=== PATIENT | male | born 1990 | race Two or more races ===

== ENCOUNTER 2024-05-04 18:46 | Inpatient (IN) ==
[2024-05-04] MEDS ORDERED: VANCOMYCIN CONSULT ACTIVE PRN (19:33)
--- NOTE | 2024-05-04 19:35 | Emergency Department Note ---
Impression & Plan Cellulitis of arm, left ED Provider Note NAME: LARA [id number] FERNY AGE: 33 SEX: M : 1990 ARRIVES VIA: Walk-In INFORMANT: Patient, ED PROVIDER(S): Siddhartha Scanlon DO CHIEF COMPLAINT: Cellulitis HPI: The patient is a 33-year-old male who presented to the emergency department from the [facility] for an evaluation of left arm swelling. The patient has been treated for cellulitis over the course the last few days. He has been the [facility] receiving IM Rocephin as well as oral Bactrim. He is also been on other antibiotics. He is not getting any better. They started noticing lymphangitic streaking and sent him to the emergency department today. ROS: See above HPI for pertinent positives & negatives. A total of 10 systems reviewed and were otherwise negative. PAST MEDICAL HISTORY: See Below PAST SURGICAL HISTORY: See Below FAMILY HISTORY: See Below SOCIAL HISTORY: See Below HOME MEDICATIONS: See Below ALLERGIES: See Below VITALS: See Below PHYSICAL EXAMINATION: GENERAL: Patient is awake alert in no acute distress patient is resting comfortably and showing no signs of anxiety EYES: The conjunctivae are clear. The pupils are round and reactive. EARS, NOSE, MOUTH AND THROAT: The nose is without any evidence of any deformity. NECK: The neck is nontender and supple. RESPIRATORY: Normal respiratory effort is noted there is no evidence of wheezing rhonchi or rales CARDIOVASCULAR: Regular rate and rhythm noted there no murmurs rubs or gallops normal S1 normal S2. GASTROINTESTINAL: The abdomen is soft. Abdomen is nontender. MUSCULOSKELETAL/EXTREMITIES: There is no evidence of gross deformity full range of motion is noted in the hips and shoulders. SKIN: There is swelling and erythema noted to the dorsum of the left hand. There is lymphangitic streaking going up the arm. There are small ulcerations over the dorsum of the left wrist as well as the left antecubital fossa. Pulses are symmetric in both hands. NEUROLOGIC: Patient is awake alert and oriented x3 MEDICAL DECISION MAKING: The patient is a 33-year-old male who presented to the emergency department for an evaluation of left arm swelling and redness. The patient has been dealing with a left arm cellulitis over the course of the last few days. He has been receiving antibiotics both parenterally as well as orally in the [facility]. He continues to have worsening redness and now has lymphangitic streaking. For this reason he was sent to the emergency department for further evaluation. I discussed the patient's laboratory results with him. He was reevaluated multiple times. He was treated with IV antibiotics and IV pain medication. Ultimately given the patient's findings on physical exam I discussed his case with the on-call [facility]. They have agreed to evaluate the patient in the emergency department. Triage Nursing notes reviewed. Prior medical records reviewed Vital Signs: reviewed and remarkable for no significant abnormalities Differential diagnosis: Cellulitis, abscess, MRSA infection, DVT, necrotizing fasciitis, dermatitis, drug eruption, allergic reaction, as well as other pathologies. ER treatment provided: See below Diagnostics interpreted by me: ECG: EKG was obtained in the emergency department. My interpretation is normal sinus rhythm at 67 bpm. There is no ectopy. There is no acute ST segment abnormalities noted. No previous tracing was available. Cardiac Monitoring: An order was placed for continuous cardiac monitoring. The monitor shows a rate of 73 bpm with sinus rhythm. Laboratory studies: As stated above and show below. Imaging studies: See below. Radiographic imaging was reviewed by myself Consultation(s): I discussed this case with Dr. Carter who is on-call for the [facility]. Past Med/Surg History Problem List (Updated 05/04/24 @ 20:44 by Siddhartha Scanlon DO) Cellulitis of arm, left (Acute) Social History Smoking Status: Never smoker Preferred Language: Salvadorean Feels Safe at Home: Yes Results & Data (ED) Vital Signs Vital Signs - 24 hr 05/04/24 18:59 05/04/24 19:33 Temperature 36.8 C Temperature Source Oral Pulse Rate 78 73 Respiratory Rate 18 Respiratory Effort / Characteristics Non-Labored Spontaneous Respiratory Depth Normal Respiratory Pattern Regular Blood Pressure 135/80 Blood Pressure Mean 98 Pulse Oximetry 98 Oxygen Delivery Method Room Air Sepsis Recent Fever Within 48 Hours Yes Sepsis New/Unexplained Change in Mental Status No Sepsis Action Taken by Nursing No Action Required Home Medications Current Medication List: was personally reviewed by me Laboratory Data Attestation: I reviewed the patient's lab results. 05/04/24 19:20 05/04/24 19:20 Lab Results 05/04/24 Range/Units 19:20 WBC 12.90 H (4.8-10.8) K/ul RBC 4.65 L (4.70-6.10) M/uL Hgb 13.7 L (14.0-18.0) g/dl Hct 39.8 L (42.0-52.0) % MCV 85.6 (80.0-100.0) fL MCH 29.5 (25.0-34.0) pg MCHC 34.4 (32.0-36.0) g/dL RDW Std Deviation 39.8 (36.4-46.3) fL RDW Coeff of Leslye 12.8 (11.5-14.5) % Plt Count 232 (130-400) K/uL MPV 8.8 L (9.4-12.4) fL Immature Gran % (Auto) 0.5 % Neut % (Auto) 69.9 % Lymph % (Auto) 18.1 % [place] % (Auto) 9.5 % Eos % (Auto) 1.6 % Baso % (Auto) 0.4 % Neut # (Auto) 9.01 H (1.40-6.50) K/uL Lymph # (Auto) 2.34 (1.20-3.40) K/uL [place] # (Auto) 1.23 H (0.11-0.59) K/uL Eos # (Auto) 0.20 (0.00-0.50) K/uL Baso # (Auto) 0.05 (0.00-0.20) K/uL Immature Gran # (Auto) 0.07 (0.01-0.20) K/uL Sodium 135 L (136-145) mmol/L Potassium 4.2 (3.5-5.1) mmol/L Chloride 103 (98-107) mmol/L Carbon Dioxide 25 (21-32) mmol/L Anion Gap 7 (3-11) BUN 15 (6-23) mg/dl Creatinine 1.08 (0.6-1.4) mg/dl Est Cr Clr Drug Dosing 101.8 ml/min Est GFR ( Amer) 102.5 ml/min Est GFR (Non-Af Amer) 88.5 ml/min BUN/Creatinine Ratio 13.9 (10-20) Glucose 84 (70-99(Fasting)) mg/dl Lactate 0.6 (0.4-2.0) mmol/L Calcium 9.6 (8.6-10.3) mg/dl Magnesium 2.1 (1.7-2.4) mg/dl Total Bilirubin 1.3 H (0.2-1.0) mg/dl Direct Bilirubin 0.2 (0-0.2) mg/dl AST 21 (13-39) U/L ALT 22 (7-52) U/L Alkaline Phosphatase 63 (34-104) U/L Troponin I High Sens 2.4 (0-20) pg/ml Total Protein 7.6 (6.0-8.3) gm/dl Albumin 4.6 (3.4-5.0) gm/dl Procalcitonin < 0.02 (0-0.5) ng/ml Administered Medications Discontinued Medications Ceftriaxone Sodium (Rocephin) 2,000 mg in 50 mls @ 100 mls/hr IV NOW STA Stop: 05/04/24 20:02 Last Infusion: 05/04/24 20:38 Dose: Infused Documented By: Admin: 05/04/24 20:01 Dose: 100 mls/hr Documented By: MISTI Morphine Sulfate (Morphine Sulfate 4 Mg/Ml 1 Ml Carp\Vial) 4 mg IV NOW STA Stop: 05/04/24 19:56 Last Admin: 05/04/24 20:01 Dose: 4 mg Documented By: MISTI Ondansetron HCl (Ondansetron Inj 2 Mg/Ml 2 Ml Vial) 4 mg IV NOW STA Stop: 05/04/24 19:56 Last Admin: 05/04/24 20:01 Dose: 4 mg Documented By: MISTI Imaging Data Attestation: I personally reviewed and interpreted this imaging study as follows: My Impression: 1 view chest x-ray was obtained in the emergency department. My interpretation is no free air or definite infiltrate, final report below. Radiologist's Impression: Chest X-Ray 05/04/24 19:33 XR chest 1V portable CLINICAL HISTORY: Sepsis TECHNIQUE: Single frontal radiograph of the chest was obtained. Comparison: None available at the time of this dictation. FINDINGS: No lines and tubes are seen. Cardiomegaly is noted. The lungs are clear. No evidence of pleural effusion or pneumothorax. IMPRESSION: No acute chest disease. ACT 112: Negative or not required by law. Electronically signed by: Simone Valle M.D. 05/04/2024 8:16 PM Discharge Plan Visit Data Chief Complaint: Wound Stated Complaint: WOUND - ONGOING ISSUE AFTER GETTING ROCEPHIN ED Provider: Siddhartha Scanlon Discharge Problem: Cellulitis of arm, left Patient Disposition: Being Evaluated by Hospitalist Forms Stand Alone Forms: [facility] Referrals Referrals: PCP,NO [Physician] -
[2024-05-04 19:48] LABS: Basophils # (auto) 0.05 K/uL (0.00-0.20); Basophils % (auto) 0.4 %; Eosinophils % (auto) 1.6 %; Hematocrit (blood only) 39.8 % (42.0-52.0); Hemoglobin 13.7 g/dl (14.0-18.0); Immature Granulocytes # (auto) 0.07 K/uL (0.01-0.20); Immature Granulocytes % (auto) 0.5 %; Lymphocytes # (auto) 2.34 K/uL (1.20-3.40); Lymphocytes % (auto) 18.1 %; Mean Corpuscular Hemoglobin 29.5 pg (25.0-34.0); Mean Corpuscular Hgb Conc 34.4 g/dL (32.0-36.0); Mean Corpuscular Volume 85.6 fL (80.0-100.0); Mean Platelet Volume 8.8 fL (9.4-12.4); Monocytes # (auto) 1.23 K/uL (0.11-0.59); Monocytes % (auto) 9.5 %; Neutrophils # (auto) 9.01 K/uL (1.40-6.50); Neutrophils % (auto) 69.9 %; Platelet Count 232 K/uL (130-400); RDW Coefficient of Variation 12.8 % (11.5-14.5); RDW Standard Deviation 39.8 fL (36.4-46.3); Red Blood Count 4.65 M/uL (4.70-6.10)
[2024-05-04 19:59] LABS: Albumin Level 4.6 gm/dl (3.4-5.0); BUN Creatinine Ratio 13.9 (10-20); Bilirubin Direct 0.2 mg/dl (0-0.2); Bilirubin,Total 1.3 mg/dl (0.2-1.0); Calcium 9.6 mg/dl (8.6-10.3); Creatinine Clr Calc Pharmacy 101.8 ml/min; Est GFR (African American) 102.5 ml/min; Est GFR (Non-African American) 88.5 ml/min; Magnesium 2.1 mg/dl (1.7-2.4); Potassium 4.2 mmol/L (3.5-5.1); Total Protein 7.6 gm/dl (6.0-8.3)
[2024-05-04] MEDS: ONDANSETRON INJ 2 MG/ML 2 ML VIAL IV STA (20:01)
[2024-05-04] MEDS: MoRPHine SULFATE 4 MG/ML 1 ML CARP\\VIAL IV STA (20:01)
[2024-05-04] MEDS: cefTRIAXone SODIUM 2,000 MG/50 ML BAG IV STA (20:01)
[2024-05-04 20:06] LABS: Troponin I High Sensitivity 2.4 pg/ml (0-20)
--- NOTE | 2024-05-04 20:17 | XRay Report ---
XR chest 1V portable CLINICAL HISTORY: Sepsis TECHNIQUE: Single frontal radiograph of the chest was obtained. Comparison: None available at the time of this dictation. FINDINGS: No lines and tubes are seen. Cardiomegaly is noted. The lungs are clear. No evidence of pleural effus ion or pneumothorax. IMPRESSION: No acute chest disease. ACT 112: Negative or not required by law. Electronically signed by: Simone Valle M.D. 05/04/2024 8:16 PM
[2024-05-04] MEDS: VANCOMYCIN HCL 1,750 MG in SODIUM CHLORIDE 0.9% 500 ML IV ONE (20:56)
[2024-05-04] MEDS: HYDROmorphone INJ 0.5 MG/0.5 ML SYR IV STA (21:28)
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
[2024-05-04] MEDS ORDERED: POLYETHYLENE (MIRALAX) 17 GM PACK PO PRN (22:48)
[2024-05-04] MEDS: oxyCODONE HCL IR 5 MG TAB (IMMEDIATE RELEASE) PO PRN (23:28)
[2024-05-04] MEDS: LORazepam 0.5 MG TAB SL STA (23:30)
[2024-05-04] MEDS: PIPER/TAZO 4.5g in D5W MINI-B 100 ML IV ONE (23:54)
[2024-05-05] MEDS: ENOXAPARIN INJ 40 MG/0.4 ML SYR SQ SCH (00:08)
[2024-05-05 00:31] LABS: Appearance Urine Cloudy (Clear); Bacteria Urine Automated None Seen (None Seen); Bilirubin Urine Negative (Negative); Blood Urine Negative (Negative); Cast Urine Automated 0-2 /lpf (0-2); Color Urine Yellow; Epithelial Cell Urine Auto 0-2 /hpf (0-2); Glucose Urine UA Negative (Negative); Ketones Urine Negative (Negative); Leukocyte Esterase Urine Negative (Negative); Nitrite Urine Negative (Negative); Protein Urine Negative (Negative); RBC Urine Automated 0-2 /hpf (0-2); Specific Gravity Urine 1.014 (1.000-1.030); Urobilinogen Urine Negative (Negative); WBC Urine Automated 0-5 /hpf (0-5); pH Urine 6.5 (4.5-7.5)
--- NOTE | 2024-05-05 04:08 | Pharmacy Report ---
Pharmacy PK ABX Note - Date of Service May 05, 2024 - Assessment and Plan Assessment * Mr Marlon is a 33 year old incarcerated M receiving vancomycin, Zosyn for treatment of L arm cellulitis. * Pt has no significant PMH, with the exception of some wounds for the past few months. It sounds like they started in his armpits and now involve his LUE. He has received abx recently, including doxycycline and Bactrim, which have not been effective. * Pertinent microbiologic data includes: BCx pending * ID has been consulted. Plan Vancomycin * Loading dose: 1750 mg IV x 1 * Maintenance dose: 1250 mg IV every 12 hours * Regimen is predicted to achieve target AUC/STEPHANI of 400-600 mg/L.hr * Will check a vancomycin level in 1-2 days Zosyn 4.5gm IV q8h Pharmacy will continue to follow and will adjust dose/frequency as necessary. Thank you. Pharmacy has transitioned to AUC monitoring for vancomycin. AUC/STEPHANI is the preferred PK/PD target and is associated with decreased risk of nephrotoxicity compared to traditional trough targets.
[2024-05-05] MEDS: ACETAMINOPHEN 325 MG TAB PO PRN (04:59)
[2024-05-05] MEDS: diphenhydrAMINE Capsule 25 MG CAP PO ONE ×2 (05:17→23:15)
[2024-05-05] MEDS: VANCOMYCIN HCL 1,250 MG in SODIUM CHLORIDE 0.9% 250 ML IV SCH (05:20)
[2024-05-05 06:13] LABS: Basophils # (auto) 0.04 K/uL (0.00-0.20); Basophils % (auto) 0.4 %; Eosinophils # (auto) 0.21 K/uL (0.00-0.50); Eosinophils % (auto) 2.1 %; Hematocrit (blood only) 36.6 % (42.0-52.0); Hemoglobin 12.6 g/dl (14.0-18.0); Immature Granulocytes # (auto) 0.06 K/uL (0.01-0.20); Immature Granulocytes % (auto) 0.6 %; Lymphocytes # (auto) 1.83 K/uL (1.20-3.40); Lymphocytes % (auto) 18.5 %; Mean Corpuscular Hemoglobin 29.6 pg (25.0-34.0); Mean Corpuscular Hgb Conc 34.4 g/dL (32.0-36.0); Mean Corpuscular Volume 86.1 fL (80.0-100.0); Monocytes # (auto) 0.89 K/uL (0.11-0.59); Neutrophils # (auto) 6.85 K/uL (1.40-6.50); Neutrophils % (auto) 69.4 %; Platelet Count 210 K/uL (130-400); RDW Coefficient of Variation 12.8 % (11.5-14.5); Red Blood Count 4.25 M/uL (4.70-6.10); White Blood Count 9.88 K/ul (4.8-10.8)
[2024-05-05] MEDS: HYDROmorphone INJ 0.5 MG/0.5 ML SYR IV PRN (06:24)
[2024-05-05 06:31] LABS: BUN Creatinine Ratio 10.7 (10-20); Calcium 8.4 mg/dl (8.6-10.3); Creatinine Clr Calc Pharmacy 97.8 ml/min; Est GFR (African American) 98.1 ml/min; Est GFR (Non-African American) 84.7 ml/min; Potassium 4.2 mmol/L (3.5-5.1)
[2024-05-05] MEDS: PIPERACILLIN/TAZOBACTAM 4.5 GM in DEXTROSE 5% MINI-B 100 ML IV SCH (07:09)
--- NOTE | 2024-05-05 08:39 | Hospitalist Progress Note ---
Date of Service May 05, 2024 Assessment & Plan (1) Cellulitis of arm, left: Plan: 33 yo M with no significant past medical history presents with infection of the left upper extremity. Patient states he had wounds in both armpits few months back and was treated with antibiotics (these are now healed). Now is having wounds in his left upper extremity for last couple of months on and off. The wounds are located just above the wrist multiple erythematous nodules seen. Streak like lymphatic spread seen above the lesions. Also pimple-like lesion seen on the right arm above the elbow region. Patient states he was treated with doxycycline and Bactrim but is not helping. Denies any fevers. Has pain in the lesions area. Denies any headache. Has cough with phlegm. Smokes e-cigarettes. Has some runny nose from allergies. Vision is okay. Some itching in his left ear. No nausea. States had one episode of chest tightness thinks from anxiety. Denies shortness of breath. No abdominal pain. Once in a while he has blood when he wipes after going bowel movement. Normal micturition. Resting comfortably and hemodynamically stable. Left upper extremity cellulitis maculopapular lesions seen above right wrist with lymphatic streaks seen and also a lesion in the left arm above elbow States having these lesions last couple of months on and off. And was treated with Bactrim and doxycycline per patient. Also had similar lesions on both his axillary region few months back and was treated- these are now healed. MRSA screen positive ER started on IV Vanco. IV Zosyn added on admission, will cont. for now. Will monitor response wound cultx ordered wound care ordered ID consult for further recommendations. Questionable GI bleed hb 13.7 will check stool for Hemoccult iron studies. Chest tightness says from anxiety two sets of troponin negative ekg ok will monitor. DVT prophylaxis - Lovenox Disposition - Medical floor Full code Admission and Anticipated Discharge Date Admission Date: May 04, 2024 Subjective Pt seen in follow up of cellulitis JADA Pt is a prisoner at [facility] ([place]) Was treated with abx at [facility] Currently on vanco + zosyn , blood cultx pending Pt is laying in bed in NAD, besides pain / discomfort of LUE denies any other c omplaints No fever, chills, chest pain, shortness of breath, no abd. pain Review of Systems Review of Systems: All systems reviewed & are unremarkable except as noted in Subjective Physical Exam Physical Exam: General- Not in distress Head- atraumatic Eyes- PERRL. ENT- oropharynx clear Neck- supple, no JVD. Lungs- clear to auscultation no wheezing or crackles Heart- regular rate and rhythm; no murmur, no gallop. Abdomen- normal bowel sounds, soft, nontender, no distension. Extremities- no pretibial edema, Neuro- alert, oriented x 3; PERRL, no facial palsy; no dysarthria; moves extremities. Skin- maculopapular lesions seen on above right wrist, streak like lymphatic spread seen from these lesions to elbow region. Another maculopapular lesion seen above left elbow region Results & Data Results & Data Vital Signs (Past 12 Hours) Vital Signs Temp Pulse Pulse Resp BP BP Pulse Ox 05/05/24 07:07 37.2 C 89 16 132/72 96 05/04/24 22:45 36.7 C 79 16 158/83 H 96 05/04/24 22:37 80 17 137/88 99 05/04/24 21:39 74 20 149/91 H 97 05/04/24 21:00 69 18 158/91 H 97 O2 Del Method 05/05/24 07:07 Room Air 05/04/24 22:45 Room Air 05/04/24 22:37 Room Air 05/04/24 21:39 Room Air 05/04/24 21:00 Room Air Laboratory Results 05/05/24 05/05/24 05/04/24 Range/Units Unknown 05:34 Unknown WBC 9.88 (4.8-10.8) K/ul RBC 4.25 L (4.70-6.10) M/uL Hgb 12.6 L (14.0-18.0) g/dl Hct 36.6 L (42.0-52.0) % MCV 86.1 (80.0-100.0) fL MCH 29.6 (25.0-34.0) pg MCHC 34.4 (32.0-36.0) g/dL RDW Std Deviation 40.0 (36.4-46.3) fL RDW Coeff of Leslye 12.8 (11.5-14.5) % Plt Count 210 (130-400) K/uL MPV 9.0 L (9.4-12.4) fL Immature Gran % (Auto) 0.6 % Neut % (Auto) 69.4 % Lymph % (Auto) 18.5 % Cherokee % (Auto) 9.0 % Eos % (Auto) 2.1 % Baso % (Auto) 0.4 % Neut # (Auto) 6.85 H (1.40-6.50) K/uL Lymph # (Auto) 1.83 (1.20-3.40) K/uL Cherokee # (Auto) 0.89 H (0.11-0.59) K/uL Eos # (Auto) 0.21 (0.00-0.50) K/uL Baso # (Auto) 0.04 (0.00-0.20) K/uL Immature Gran # (Auto) 0.06 (0.01-0.20) K/uL Sodium 135 L (136-145) mmol/L Potassium 4.2 (3.5-5.1) mmol/L Chloride 103 (98-107) mmol/L Carbon Dioxide 26 (21-32) mmol/L Anion Gap 6 (3-11) BUN 12 (6-23) mg/dl Creatinine 1.12 (0.6-1.4) mg/dl Est Cr Clr Drug Dosing 97.8 ml/min Est GFR ( Amer) 98.1 ml/min Est GFR (Non-Af Amer) 84.7 ml/min BUN/Creatinine Ratio 10.7 (10-20) Glucose 100 H (70-99(Fasting)) mg/dl Estimat Average Glucose Pending Hemoglobin A1c Pending Lactate (0.4-2.0) mmol/L Calcium 8.4 L (8.6-10.3) mg/dl Magnesium 2.0 (1.7-2.4) mg/dl Iron 21 L (35-175) mcg/dl TIBC 288 (250-450) mcg/dl Unsaturated IBC 267 (155-355) mcg/dl Transferrin % Sat 7 L (20-50) % Total Bilirubin (0.2-1.0) mg/dl Direct Bilirubin (0-0.2) mg/dl AST (13-39) U/L ALT (7-52) U/L Alkaline Phosphatase (34-104) U/L Troponin I High Sens 3.0 (0-20) pg/ml Total Protein (6.0-8.3) gm/dl Albumin (3.4-5.0) gm/dl Vitamin B12 Pending Folate Pending Procalcitonin (0-0.5) ng/ml Urine Color Yellow Urine Appearance Cloudy A (Clear) Urine pH 6.5 (4.5-7.5) Ur Specific Bland 1.014 (1.000-1.030) Urine Protein Negative (Negative) Urine Glucose (UA) Negative (Negative) Urine Ketones Negative (Negative) Urine Blood Negative (Negative) Urine Nitrite Negative (Negative) Urine Bilirubin Negative (Negative) Urine Urobilinogen Negative (Negative) Ur Leukocyte Esterase Negative (Negative) Urine WBC (Auto) 0-5 (0-5) /hpf Urine RBC (Auto) 0-2 (0-2) /hpf U Hyaline Cast (Auto) 0-2 (0-2) /lpf U Epithel Cells (Auto) 0-2 (0-2) /hpf Urine Bacteria (Auto) None Seen (None Seen) Nasal Screen MRSA (PCR) Positive A (Negative) 05/04/24 Range/Units 19:20 WBC 12.90 H (4.8-10.8) K/ul RBC 4.65 L (4.70-6.10) M/uL Hgb 13.7 L (14.0-18.0) g/dl Hct 39.8 L (42.0-52.0) % MCV 85.6 (80.0-100.0) fL MCH 29.5 (25.0-34.0) pg MCHC 34.4 (32.0-36.0) g/dL RDW Std Deviation 39.8 (36.4-46.3) fL RDW Coeff of Leslye 12.8 (11.5-14.5) % Plt Count 232 (130-400) K/uL MPV 8.8 L (9.4-12.4) fL Immature Gran % (Auto) 0.5 % Neut % (Auto) 69.9 % Lymph % (Auto) 18.1 % Cherokee % (Auto) 9.5 % Eos % (Auto) 1.6 % Baso % (Auto) 0.4 % Neut # (Auto) 9.01 H (1.40-6.50) K/uL Lymph # (Auto) 2.34 (1.20-3.40) K/uL Cherokee # (Auto) 1.23 H (0.11-0.59) K/uL Eos # (Auto) 0.20 (0.00-0.50) K/uL Baso # (Auto) 0.05 (0.00-0.20) K/uL Immature Gran # (Auto) 0.07 (0.01-0.20) K/uL Sodium 135 L (136-145) mmol/L Potassium 4.2 (3.5-5.1) mmol/L Chloride 103 (98-107) mmol/L Carbon Dioxide 25 (21-32) mmol/L Anion Gap 7 (3-11) BUN 15 (6-23) mg/dl Creatinine 1.08 (0.6-1.4) mg/dl Est Cr Clr Drug Dosing 101.8 ml/min Est GFR ( Amer) 102.5 ml/min Est GFR (Non-Af Amer) 88.5 ml/min BUN/Creatinine Ratio 13.9 (10-20) Glucose 84 (70-99(Fasting)) mg/dl Estimat Average Glucose Hemoglobin A1c Lactate 0.6 (0.4-2.0) mmol/L Calcium 9.6 (8.6-10.3) mg/dl Magnesium 2.1 (1.7-2.4) mg/dl Iron (35-175) mcg/dl TIBC (250-450) mcg/dl Unsaturated IBC (155-355) mcg/dl Transferrin % Sat (20-50) % Total Bilirubin 1.3 H (0.2-1.0) mg/dl Direct Bilirubin 0.2 (0-0.2) mg/dl AST 21 (13-39) U/L ALT 22 (7-52) U/L Alkaline Phosphatase 63 (34-104) U/L Troponin I High Sens 2.4 (0-20) pg/ml Total Protein 7.6 (6.0-8.3) gm/dl Albumin 4.6 (3.4-5.0) gm/dl Vitamin B12 Folate Procalcitonin < 0.02 (0-0.5) ng/ml Urine Color Urine Appearance (Clear) Urine pH (4.5-7.5) Ur Specific Bland (1.000-1.030) Urine Protein (Negative) Urine Glucose (UA) (Negative) Urine Ketones (Negative) Urine Blood (Negative) Urine Nitrite (Negative) Urine Bilirubin (Negative) Urine Urobilinogen (Negative) Ur Leukocyte Esterase (Negative) Urine WBC (Auto) (0-5) /hpf Urine RBC (Auto) (0-2) /hpf U Hyaline Cast (Auto) (0-2) /lpf U Epithel Cells (Auto) (0-2) /hpf Urine Bacteria (Auto) (None Seen) Nasal Screen MRSA (PCR) (Negative) Medications Administered Current Inpatient Medications Acetaminophen (Acetaminophen 325 Mg Tab) 650 mg PO Q4H PRN PRN Reason: pain/fever Stop: 06/03/24 22:47 Last Admin: 05/05/24 04:59 Dose: 650 mg Enoxaparin Sodium (Enoxaparin Inj 40 Mg/0.4 Ml Syr) 40 mg SQ PM RENETTA Stop: 06/03/24 22:47 Last Admin: 05/05/24 00:08 Dose: 40 mg Hydromorphone HCl (Hydromorphone Inj 0.5 Mg/0.5 Ml Syr) 0.5 mg IV Q4H PRN PRN Reason: Severe Pain (Scale 7, 8, 9,10) Stop: 05/18/24 22:47 Last Admin: 05/05/24 06:24 Dose: 0.5 mg Hydromorphone HCl (Hydromorphone Hcl 2 Mg Tab) 2 mg PO Q4H PRN PRN Reason: Mod-Sev Pain (Scale 4-10) Stop: 05/19/24 06:42 Piperacillin Sod/Tazobactam (Sod 4.5 gm/ Dextrose) 100 mls @ 25 mls/hr IV Q8H RENETTA; Protocol Stop: 05/12/24 05:59 Last Admin: 05/05/24 07:09 Dose: 25 mls/hr Vancomycin HCl 1,250 mg/ (Sodium Chloride) 275 mls @ 200 mls/hr IV Q12H RENETTA Stop: 05/12/24 05:59 Last Infusion: 05/05/24 07:17 Dose: Infused Miscellaneous Information (Vancomycin Consult Active) 1 each N/A UD PRN PRN Reason: Consult Stop: 06/03/24 19:32 Polyethylene Glycol (Polyethylene (Miralax) 17 Gm Pack) 17 gm PO DAILY PRN PRN Reason: Constipation Stop: 06/03/24 22:47
[2024-05-05 09:10] LABS: Folate (Folic Acid),Ser orPlas 13.42 ng/ml (>5.38)
[2024-05-05] MEDS: FAMOTIDINE 20MG IV PUSH 20 MG/5 ML SYR IV ONE (13:35)
[2024-05-05 14:42] LABS: C Reactive Protein 5.43 mg/dl (0-0.5)
[2024-05-05] MEDS: HYDROmorphone HCL 2 MG TAB PO PRN (15:10)
[2024-05-05] MEDS: OPTIRAY 320 100ml IV ONE (15:18)
--- NOTE | 2024-05-05 17:02 | CT Scan Report ---
CT wrist LT w con CLINICAL HISTORY: r/o abscess TECHNIQUE: Multidetector row helical CT of the right wrist was performed without intravenous contrast . Coronal and sagittal reformations were obtained. Automated dose lowering techniques and/or adjustme nt according to patient size were utilized for this examination. CT DOSE: 366.11 mGy.cm Comparison: None available at the time of this dictation. FINDINGS: The osseous structures are without fracture or dislocation. No joint effusion is seen. The joint spa david are maintained. There is skin thickening and soft tissue swelling in the distal lateral wrist. Th ere is an irregular fluid collection measuring approximately 18 x 9 mm. No well organized enhancing w all is seen. There is no muscle atrophy. IMPRESSION: Findings are compatible with cellulitis with a phlegmon versus developing abscess. No mature abscess is seen. ACT 112: Negative or not required by law. Electronically signed by: Simone Valle M.D. 05/05/2024 5:01 PM
--- NOTE | 2024-05-05 17:02 | Orthopedic Consultation ---
Date of Service May 05, 2024 Assessment & Plan (1) Cellulitis of arm, left: 33-year-old male presents with recurrent arm and upper extremity infections of unclear etiology. It is almost like he is thrown some septic emboli of some fashion. All areas look pretty benign and currently mostly cellulitis except f or the sore area on the radial styloid of his wrist which looks to be slightly purulent. Plan: I do believe this patient needs a medical and infectious disease workup. May need some workup to determine whether these do not some septic emboli. Will check a sed rate and C-reactive protein. The radial styloid area really would be best treated with an open irrigation debridement of this. I discussed this with him and he would like to give it a little time to see if antibiotics will take care of it. He does we want he is refusing a surgical management at this point. In light of this we will I try to soak this a couple times a day and see how it does since it is draining it may clear up with antibiotics. It certainly likely carlos take longer. Do once again I recommendation would be a surgical irrigation debridement of this area. Will follow along. Will try to get him to soak this at 3 times a day and a one third combination of hydrogen peroxide, Betadine, normal saline. Any orthopedic questions can be directed at [phone]. (2) Left breast abscess: History of Present Illness Reason for Consultation: . Left wrist and arm infection. Requesting Physician: . Attending Physician: Isac Alamo MD . Patient is a 33-year-old [id number] prisoner who I was consulted on for left arm infection. Patient has been incarcerated for several years. Recently he has developed these subcutaneous kind of infections initially in his armpits that several months ago resolved with antibiotics. More recently this started in his left arm. There is been no known trauma He was put on antibiotics. He has apparently grown out MRSA. He says the things have been developing. He says 1 developed in his mouth and ruptured was pretty odorous and then it resolved. The ones in his axilla apparently have resolved as well. He is got these isolated areas on his left wrist and his left distal arm area. Allergies Allergy/AdvReac Type Severity Reaction Status Date / Time No Known Allergies Allergy Unverified 05/04/24 21:02 Home Medications Medication Instructions Recorded Confirmed Type benzoyl peroxide 5 % topical 1 applic topical AMHS 05/04/24 05/04/24 History cleanser sulfamethoxazole 800 1 tab PO BID 05/04/24 05/04/24 History mg-trimethoprim 160 mg tablet Past Med/Surg History Problem List (Updated 05/05/24 @ 17:00 by Burak Menon MD) Left breast abscess Cellulitis of arm, left (Acute) Social History Smoking Status: Current every day smoker Tobacco Type: E-cigarettes / Vaping Second Hand Exposure: No; Do You Dip or Chew Tobacco: No; Tobacco Cessation Education Requested by Patient: No Hx Alcohol Use: No (not since incarceration) Hx Substance Use: Yes Last Used Substance Other:: 5-6 years ago Preferred Language: Bulgarian Communication Ability: Effective Distribution Center Assistant Required: No Beliefs That Will Affect Care: None Current Living Situation: Other Current Living Situation Comment: Correction[facility] Facility Other Information That Helps Us Care for You: No Feels Safe at Home: Yes Safety Concerns: Feels Safe At This Time Assistive Devices: None Review of Systems All systems reviewed & are unremarkable except as noted in HPI & below. Physical Exam . Physical examination of the right reveals a pleasant middle-age male. He is lying in bed looks pretty comfortable. Examination left wrist reveals a several areas of redness and scabbed areas most severely on the right radial styloid area and 2 areas in the back of his wrist. He does have some heaped up swelling on the radial styloid area with some apparent purulent drainage areas. No other purulent areas. He is got 1 little pimple in his antecubital fossa area as well which looks fairly firm without any abscess. The knee is very tender in these areas. There is no signs of joint infection. Results & Data Results & Data Laboratory Results . White cell count is normal at 9.88. Diagnostic Findings . PG Care Time/CCT Total # of Minutes Spent Total Time Spent with Patient: Total time spent is greater than 50% in coordination of care (as documented) at patient's floor/unit and/or counseling patient: Coding Level of Care Code 97480 IN/OBS CONSULT LVL 4,60M Diagnoses Cellulitis of arm, left L03.114 Left breast abscess N61.1
--- NOTE | 2024-05-05 17:48 | CT Scan Report ---
CT facial bones wo con CLINICAL HISTORY: drainage palate/upper jaw,?dental/sinus infection TECHNIQUE: Multidetector row helical CT of the maxillofacial bones was performed without administrati on of intravenous contrast, and processed with bone and soft tissue algorithms. Coronal and sagittal reformations were obtained. Automated dose lowering techniques and/or adjustment according to patient size were utilized for this exam. Comparison: None available at the time of this dictation. FINDINGS: Nasal spine irregularity is compatible with age-indeterminate fracture. Nasal bones are normal. There is a prominent periapical lucency about the left lateral maxillary incisor. There is also a bony def ect about the left maxillary second premolar. Evaluation for soft tissue abnormality is limited by st reak artifact however no drainable fluid collection is definitely seen. The temporomandibular joints are anatomically aligned. Pterygoid plates are intact. Zygomatic arches are intact. The globes are normal and symmetric, without proptosis, obvious disruption or lens dislocation. Ther e is no orbital radiopaque foreign body. The orbital mart are intact. The retrobulbar fat is without evidence of disruption. Extraocular muscles are normal and symmetric. Optic nerve sheath complexes are normal in course and caliber. Imaged portions of the paranasal sinuses and mastoid air cells are clear. IMPRESSION: There is periapical lucency likely representing periapical abscess about the left lateral maxillary i ncisor as well as possibly about the left second premolar. There is surrounding soft tissue stranding and no definite drainable soft tissue abscess. ACT 112: Negative or not required by law. Electronically signed by: Simone Valle M.D. 05/05/2024 5:46 PM
--- NOTE | 2024-05-05 19:35 | Oral/Maxillofacial Consult ---
Date of Consultation May 05, 2024 Assessment & Plan (1) Cystic lesion of maxilla determined by X-ray: (2) Abscess of pulp of tooth: (3) Dental fistula: (4) Abscess of left arm: (5) Cutaneous abscess of left wrist: History of Present Illness Reason for Consultation: drainage from anterior palate Attending Physician: Isac Alamo MD History of Present Illness I was asked to see this patient who was admitted for upper extremity cellulitics. He mentioned to the medical team that he is getting pus drainage from the anterior palate. I ordered a CT scan-The CT scan shows a 1x1.5 radiolucent lesion associated with the edentulous site # 9 and the apex of tooth # 10. The over all area of the lesion is about 1 x 1.5 and has eroded the cortical bone of the palate. There is also a smaller radiolucent lesion with cortical erosion at site # 13. There is no doubt that the cystic lesion will need to be excised/curetted with the extraction of # 10. Once the lesion is removed the bone should heal uneventfully and allow future partial, implant or bridge replacement. I will saw Trev on Monday and discuss the suggested treatment Excision of the 1 x 1.5 lesion with extraction of the infected tooth # 10 Plan in OR, I also strongly suggested that he let Dr Menon do the I and D under the same general anaesthesia tomorrow AM I cam work around dr Lowry schedule tomorrow in the OR. Oral Maxillofacial Surgery Exam Present Complaint: I have pain/swelling/drainage from the roof of my mouth-pus discharge with very bad taste! Symptoms have been ongoing for a while. Oral Exam: Finding--A large 1 x 1.5 radiolucent lesion anterior palate associated with tooth # 10, excision of the lesion and # 10 tooth Excision is clinical indicated. Imaging: Imaging CT maxillofacial CT facial bones wo con CLINICAL HISTORY: drainage palate/upper jaw,?dental/sinus infection FINDINGS: Nasal spine irregularity is compatible with age-indeterminate fracture. Nasal bones are normal. There is a prominent periapical lucency about the left lateral maxillary incisor. There is also a bony defect about the left maxillary second premolar. Evaluation for soft tissue abnormality is limited by streak artifact however no drainable fluid collection is definitely seen. The temporomandibular joints are anatomically aligned. Pterygoid plates are intact. Zygomatic arches are intact. The globes are normal and symmetric, without proptosis, obvious disruption or lens dislocation. There is no orbital radiopaque foreign body. The orbital mart are intact. The retrobulbar fat is without evidence of disruption. Extraocular muscles are normal and symmetric. Optic nerve sheath complexes are normal in course and caliber. Imaged portions of the paranasal sinuses and mastoid air cells are clear. IMPRESSION: There is periapical lucency likely representing periapical abscess about the left lateral maxillary incisor as well as possibly about the left second premolar. There is surrounding soft tissue stranding and no definite drainable soft tissue abscess. 1x1.5 radiolucent "cystic"like lesion anterior maxilla associated with area 9-10 and 13 Soft tissue: The floor of the mouth, tongue, soft palate, posterior pharyngeal area all with in normal limits, no pathology or abnormal findings noted. There is a draining fistula with swelling anterior hard palate, 1 x 1.5 radiolucent defect noted on CT. Oral Care: Overall oral care is fair Occlusion: Class I missing teeth TMJ exam: No pop, clicking, pain, good ROM, No history of TMJ injury or dysfunction Periodontal exam: Early gingival tissue inflammation with evidence of periodontal pathology. Head/Neck exam: Neck is supple, FROM, Able to extend and flex neck w/o difficulty, no masses, no abnormalities, no airway issues, no evidence of sleep apnea. Treatment Plan: Take to OR tomorrow at 9:40 for excision of anterior palatal lesion, close palatal fistula and extraction of # 10 Set up with general anesthesia in hospital due to complexity of the procedure DR Menon will also be doing the I and D of his elbow and wrist I reviewed the treatment plan and consent with the patient, the [facility] guards were present. Understanding was expressed. Time was given for questions regarding the surgery, risks and post op care. Discussed alternative to treatment--procedure as planned, Do not do surgery Risks discussed: Bleeding,Pain,swelling,infection, dry socket, delayed healing, nerve injury to face,lips,tongue,chin area which could be permanent (rare). TMJ, jaw stiffness, change in bite (rare), ear pain (referred). Sinus problems like fistula or infection. Need to leave a small root fragment in place to avoid injury to nerve or sinus. Relationship of wisdom teeth to nerve/sinus and risk of jaw fracture. Home care reviewed: follow up care with Dr Gross. diet=[id number] dental. Discussed activity level, driving/work while on Rx pain Meds. Surgery to be set up May 07 at 9:40 in the OR with general anesthesia Allergies Allergy/AdvReac Type Severity Reaction Status Date / Time piperacillin [From Zosyn] Allergy Itching Verified 05/05/24 23:38 tazobactam [From Zosyn] Allergy Itching Verified 05/05/24 23:38 Home Medications Medication Instructions Recorded Confirmed Type benzoyl peroxide 5 % topical 1 applic topical AMHS 05/04/24 05/04/24 History cleanser sulfamethoxazole 800 1 tab PO BID 05/04/24 05/04/24 History mg-trimethoprim 160 mg tablet Patient History Social History Smoking Status: Current every day smoker Tobacco Type: E-cigarettes / Vaping Second Hand Exposure: No; Do You Dip or Chew Tobacco: No; Tobacco Cessation Education Requested by Patient: No Hx Alcohol Use: No (not since incarceration) Hx Substance Use: Yes Last Used Substance Other:: 5-6 years ago Preferred Language: Irish Communication Ability: Effective Marketing Data Specialist Required: No Beliefs That Will Affect Care: None Current Living Situation: Other Current Living Situation Comment: Correctional Facility Other Information That Helps Us Care for You: No Feels Safe at Home: Yes Safety Concerns: Feels Safe At This Time Assistive Devices: None Results & Data Vital Signs (Past 12 Hours) Vital Signs Temp Pulse Resp BP Pulse Ox O2 Del Method 05/05/24 15:46 36.8 C 74 16 150/71 H 97 Room Air PG Care Time/CCT Total # of Minutes Spent Total Time Spent with Patient: Total time spent is greater than 50% in coordination of care (as documented) at patient's floor/unit and/or counseling patient: Coding Level of Care Code 73574 OFFICE CONSULT LVL Diagnoses Cystic lesion of maxilla determined by X-ray M27.40 Abscess of pulp of tooth K04.01 Dental fistula K04.6 Abscess of left arm L02.414 Cutaneous abscess of left wrist L02.414 CPT Codes EXCISE MAX/ZYGOMA B9 TUMOR - 63297 ([id number]) Extraction of Erupted Tooth - D7140 ([id number])
[2024-05-05] MEDS: diphenhydrAMINE 50 MG/ML VIAL IV STA (20:28)
[2024-05-05] MEDS ORDERED: ERTAPENEM SODIUM 1,000 MG in SYRINGE 0 ML IV SCH (23:15)
--- NOTE | 2024-05-06 06:03 | Electrocardiogram Report ---
Test Reason : Blood Pressure : / mmHG Vent. Rate : 067 BPM Atrial Rate : 067 BPM P-R Int : 220 ms QRS Dur : 094 ms QT Int : 380 ms P-R-T Axes : 032 019 032 degrees QTc Int : 401 ms Sinus rhythm with 1st degree A-V block Otherwise normal ECG No previous ECGs available Confirmed by Moises Luther ([id number]) on 05/06/2024 6:03:06 AM Referred By: [facility] Confirmed By:Moises Luther
[2024-05-06 07:47] LABS: Hematocrit (blood only) 39.1 % (42.0-52.0); Hemoglobin 13.5 g/dl (14.0-18.0); Mean Corpuscular Hemoglobin 29.8 pg (25.0-34.0); Mean Corpuscular Hgb Conc 34.5 g/dL (32.0-36.0); Mean Corpuscular Volume 86.3 fL (80.0-100.0); Mean Platelet Volume 8.9 fL (9.4-12.4); Platelet Count 200 K/uL (130-400); RDW Coefficient of Variation 12.3 % (11.5-14.5); RDW Standard Deviation 38.9 fL (36.4-46.3); Red Blood Count 4.53 M/uL (4.70-6.10); White Blood Count 9.15 K/ul (4.8-10.8)
[2024-05-06] MEDS: ERTAPENEM SODIUM 1,000 MG in SYRINGE 0 ML IV SCH (07:52)
[2024-05-06 07:58] LABS: BUN Creatinine Ratio 13.7 (10-20); Calcium 8.7 mg/dl (8.6-10.3); Creatinine Clr Calc Pharmacy 115.3 ml/min; Est GFR (African American) 119.7 ml/min; Est GFR (Non-African American) 103.3 ml/min; Magnesium 2.1 mg/dl (1.7-2.4); Phosphorus 2.6 mg/dl (2.5-4.9); Potassium 4.4 mmol/L (3.5-5.1)
--- NOTE | 2024-05-06 08:26 | Hospitalist Progress Note ---
Date of Service May 06, 2024 Assessment & Plan (1) Cellulitis of arm, left: Plan: 33 yo M with no significant past medical history presents with infection of the left upper extremity. Patient states he had wounds in both armpits few months back and was treated with antibiotics (these are now healed). Now is having wounds in his left upper extremity for last couple of months on and off. The wounds are located just above the wrist multiple erythematous nodules seen. Streak like lymphatic spread seen above the lesions. Also pimple-like lesion seen on the right arm above the elbow region. Patient states he was treated with doxycycline and Bactrim but is not helping. Denies any fevers. Has pain in the lesions area. Denies any headache. Has cough with phlegm. Smokes e-cigarettes. Has some runny nose from allergies. Vision is okay. Some itching in his left ear. No nausea. States had one episode of chest tightness thinks from anxiety. Denies shortness of breath. No abdominal pain. Once in a while he has blood when he wipes after going bowel movement. Normal micturition. Resting comfortably and hemodynamically stable. Left upper extremity cellulitis maculopapular lesions seen above right wrist with lymphatic streaks seen and also a lesion in the left arm above elbow States having these lesions last couple of months on and off. And was treated with Bactrim and doxycycline per patient. Also had similar lesions on both his axillary region few months back and was treated- these are now healed. MRSA screen positive ER started on IV Vanco. IV Zosyn added on admission, then developed itching and switched overnight to ertapenem Will monitor response wound cultx pending wound care ordered Orthopedics consulted - seen by Dr. Menon - recommendation would be a surgical irrigation debridement of this area ID consult for further recommendations. Palatal cyst/ abscess, tooth infection - Dental surgery - Dr. Gross consulted (and discussed with at the bedside) - plan for OR tomorrow - #10 tooth extraction and palatal cyst/ abscess drainage Questionable GI bleed hb 13.7 will check stool for Hemoccult iron studies. Chest tightness - resolved says from anxiety two sets of troponin negative ekg ok will monitor. DVT prophylaxis - Lovenox Disposition - Medical floor Full code Admission and Anticipated Discharge Date Admission Date: May 04, 2024 Subjective Pt seen in follow up of cellulitis LUE Pt is a prisoner at [facility] [place] Was treated with abx at [facility] Initially on vanco + zosyn -> reported itching overnight w/ zosyn and was switched to ertapenem blood cultx and wound cultx - pending Seen by orthopedics for LUE / wrist wound &infection - recommend I&D Seen by dental surg. for palatal cyst/ abscess and tooth infection - Dr. Gross- discussed w/ Dr. Gross at the bedside this AM - plans for OR #10 tooth extraction and palatal cyst/ abscess drainage Pt is currently laying in bed in NAD No fever, chills, chest pain, shortness of breath, no abd. pain Review of Systems Review of Systems: All systems reviewed & are unremarkable except as noted in Subjective Physical Exam Physical Exam: General- Not in distress Head- atraumatic Eyes- PERRL. ENT- oropharynx clear Neck- supple, no JVD. Lungs- clear to auscultation no wheezing or crackles Heart- regular rate and rhythm; no murmur, no gallop. Abdomen- normal bowel sounds, soft, nontender, no distension. Extremities- no pretibial edema, Neuro- alert, oriented x 3; PERRL, no facial palsy; no dysarthria; moves extremities. Skin- maculopapular lesions seen on above right wrist, streak like lymphatic spread seen from these lesions to elbow region. Another maculopapular lesion seen above left elbow region Results & Data Results & Data Vital Signs (Past 12 Hours) Vital Signs Temp Pulse Pulse Resp BP Pulse Ox O2 Del Method 05/06/24 07:14 37.2 C 68 18 112/62 97 Room Air 05/05/24 20:27 37.2 C 67 16 134/80 97 Room Air Laboratory Results 05/06/24 05/05/24 05/05/24 Range/Units 07:19 05:34 05:34 WBC 9.15 (4.8-10.8) K/ul RBC 4.53 L (4.70-6.10) M/uL Hgb 13.5 L (14.0-18.0) g/dl Hct 39.1 L (42.0-52.0) % MCV 86.3 (80.0-100.0) fL MCH 29.8 (25.0-34.0) pg MCHC 34.5 (32.0-36.0) g/dL RDW Std Deviation 38.9 (36.4-46.3) fL RDW Coeff of Leslye 12.3 (11.5-14.5) % Plt Count 200 (130-400) K/uL MPV 8.9 L (9.4-12.4) fL ESR 24 H (0-15) mm/hr Sodium 136 (136-145) mmol/L Potassium 4.4 (3.5-5.1) mmol/L Chloride 104 (98-107) mmol/L Carbon Dioxide 28 (21-32) mmol/L Anion Gap 4 (3-11) BUN 13 (6-23) mg/dl Creatinine 0.95 (0.6-1.4) mg/dl Est Cr Clr Drug Dosing 115.3 ml/min Est GFR ( Amer) 119.7 ml/min Est GFR (Non-Af Amer) 103.3 ml/min BUN/Creatinine Ratio 13.7 (10-20) Glucose 93 (70-99(Fasting)) mg/dl Estimat Average Glucose Cancelled Estimated Ave Glu mmol/L Pending Estimated Ave Glu mg/dL Pending Hemoglobin A1c Pending Cancelled Calcium 8.7 (8.6-10.3) mg/dl Phosphorus 2.6 (2.5-4.9) mg/dl Magnesium 2.1 (1.7-2.4) mg/dl Iron 21 L (35-175) mcg/dl TIBC 288 (250-450) mcg/dl Unsaturated IBC 267 (155-355) mcg/dl Transferrin % Sat 7 L (20-50) % C-Reactive Protein 5.43 H (0-0.5) mg/dl Vitamin B12 252 (180-914) pg/ml Folate 13.42 (>5.38) ng/ml Medications Administered Current Inpatient Medications Acetaminophen (Acetaminophen 325 Mg Tab) 650 mg PO Q4H PRN PRN Reason: pain/fever Stop: 06/03/24 22:47 Last Admin: 05/05/24 11:43 Dose: 650 mg Enoxaparin Sodium (Enoxaparin Inj 40 Mg/0.4 Ml Syr) 40 mg SQ PM ERNETTA Stop: 06/03/24 22:47 Last Admin: 05/05/24 21:26 Dose: 40 mg Hydromorphone HCl (Hydromorphone Inj 0.5 Mg/0.5 Ml Syr) 0.5 mg IV Q4H PRN PRN Reason: Severe Pain (Scale 7, 8, 9,10) Stop: 05/18/24 22:47 Last Admin: 05/06/24 05:57 Dose: 0.5 mg Hydromorphone HCl (Hydromorphone Hcl 2 Mg Tab) 2 mg PO Q4H PRN PRN Reason: Mod-Sev Pain (Scale 4-10) Stop: 05/19/24 06:42 Last Admin: 05/06/24 07:53 Dose: 2 mg Vancomycin HCl 1,250 mg/ (Sodium Chloride) 275 mls @ 200 mls/hr IV Q12H [facility] Stop: 05/12/24 05:59 Last Infusion: 05/06/24 07:51 Dose: Infused Ertapenem 1,000 mg/ Syringe 10 mls @ 2 mls/min IV Q24H RENETTA Stop: 05/13/24 07:59 Last Admin: 05/06/24 07:52 Dose: 2 mls/min Miscellaneous Information (Vancomycin Consult Active) 1 each N/A UD PRN PRN Reason: Consult Stop: 06/03/24 19:32 Polyethylene Glycol (Polyethylene (Miralax) 17 Gm Pack) 17 gm PO DAILY PRN PRN Reason: Constipation Stop: 06/03/24 22:47
--- NOTE | 2024-05-06 14:46 | Infectious Disease Consult ---
Date of Service May 06, 2024 Telehealth Information I performed this visit using a real-time telehealth connection between my location and the patients location ([facility]). After connecting through interactive tele-video, patient was identified by name and date of and/or wristband check.Patient (or authorized healthcare registered representative) was informed that this was a telemedicine visit and it was being conducted confidentially over secure lines. My office door was closed and no one else was present in the room with me.Patient (or authorized healthcare registered representative) provided consent to proceed with the visit, expressed an understanding of privacy and security of the telemedicine visit, and gave permission to have a hospital registered representative in the room in order to assist with the visit and to conduct portions of the visit, as needed. I informed the patient (or authorized healthcare registered representative) that I reviewed their record and presented the opportunity for them to ask any questions regarding the visit today. The patient agreed to participate. Assessment & Plan (1) Cellulitis of arm, left: Plan Assessment: LLE cellulitis Hx of allergy to pip/bubba (itching) Plan: - Stopped vancomycin iv and ertapenem - Start cefazolin 2 gm iv q8 hours for suspected Staphylococcus and Streptococcus infection. Cefazolin is safe to use for any patient with history of allergy to penicillin as it does not share the same R1 side change. However, the patient states that he tolerated amoxicillin without any reaction in the recent past: I doubt the patient has PCN or zosyn allergy. - I recommend I&D for the two sites as needed: the patient needs to be evaluate if abscess is forming for the lesion in L biceps area. - If the patient continues to do well on cefazolin, may discharge the patient on cefadroxil 1 gm po 12 hours or keflex 500 mg po q6 hours to complete total 14 days of abx therapy - I recommend dermatology evaluation for the nodules. I am convinced that the patient has cellulitis but not sure if the cellulitis is the primary condition. The infection he has now may be an superimposed infection. - Please, contact ID if he does not continue to improve on cefazolin. More than 50% of [id number] visit was spent counseling and coordinating care pertaining to the patient's infection diagnosis, additional work-up, and treatment option(s) as well as potential adverse events of the treatment. History of Present Illness History of Present Illness This is a 33 y/o male (J) from [facility] with no signficant PMHx who presented to [facility] for presumed LUE infection. He had wounds in both armpits few months ago, which were treated with antibiotics. Since then, he has had wounds in LUE last couple of months off and on, located on biceps and above the wrist with multiple erythematous, painful nodules. This time he developed nodules on both areas with streaks of redness similar to lymphangitic spread w/ tenderness, warmth and induration. He tried doxycycline and bactrim, 7 days each but without improvement, without any improvement. No fever but he felt warm. No fever but mild leukocytosis was noted on admission. CT wrist showed findings consistent w/ cellulitis w/ a phlegmon vs developing abscess. Currently on vancomycin iv and ertapenem. The patient is resting in bed comfortably, reporting the redness improving since admission. Denies f/c, n/v, abd pain, diarrhea, coughing, cp, sob or urinary sy mptoms. Serena at beside was assisting during the encounter. Allergies Allergy/AdvReac Type Severity Reaction Status Date / Time piperacillin [From Zosyn] Allergy Itching Verified 05/05/24 23:38 tazobactam [From Zosyn] Allergy Itching Verified 05/05/24 23:38 Home Medications Medication Instructions Recorded Confirmed Type benzoyl peroxide 5 % topical 1 applic topical [facility] 05/04/24 05/04/24 History cleanser sulfamethoxazole 800 1 tab PO BID 05/04/24 05/04/24 History mg-trimethoprim 160 mg tablet Patient History Social History Smoking Status: Current every day smoker Tobacco Type: E-cigarettes / Vaping Second Hand Exposure: No; Do You Dip or Chew Tobacco: No; Tobacco Cessation Education Requested by Patient: No Hx Alcohol Use: No (not since incarceration) Hx Substance Use: Yes Last Used Substance Other:: 5-6 years ago Preferred Language: Japanese Communication Ability: Effective Project Scientist Required: No Beliefs That Will Affect Care: None Current Living Situation: Other Current Living Situation Comment: [facility] Other Information That Helps Us Care for You: No Feels Safe at Home: Yes Safety Concerns: Feels Safe At This Time Assistive Devices: None Review of Systems as HPI and all others negative Physical Exam General: no acute distress Lungs: breathing comfotably on RA Skin: diffuse erythema and swelling noted on anterior side of the distal L biceps area and dorsum of the L wrist; induration, tenderness and warmth noted when Serena palpated the area. Swelling noted on L hand. Results & Data Vital Signs (Past 12 Hours) Vital Signs Temp Pulse Resp BP Pulse Ox O2 Del Method 05/06/24 07:14 37.2 C 68 18 112/62 97 Room Air Laboratory Results Labs WBC 12.9K ->-> 9.15K H 13.5 Plt 200K Cr 0.95 LFT unremarkable MRSA screen (05/04): positive Blood cx (05/04): NGTD CRP 5.43 (05/05) UA (05/05): unremarkable L wrist cx x3 (05/05): Staphylococcus sp CT wrist (05/05): Findings are compatible with cellulitis with a phlegmon versus developing abscess. No mature abscess is seen. CT face (05/05): There is periapical lucency likely representing periapical abscess about the left lateral maxillary incisor as well as possibly about the left second premolar. There is surrounding soft tissue stranding and no definite drainable soft tissue abscess.
--- NOTE | 2024-05-06 21:01 | Orthopedic Progress Note ---
Date of Service May 06, 2024 Assessment & Plan (1) Cutaneous abscess of left wrist: Plan: 33-year-old male prisoner with a left wrist and distal arm abscesses. Minimal response to antibiotics at this point. Other areas have improved. He now would like to proceed with irrigation debridement now that he asked to have something done with his oral cavity. Plan: Ronnell taken the operating room do irrigation debridement of the left wrist abscess as well as a left distal arm abscess. It is possible we may need to leave these open and maybe even place a wound VAC depending on what we find. The risks Mente this procedure explained and he understands. He is likely have some numbness in this area. He may need some additional surgery as well. Will continue soaking in the meantime. Keep n.p.o. after midnight. (2) Abscess of left arm: Admission and Anticipated Discharge Date Admission Date: May 04, 2024 Subjective Persistent left wrist pain and discomfort swelling and infection along with a left arm abscess. He has been soaking this for the past 24 hours. There really no noticeable improvement. He has been seen by Dr. Gross who recommended a surgical treatment of basal oral cavity. The patient is now elected proceed with surgical treatment of his left wrist and arm to a cure the infection. Physical Exam Physical Exam: Physical examination left wrist reveals an obvious abscess on the radial styloid area. It looks to be mostly subcu. The other areas on the dorsal side of the wrist seem to be improving. Still quite tender. He is neurologically intact examination of left arm reveals a abscess just proximal to the antecubital fossa. There is clearly some fluid and firmness and induration. No signs of elbow joint involvement. Full elbow motion. He is neurologically intact Results & Data Vital Signs (Past 12 Hours) Vital Signs Temp Pulse Resp BP Pulse Ox O2 Del Method 05/06/24 20:20 36.7 C 75 18 135/80 96 Room Air 05/06/24 15:39 36.7 C 76 18 142/88 H 96 Room Air Laboratory Results White cell count 9.15. Hematocrit of 13.5. Diagnostic Findings CT scan of the wrist reveals an obvious abscess in the subcutaneous tissues of the radial styloid area. No other signs of problems.
[2024-05-06] MEDS: diphenhydrAMINE Capsule 25 MG CAP PO ONE (21:04)
[2024-05-07 04:52] LABS: EAG mmol/L 5.7 mmol/L; HA1C 5.2 (<5.7)
[2024-05-07 06:03] LABS: Hematocrit (blood only) 39.9 % (42.0-52.0); Hemoglobin 13.7 g/dl (14.0-18.0); Mean Corpuscular Hemoglobin 29.7 pg (25.0-34.0); Mean Corpuscular Hgb Conc 34.3 g/dL (32.0-36.0); Mean Corpuscular Volume 86.4 fL (80.0-100.0); Platelet Count 206 K/uL (130-400); RDW Coefficient of Variation 12.4 % (11.5-14.5); RDW Standard Deviation 39.2 fL (36.4-46.3); Red Blood Count 4.62 M/uL (4.70-6.10); White Blood Count 6.72 K/ul (4.8-10.8)
[2024-05-07 06:33] LABS: BUN Creatinine Ratio 22.9 (10-20); Calcium 9.1 mg/dl (8.6-10.3); Creatinine Clr Calc Pharmacy 114.1 ml/min; Est GFR (African American) 118.2 ml/min; Magnesium 2.1 mg/dl (1.7-2.4); Phosphorus 3.6 mg/dl (2.5-4.9); Potassium 4.2 mmol/L (3.5-5.1)
--- NOTE | 2024-05-07 06:46 | History & Physical Bridge Note ---
Date of Service May 07, 2024 History & Physical Bridge Note I have examined the patient, reviewed the History & Physical and in the interval since the performance of the History & Physical I have noted the following changes of clinical significance: no changes noted
[2024-05-07] MEDS: VANCOMYCIN LEVEL ONE (07:05)
[2024-05-07] MEDS: VANCOMYCIN HCL 1,750 MG in SODIUM CHLORIDE 0.9% 500 ML IV SCH (07:45)
--- NOTE | 2024-05-07 08:09 | Hospitalist Progress Note ---
Date of Service May 07, 2024 Assessment & Plan (1) Dental fistula: (2) Cystic lesion of maxilla determined by X-ray: (3) Abscess of left arm: (4) Cutaneous abscess of left wrist: Plan 33 yo M with no significant past medical history presents with infection of the left upper extremity. Patient states he had wounds in both armpits a few months ago and was treated with antibiotics (these are now healed). Now is having wounds in his left upper extremity for last couple of months on and off. The wounds are located just above the wrist, multiple erythematous nodules seen. Streak like lymphatic spread seen above the lesions. Also pimple-like lesion seen on the right arm above the elbow region. Patient states he was treated with doxycycline and Bactrim but is not helping. Denies any fevers. Has pain in the lesions area. Left upper extremity cellulitis maculopapular lesions seen above right wrist with lymphatic streaks seen and also a lesion in the left arm above elbow States having these lesions last couple of months on and off. And was treated with Bactrim and doxycycline per patient. Also had similar lesions on both his axillary region few months back and was treated- these are now healed. MRSA screen positive ER started on IV Vanco. IV Zosyn added on admission, then developed itching and switched overnight to ertapenem wound cultx growing staph Blood Cx x2 sets NGTD wound care consulted Orthopedics consulted - seen by Dr. Menon -s/p surgical irrigation debridement of this area on 05/07 -wound cultures from I &D pending ID consulted for further recommendations. Recommended the following - Stopped vancomycin iv and ertapenem - Start cefazolin 2 gm iv q8 hours for suspected Staphylococcus and Streptococcus infection. Cefazolin is safe to use for any patient with history of allergy to penicillin as it does not share the same R1 side change. However, the patient states that he tolerated amoxicillin without any reaction in the recent past: I doubt the patient has PCN or zosyn allergy. - I recommend I&D for the two sites as needed: the patient needs to be evaluate if abscess is forming for the lesion in L biceps area. - If the patient continues to do well on cefazolin, may discharge the patient on cefadroxil 1 gm po 12 hours or keflex 500 mg po q6 hours to complete total 14 days of abx therapy - I recommend dermatology evaluation for the nodules. I am convinced that the patient has cellulitis but not sure if the cellulitis is the primary condition. The infection he has now may be an superimposed infection. - Please, contact ID if he does not continue to improve on cefazolin. Continued ertapenem for anaerobic coverage for tooth abscess as well (see below). Vancomycin discontinued. Will discuss with ID once more Outpt Dermatology followup Palatal cyst/ abscess, tooth infection Face CT concerning for dental abscess Dental surgery - Dr. Gross consulted (and discussed with at the bedside) -s/p #10 tooth extraction and palatal cyst/ abscess drainage on 05/07 concurrently with above procedure Appreciate OMFS recs Continue with Ertapenem for anaerobic coverage, vancomycin discontinued. Will discuss with ID once more Iron Deficiency anemia Hgb in 13 range Iron levels low Started on po iron supplements with docusate for constipation Chest tightness - resolved Cardiomegaly says from anxiety two sets of troponin negative ekg unremarkable Consider echo, chest xray noting cardiomegaly will monitor. Diet: regular DVT prophylaxis - Lovenox resumed Dispo: return to retirement once medically stable Admission and Anticipated Discharge Date Admission Date: May 04, 2024 Subjective pt was seen after his surgeries. States that he was not in pain. per nursing, pt nauseous and requesting zofran. Otherwise denied acute concerns. Review of Systems Review of Systems: All systems reviewed & are unremarkable except as noted in Subjective Physical Exam Physical Exam: General: Alert, oriented. No acute distress Skin: left arm and forearm bandaged Psych: Appropriate mood and affect Neuro: No gross deficits HEENT: NC/AT Chest: Nontender to palpation. CV: RRR Resp: Breath sounds clear bilaterally, no increased effort of breathing. Abdomen: Soft, nontender, nondistended Extremities: No edema in lower extremities bilaterally. Results & Data Results & Data Vital Signs (Past 12 Hours) Vital Signs Temp Pulse Resp BP Pulse Ox O2 Del Method 05/07/24 07:32 36.9 C 72 16 153/77 H 96 Room Air 05/06/24 20:20 36.7 C 75 18 135/80 96 Room Air
[2024-05-07] MEDS ORDERED: DEXAMETHASONE SOD INJ 4 MG/ML VIAL ONE (08:40)
[2024-05-07] MEDS ORDERED: ROCURONIUM BROMIDE 10 MG/ML 5 ML VIAL IV ONE (08:40)
[2024-05-07] MEDS ORDERED: fentaNYL citrate PF 100 MCG/2 ML VIAL ONE ×2 (08:40→11:27)
[2024-05-07] MEDS ORDERED: LIDOCAINE 2% 2 ML VIAL/AMP(20MG/ML) INFIL ONE (08:40)
[2024-05-07] MEDS ORDERED: PROPOFOL IV EMULSION 10 MG/ML 20 ML VIAL IV ONE (08:40)
[2024-05-07] MEDS ORDERED: ONDANSETRON INJ 2 MG/ML 2 ML VIAL ONE (08:40)
[2024-05-07] MEDS ORDERED: LARYING-O-JET KIT (LTA) ONE (08:40)
[2024-05-07] MEDS ORDERED: MIDAZOLAM HCL 1 MG/ML 2ML VIAL ONE (08:40)
--- NOTE | 2024-05-07 09:20 | Anesthesiology Consultation ---
Date of Service May 07, 2024 Assessment & Plan Chart Review Chart Review: Acceptable Risk for Surgery Consults Requested medical & cardiac Pulmonary ASA ASA1 Proposed Anesthesia Anesthesia Type: General Risk / Benefits Reviewed With: PT / POA / Parent / Guardian, Accepts Plan and Informed Consent Obtained History Surgery Operation Date: 05/07/24 09:40 Proposed Procedures p Drainage of Palatal Cyst - Boo Gross DMD s Extraction of Tooth #10 - Boo Gross DMD Height/Weight Height: 5 ft 8 in Weight: 85.1 kg Allergies Allergy/AdvReac Type Severity Reaction Status Date / Time piperacillin [From Zosyn] Allergy Itching Verified 05/05/24 23:38 tazobactam [From Zosyn] Allergy Itching Verified 05/05/24 23:38 Medications Home Medications Medication Instructions Recorded Confirmed Last Taken benzoyl peroxide 5 % topical 1 applic topical AMHS 05/04/24 05/04/24 Unknown cleanser sulfamethoxazole 800 1 tab PO BID 05/04/24 05/04/24 05/04/24 06:30 mg-trimethoprim 160 mg tablet Active Medications Generic Name Dose Route Start Last Admin Trade Name Freq PRN Reason Stop Dose Admin Acetaminophen 650 mg 05/04/24 22:48 05/06/24 20:17 Acetaminophen 325 Mg Tab PO 06/03/24 22:47 650 mg Q4H PRN Administration pain/fever Enoxaparin Sodium 40 mg 05/04/24 22:48 05/05/24 21:26 Enoxaparin Inj 40 Mg/0.4 Ml Syr SQ 06/03/24 22:47 40 mg PM RENETTA Administration Hydromorphone HCl 0.5 mg 05/04/24 22:48 05/06/24 20:18 Hydromorphone Inj 0.5 Mg/0.5 Ml Syr IV 05/18/24 22:47 0.5 mg Q4H PRN Administration Severe Pain (Scale 7, 8, 9,10) Hydromorphone HCl 2 mg 05/05/24 06:43 05/06/24 22:12 Hydromorphone Hcl 2 Mg Tab PO 05/19/24 06:42 2 mg Q4H PRN Administration Mod-Sev Pain (Scale 4-10) Ertapenem 1,000 mg/ Syringe 10 mls @ 2 mls/min 05/06/24 08:00 05/07/24 07:45 IV 05/13/24 07:59 2 mls/min Q24H RENETTA Administration Vancomycin HCl 1,750 mg/ 535 mls @ 200 mls/hr 05/07/24 07:00 05/07/24 07:45 Sodium Chloride IV 05/14/24 06:59 200 mls/hr Q12H RENETTA Administration NPO Date Last Intake of Fluids: 06/06/24 Time Last Intake of Fluids: 21:00 Date Last Intake of Solids: 06/06/24 Time Last Intake of Solids: 21:00 Exercise / Class Metabolic Activity II 4-5 Yardwork/Stairs/Walk up hill Past Anesthesia History No Hx of Anesthesia Complications and No Family Hx of Anesthesia Complications History of PONV No Hx of PONV and No Hx of Motion Sickness Social History Smoking Status: Current every day smoker Do You Dip or Chew Tobacco: No Hx Alcohol Use: No (not since incarceration) Hx Substance Use: Yes substance use type: former substance user Last Used Substance Other:: 5-6 years ago Review of Systems ROS Unobtainable: All systems reviewed & are unremarkable except as noted in HPI & below Constitutional: as per Subjective / HPI Eyes: as per Subjective / HPI Ear, Nose, Mouth, Throat: as per Subjective / HPI Respiratory: as per Subjective / HPI; no cough, no change in sputum and no hemoptysis Cardiovascular: no chest pain, no chest pain with activity, no dyspnea at rest and no paroxysmal nocturnal dyspnea Musculoskeletal: as per Subjective / HPI Neurologic: no paralysis, no numbness and no radiating pain Physical Exam Vital Signs Last Vital Signs Temp 36.9 C 05/07/24 07:32 Pulse 72 05/07/24 07:32 Resp 16 05/07/24 07:32 BP 153/77 H 05/07/24 07:32 Pulse Ox 96 05/07/24 07:32 O2 Del Method Room Air 05/07/24 07:32 Constitutional no acute distress ENMT Mouth: no dentition abnormality Thyromental Distance: > or= 3.5 Finger Breadths Mallampati Class: II Neck normal visual inspection Respiratory normal respiratory effort; no respiratory distress Auscultation: lungs clear to auscultation bilaterally Cardiovascular Rate/Rhythm: regular rate and regular rhythm Heart Sounds: no murmur Musculoskeletal Spine: normal cervical ROM Psychiatric Orientation: alert and oriented x 3 Lab Results Pre Admission Testing Addendum Laboratory Results 05/07/24 05:28 05/07/24 05:28 Hemoglobin A1c 5.2 (<5.7) 05/05/24 05:34 Hemoglobin A1c Cancelled 05/05/24 05:34 Urine Color Yellow 05/05/24 Unknown Urine Appearance Cloudy (Clear) A 05/05/24 Unknown Urine pH 6.5 (4.5-7.5) 05/05/24 Unknown Ur Specific [place] 1.014 (1.000-1.030) 05/05/24 Unknown Urine Protein Negative (Negative) 05/05/24 Unknown Urine Glucose (UA) Negative (Negative) 05/05/24 Unknown Urine Ketones Negative (Negative) 05/05/24 Unknown Urine Nitrite Negative (Negative) 05/05/24 Unknown Ur Leukocyte Esterase Negative (Negative) 05/05/24 Unknown Urine WBC (Auto) 0-5 /hpf (0-5) 05/05/24 Unknown Urine RBC (Auto) 0-2 /hpf (0-2) 05/05/24 Unknown U Hyaline Cast (Auto) 0-2 /lpf (0-2) 05/05/24 Unknown U Epithel Cells (Auto) 0-2 /hpf (0-2) 05/05/24 Unknown Urine Bacteria (Auto) None Seen (None Seen) 05/05/24 Unknown 05/05/24 Unknown Gram Stain - Final Wrist,Left Aerobic and Anaerobic Culture - Preliminary Staphylococcus aureus 05/04/24 20:02 Aerobic Blood Culture - Preliminary Blood No growth in Aerobic bottle after 48 hours. Anaerobic Blood Culture - Preliminary No growth in Anaerobic bottle after 48 hours. 05/04/24 19:20 Aerobic Blood Culture - Preliminary Blood No growth in Aerobic bottle after 48 hours. Anaerobic Blood Culture - Preliminary No growth in Anaerobic bottle after 48 hours. 05/05/24 Unknown Gram Stain - Final Wrist,Left Aerobic and Anaerobic Culture - Preliminary Staphylococcus species 05/05/24 Unknown Gram Stain - Final Wrist,Left Aerobic and Anaerobic Culture - Preliminary Staphylococcus species 05/05/24 13:25 Gram Stain - Final Arm,Left Electrocardiogram Findings: + NSR @ (1st deg AVB) Chart Review Acceptable Risk for Surgery Consult Requested none Testing Laboratory Results 05/07/24 05:28 05/07/24 05:28 Hemoglobin A1c 5.2 (<5.7) 05/05/24 05:34 Hemoglobin A1c Cancelled 05/05/24 05:34 Urine Color Yellow 05/05/24 Unknown Urine Appearance Cloudy (Clear) A 05/05/24 Unknown Urine pH 6.5 (4.5-7.5) 05/05/24 Unknown Ur Specific [place] 1.014 (1.000-1.030) 05/05/24 Unknown Urine Protein Negative (Negative) 05/05/24 Unknown Urine Glucose (UA) Negative (Negative) 05/05/24 Unknown Urine Ketones Negative (Negative) 05/05/24 Unknown Urine Nitrite Negative (Negative) 05/05/24 Unknown Ur Leukocyte Esterase Negative (Negative) 05/05/24 Unknown Urine WBC (Auto) 0-5 /hpf (0-5) 05/05/24 Unknown Urine RBC (Auto) 0-2 /hpf (0-2) 05/05/24 Unknown U Hyaline Cast (Auto) 0-2 /lpf (0-2) 05/05/24 Unknown U Epithel Cells (Auto) 0-2 /hpf (0-2) 05/05/24 Unknown Urine Bacteria (Auto) None Seen (None Seen) 05/05/24 Unknown 05/05/24 Unknown Gram Stain - Final Wrist,Left Aerobic and Anaerobic Culture - Preliminary Staphylococcus aureus 05/04/24 20:02 Aerobic Blood Culture - Preliminary Blood No growth in Aerobic bottle after 48 hours. Anaerobic Blood Culture - Preliminary No growth in Anaerobic bottle after 48 hours. 05/04/24 19:20 Aerobic Blood Culture - Preliminary Blood No growth in Aerobic bottle after 48 hours. Anaerobic Blood Culture - Preliminary No growth in Anaerobic bottle after 48 hours. 05/05/24 Unknown Gram Stain - Final Wrist,Left Aerobic and Anaerobic Culture - Preliminary Staphylococcus species 05/05/24 Unknown Gram Stain - Final Wrist,Left Aerobic and Anaerobic Culture - Preliminary Staphylococcus species 05/05/24 13:25 Gram Stain - Final Arm,Left Electrocardiogram Findings: + NSR @ (1st deg AVB) Data & Results Home Medications Medication Instructions Recorded Confirmed Type benzoyl peroxide 5 % topical 1 applic topical AMHS 05/04/24 05/04/24 History cleanser sulfamethoxazole 800 1 tab PO BID 05/04/24 05/04/24 History mg-trimethoprim 160 mg tablet ECOG/Weight/Vitals Weight: 85.1 kg Vitals Signs: Vital Signs Temp Pulse Resp BP Pulse Ox O2 Del Method 07/09/24 07:32 36.9 C 72 16 153/77 H 96 Room Air Laboratory Values 05/07/24 05/07/24 05/06/24 Range/Units 07:50 05:28 07:19 WBC 6.72 9.15 (4.8-10.8) K/ul RBC 4.62 L 4.53 L (4.70-6.10) M/uL Hgb 13.7 L 13.5 L (14.0-18.0) g/dl Hct 39.9 L 39.1 L (42.0-52.0) % MCV 86.4 86.3 (80.0-100.0) fL MCH 29.7 29.8 (25.0-34.0) pg MCHC 34.3 34.5 (32.0-36.0) g/dL RDW Std Deviation 39.2 38.9 (36.4-46.3) fL RDW Coeff of Leslye 12.4 12.3 (11.5-14.5) % Plt Count 206 200 (130-400) K/uL MPV 9.0 L 8.9 L (9.4-12.4) fL Immature Gran % (Auto) % Neut % (Auto) % Lymph % (Auto) % Haskell % (Auto) % Eos % (Auto) % Baso % (Auto) % Neut # (Auto) (1.40-6.50) K/uL Lymph # (Auto) (1.20-3.40) K/uL Haskell # (Auto) (0.11-0.59) K/uL Eos # (Auto) (0.00-0.50) K/uL Baso # (Auto) (0.00-0.20) K/uL Immature Gran # (Auto) (0.01-0.20) K/uL ESR (0-15) mm/hr Sodium 139 136 (136-145) mmol/L Potassium 4.2 4.4 (3.5-5.1) mmol/L Chloride 106 104 (98-107) mmol/L Carbon Dioxide 26 28 (21-32) mmol/L Anion Gap 7 4 (3-11) BUN 22 13 (6-23) mg/dl Creatinine 0.96 0.95 (0.6-1.4) mg/dl Est Cr Clr Drug Dosing 114.1 115.3 ml/min Est GFR ( Amer) 118.2 119.7 ml/min Est GFR (Non-Af Amer) 102.0 103.3 ml/min BUN/Creatinine Ratio 22.9 H 13.7 (10-20) Glucose 100 H 93 (70-99(Fasting)) mg/dl Estimat Average Glucose Estimated Ave Glu mmol/L mmol/L Estimated Ave Glu mg/dL mg/dL Hemoglobin A1c Lactate (0.4-2.0) mmol/L Calcium 9.1 8.7 (8.6-10.3) mg/dl Phosphorus 3.6 D 2.6 (2.5-4.9) mg/dl Magnesium 2.1 2.1 (1.7-2.4) mg/dl Iron (35-175) mcg/dl TIBC (250-450) mcg/dl Unsaturated IBC (155-355) mcg/dl Transferrin % Sat (20-50) % Total Bilirubin (0.2-1.0) mg/dl Direct Bilirubin (0-0.2) mg/dl AST (13-39) U/L ALT (7-52) U/L Alkaline Phosphatase (34-104) U/L Troponin I High Sens (0-20) pg/ml C-Reactive Protein (0-0.5) mg/dl Total Protein (6.0-8.3) gm/dl Albumin (3.4-5.0) gm/dl Vitamin B12 (180-914) pg/ml Folate (>5.38) ng/ml Procalcitonin (0-0.5) ng/ml Urine Color Urine Appearance (Clear) Urine pH (4.5-7.5) Ur Specific [place] (1.000-1.030) Urine Protein (Negative) Urine Glucose (UA) (Negative) Urine Ketones (Negative) Urine Blood (Negative) Urine Nitrite (Negative) Urine Bilirubin (Negative) Urine Urobilinogen (Negative) Ur Leukocyte Esterase (Negative) Urine WBC (Auto) (0-5) /hpf Urine RBC (Auto) (0-2) /hpf U Hyaline Cast (Auto) (0-2) /lpf U Epithel Cells (Auto) (0-2) /hpf Urine Bacteria (Auto) (None Seen) Nasal Screen MRSA (PCR) (Negative) Random Vancomycin 5.7 L (10-20) mcg/ml SARS-CoV-2, RNA, NAAT NEGATIVE (NEGATIVE) 05/05/24 05/05/24 05/05/24 Range/Units Unknown 05:34 05:34 WBC 9.88 (4.8-10.8) K/ul RBC 4.25 L (4.70-6.10) M/uL Hgb 12.6 L (14.0-18.0) g/dl Hct 36.6 L (42.0-52.0) % MCV 86.1 (80.0-100.0) fL MCH 29.6 (25.0-34.0) pg MCHC 34.4 (32.0-36.0) g/dL RDW Std Deviation 40.0 (36.4-46.3) fL RDW Coeff of Leslye 12.8 (11.5-14.5) % Plt Count 210 (130-400) K/uL MPV 9.0 L (9.4-12.4) fL Immature Gran % (Auto) 0.6 % Neut % (Auto) 69.4 % Lymph % (Auto) 18.5 % Haskell % (Auto) 9.0 % Eos % (Auto) 2.1 % Baso % (Auto) 0.4 % Neut # (Auto) 6.85 H (1.40-6.50) K/uL Lymph # (Auto) 1.83 (1.20-3.40) K/uL [place] # (Auto) 0.89 H (0.11-0.59) K/uL Eos # (Auto) 0.21 (0.00-0.50) K/uL Baso # (Auto) 0.04 (0.00-0.20) K/uL Immature Gran # (Auto) 0.06 (0.01-0.20) K/uL ESR 24 H (0-15) mm/hr Sodium 135 L (136-145) mmol/L Potassium 4.2 (3.5-5.1) mmol/L Chloride 103 (98-107) mmol/L Carbon Dioxide 26 (21-32) mmol/L Anion Gap 6 (3-11) BUN 12 (6-23) mg/dl Creatinine 1.12 (0.6-1.4) mg/dl Est Cr Clr Drug Dosing 97.8 ml/min Est GFR ( Amer) 98.1 ml/min Est GFR (Non-Af Amer) 84.7 ml/min BUN/Creatinine Ratio 10.7 (10-20) Glucose 100 H (70-99(Fasting)) mg/dl Estimat Average Glucose Cancelled Estimated Ave Glu mmol/L 5.7 mmol/L Estimated Ave Glu mg/dL 103 mg/dL Hemoglobin A1c 5.2 Cancelled Lactate (0.4-2.0) mmol/L Calcium 8.4 L (8.6-10.3) mg/dl Phosphorus (2.5-4.9) mg/dl Magnesium 2.0 (1.7-2.4) mg/dl Iron 21 L (35-175) mcg/dl TIBC 288 (250-450) mcg/dl Unsaturated IBC 267 (155-355) mcg/dl Transferrin % Sat 7 L (20-50) % Total Bilirubin (0.2-1.0) mg/dl Direct Bilirubin (0-0.2) mg/dl AST (13-39) U/L ALT (7-52) U/L Alkaline Phosphatase (34-104) U/L Troponin I High Sens 3.0 (0-20) pg/ml C-Reactive Protein 5.43 H (0-0.5) mg/dl Total Protein (6.0-8.3) gm/dl Albumin (3.4-5.0) gm/dl Vitamin B12 252 (180-914) pg/ml Folate 13.42 (>5.38) ng/ml Procalcitonin (0-0.5) ng/ml Urine Color Yellow Urine Appearance Cloudy A (Clear) Urine pH 6.5 (4.5-7.5) Ur Specific [place] 1.014 (1.000-1.030) Urine Protein Negative (Negative) Urine Glucose (UA) Negative (Negative) Urine Ketones Negative (Negative) Urine Blood Negative (Negative) Urine Nitrite Negative (Negative) Urine Bilirubin Negative (Negative) Urine Urobilinogen Negative (Negative) Ur Leukocyte Esterase Negative (Negative) Urine WBC (Auto) 0-5 (0-5) /hpf Urine RBC (Auto) 0-2 (0-2) /hpf U Hyaline Cast (Auto) 0-2 (0-2) /lpf U Epithel Cells (Auto) 0-2 (0-2) /hpf Urine Bacteria (Auto) None Seen (None Seen) Nasal Screen MRSA (PCR) (Negative) Random Vancomycin (10-20) mcg/ml SARS-CoV-2, RNA, NAAT (NEGATIVE) 05/04/24 05/04/24 Range/Units Unknown 19:20 WBC 12.90 H (4.8-10.8) K/ul RBC 4.65 L (4.70-6.10) M/uL Hgb 13.7 L (14.0-18.0) g/dl Hct 39.8 L (42.0-52.0) % MCV 85.6 (80.0-100.0) fL MCH 29.5 (25.0-34.0) pg MCHC 34.4 (32.0-36.0) g/dL RDW Std Deviation 39.8 (36.4-46.3) fL RDW Coeff of Leslye 12.8 (11.5-14.5) % Plt Count 232 (130-400) K/uL MPV 8.8 L (9.4-12.4) fL Immature Gran % (Auto) 0.5 % Neut % (Auto) 69.9 % Lymph % (Auto) 18.1 % Haskell % (Auto) 9.5 % Eos % (Auto) 1.6 % Baso % (Auto) 0.4 % Neut # (Auto) 9.01 H (1.40-6.50) K/uL Lymph # (Auto) 2.34 (1.20-3.40) K/uL [place] # (Auto) 1.23 H (0.11-0.59) K/uL Eos # (Auto) 0.20 (0.00-0.50) K/uL Baso # (Auto) 0.05 (0.00-0.20) K/uL Immature Gran # (Auto) 0.07 (0.01-0.20) K/uL ESR (0-15) mm/hr Sodium 135 L (136-145) mmol/L Potassium 4.2 (3.5-5.1) mmol/L Chloride 103 (98-107) mmol/L Carbon Dioxide 25 (21-32) mmol/L Anion Gap 7 (3-11) BUN 15 (6-23) mg/dl Creatinine 1.08 (0.6-1.4) mg/dl Est Cr Clr Drug Dosing 101.8 ml/min Est GFR ( Amer) 102.5 ml/min Est GFR (Non-Af Amer) 88.5 ml/min BUN/Creatinine Ratio 13.9 (10-20) Glucose 84 (70-99(Fasting)) mg/dl Estimat Average Glucose Estimated Ave Glu mmol/L mmol/L Estimated Ave Glu mg/dL mg/dL Hemoglobin A1c Lactate 0.6 (0.4-2.0) mmol/L Calcium 9.6 (8.6-10.3) mg/dl Phosphorus (2.5-4.9) mg/dl Magnesium 2.1 (1.7-2.4) mg/dl Iron (35-175) mcg/dl TIBC (250-450) mcg/dl Unsaturated IBC (155-355) mcg/dl Transferrin % Sat (20-50) % Total Bilirubin 1.3 H (0.2-1.0) mg/dl Direct Bilirubin 0.2 (0-0.2) mg/dl AST 21 (13-39) U/L ALT 22 (7-52) U/L Alkaline Phosphatase 63 (34-104) U/L Troponin I High Sens 2.4 (0-20) pg/ml C-Reactive Protein (0-0.5) mg/dl Total Protein 7.6 (6.0-8.3) gm/dl Albumin 4.6 (3.4-5.0) gm/dl Vitamin B12 (180-914) pg/ml Folate (>5.38) ng/ml Procalcitonin < 0.02 (0-0.5) ng/ml Urine Color Urine Appearance (Clear) Urine pH (4.5-7.5) Ur Specific [place] (1.000-1.030) Urine Protein (Negative) Urine Glucose (UA) (Negative) Urine Ketones (Negative) Urine Blood (Negative) Urine Nitrite (Negative) Urine Bilirubin (Negative) Urine Urobilinogen (Negative) Ur Leukocyte Esterase (Negative) Urine WBC (Auto) (0-5) /hpf Urine RBC (Auto) (0-2) /hpf U Hyaline Cast (Auto) (0-2) /lpf U Epithel Cells (Auto) (0-2) /hpf Urine Bacteria (Auto) (None Seen) Nasal Screen MRSA (PCR) Positive A (Negative) Random Vancomycin (10-20) mcg/ml SARS-CoV-2, RNA, NAAT (NEGATIVE) Day of Procedure Evaluation. Date of Surgery May 07, 2024 Height/Weight Height: 5 ft 8 in Weight: 85.1 kg Vital Signs Last Vital Signs Temp 36.9 C 05/07/24 07:32 Pulse 72 05/07/24 07:32 Resp 16 05/07/24 07:32 BP 153/77 H 05/07/24 07:32 Pulse Ox 96 05/07/24 07:32 O2 Del Method Room Air 05/07/24 07:32 Allergies Allergy/AdvReac Type Severity Reaction Status Date / Time piperacillin [From Zosyn] Allergy Itching Verified 05/05/24 23:38 tazobactam [From Zosyn] Allergy Itching Verified 05/05/24 23:38 Medications Home Medications Medication Instructions Recorded Confirmed Last Taken benzoyl peroxide 5 % topical 1 applic topical AMHS 05/04/24 05/04/24 Unknown cleanser sulfamethoxazole 800 1 tab PO BID 05/04/24 05/04/24 05/04/24 06:30 mg-trimethoprim 160 mg tablet Active Medications Generic Name Dose Route Start Last Admin Trade Name Freq PRN Reason Stop Dose Admin Acetaminophen 650 mg 05/04/24 22:48 05/06/24 20:17 Acetaminophen 325 Mg Tab PO 06/03/24 22:47 650 mg Q4H PRN Administration pain/fever Enoxaparin Sodium 40 mg 05/04/24 22:48 05/05/24 21:26 Enoxaparin Inj 40 Mg/0.4 Ml Syr SQ 06/03/24 22:47 40 mg PM RENETTA Administration Hydromorphone HCl 0.5 mg 05/04/24 22:48 05/06/24 20:18 Hydromorphone Inj 0.5 Mg/0.5 Ml Syr IV 05/18/24 22:47 0.5 mg Q4H PRN Administration Severe Pain (Scale 7, 8, 9,10) Hydromorphone HCl 2 mg 05/05/24 06:43 05/06/24 22:12 Hydromorphone Hcl 2 Mg Tab PO 05/19/24 06:42 2 mg Q4H PRN Administration Mod-Sev Pain (Scale 4-10) Ertapenem 1,000 mg/ Syringe 10 mls @ 2 mls/min 05/06/24 08:00 05/07/24 07:45 IV 05/13/24 07:59 2 mls/min Q24H RENETTA Administration Vancomycin HCl 1,750 mg/ 535 mls @ 200 mls/hr 05/07/24 07:00 05/07/24 07:45 Sodium Chloride IV 05/14/24 06:59 200 mls/hr Q12H RENETTA Administration Past Anesthesia History No Hx of Anesthesia Complications and No Family Hx of Anesthesia Complications History of PONV No Hx of PONV and No Hx of Motion Sickness NPO Date Last Intake of Fluids: 06/06/24 Time Last Intake of Fluids: 21:00 Date Last Intake of Solids: 06/06/24 Time Last Intake of Solids: 21:00 Home Medications Home Medications Medication Instructions Recorded Confirmed Last Taken benzoyl peroxide 5 % topical 1 applic topical AMHS 05/04/24 05/04/24 Unknown cleanser sulfamethoxazole 800 1 tab PO BID 05/04/24 05/04/24 05/04/24 06:30 mg-trimethoprim 160 mg tablet Active Medications Generic Name Dose Route Start Last Admin Trade Name Freq PRN Reason Stop Dose Admin Acetaminophen 650 mg 05/04/24 22:48 05/06/24 20:17 Acetaminophen 325 Mg Tab PO 06/03/24 22:47 650 mg Q4H PRN Administration pain/fever Enoxaparin Sodium 40 mg 05/04/24 22:48 05/05/24 21:26 Enoxaparin Inj 40 Mg/0.4 Ml Syr SQ 06/03/24 22:47 40 mg PM RENETTA Administration Hydromorphone HCl 0.5 mg 05/04/24 22:48 05/06/24 20:18 Hydromorphone Inj 0.5 Mg/0.5 Ml Syr IV 05/18/24 22:47 0.5 mg Q4H PRN Administration Severe Pain (Scale 7, 8, 9,10) Hydromorphone HCl 2 mg 05/05/24 06:43 05/06/24 22:12 Hydromorphone Hcl 2 Mg Tab PO 07/21/24 06:42 2 mg Q4H PRN Administration Mod-Sev Pain (Scale 4-10) Ertapenem 1,000 mg/ Syringe 10 mls @ 2 mls/min 05/06/24 08:00 05/07/24 07:45 IV 05/13/24 07:59 2 mls/min Q24H RENETTA Administration Vancomycin HCl 1,750 mg/ 535 mls @ 200 mls/hr 05/07/24 07:00 05/07/24 07:45 Sodium Chloride IV 05/14/24 06:59 200 mls/hr Q12H RENETTA Administration Exercise / Class Metabolic Activity Metabolic Activity: II 4-5 Yardwork/Stairs/Walk up hill Physical Exam Constitutional: no acute distress Mouth: no dentition abnormality Thyromental Distance: > or= 3.5 Finger Breadths Mallampati Class: II Neck: + visual inspection normal Respiratory: + respiratory effort normal and + clear to auscultation bilaterally; no respiratory distress Cardiovascular: + regular rate and + regular rhythm; no murmur Musculoskeletal: no limited cervical ROM Psychiatric: + alert and + oriented x 3 ASA ASA1 Proposed Anesthesia Proposed Anesthesia: General Risk / Benefits Reviewed With: PT / POA / Parent / Guardian, Accepts Plan and Informed Consent Obtained Addendum May 07, 2024 09:17
[2024-05-07] MEDS ORDERED: HYDROmorphone INJ 2 MG/ML SYR/VIAL IV PRN (09:44)
[2024-05-07] MEDS ORDERED: ATROPINE SULFATE 0.1 MG/ML 10ML SYR IV PRN ×2 (09:44→11:51)
[2024-05-07] MEDS ORDERED: ONDANSETRON INJ 2 MG/ML 2 ML VIAL IV PRN ×2 (09:44→11:51)
[2024-05-07] MEDS ORDERED: ePHEDrine sulfate 50 MG/ML AMP IV PRN ×2 (09:44→11:51)
--- NOTE | 2024-05-07 09:52 | History & Physical Bridge Note ---
Date of Service May 07, 2024 History & Physical Bridge Note I have examined the patient, reviewed the History & Physical and in the interval since the performance of the History & Physical I have noted the following changes of clinical significance: no changes noted. OK for the oral surgery procedure today
[2024-05-07] MEDS ORDERED: SUGAMMADEX SODIUM 200 MG/2 ML VIAL IV ONE (10:38)
[2024-05-07] MEDS: CHLORHEXIDINE GLUCONATE 0.12% 480 ML MT ONE (10:45)
[2024-05-07] MEDS: BUPIVACAINE/EPINEPHRINE 0.5% 1:200,000 1.8 ML CARP ONE (10:46)
--- NOTE | 2024-05-07 11:34 | Operative Report ---
PG Post Operative Report Pre & Post Diagnosis Operation Date: 05/07/24 09:40 Pre-Op Diagnosis: Cutaneous abscess of left wrist, cutaneous abscess to the left arm, Cystic lesion of maxilla, Abscess of pulp of tooth Post-Op Diagnosis: Cutaneous abscess of left wrist, cutaneous abscess to the left arm cystic lesion of maxilla, Abscess of pulp of tooth I identified the patient and participated in the time-out.: Yes Procedure Operation Date: 05/07/24 09:40 Actual Procedures p Drainage of Palatal Cyst, Extraction of Tooth #10(Not Applicable) - Boo Gross, DMD s Irrigation and debridement of left wrist and arm abscess (Left) - Burak Menon MD Surgeon Burak Menon MD Warp Changer Popeye Costello PA-C Estimated Blood Loss 10 Findings Consistent with Post-Op Diagnosis Operative findings revealed abscesses and phlegmon's of the left wrist as well as the left arm Specimens Cultures were sent from the left wrist abscess as well as the left arm abscess Description of Procedure The patient was taken to the op room identified placed on the operating table in supine position. The initial procedure was done by Dr. Gross on his oral cavity. We then came in as an orthopedic team and did the irrigation debridement of the left wrist and the left arm. A left upper extremity tourniquet was placed. The left arm was prepped with Hibiclens and then prepped and draped in usual sterile fashion. The left arm was elevated exsanguinated with use of an Esmarch and a turn was placed at 250 mmHg. Attention was first drawn to the wrist. A longitudinal incision was made directly over the abscess area. We did excise some of the phlegmon tissue is much as possible. The dissection was carried through s ubcutaneous tissues. This is all in the subcutaneous tissues and did not involve the tendons. I debrided this with use of a rongeur and then irrigated extensively. Attention drawn the arm. A transverse incision was made over the distal arm abscess. This was much tower cleaner. We excised the phlegmon component. We did take cultures of both areas and sent this for stat Gram stain aerobic and anaerobic culture. I irrigated both wounds extensively. The arm wound was closed with a 3-0 nylon suture loosely. We have packed the open wound distally. I did inject locally with 10 cc of half percent Marcaine with epinephrine. A dressing composed of 4 x 4's, Xeroform, ABD pad and sterile cast padding and an Brien bandage was applied. The patient then brought out of general anesthesia and transferred to the recovery room in stable condition. Patient tolerated the procedure well and there were no complications. Popeye Costello, my physician school office assistant, was present for this portion of the procedure. His assistance was required for proper patient positioning, prepping and draping, surgical exposure, retraction, perform the technical details of the operation, irrigating the wound and placing this bandage. I attest to the content of the Intraoperative Record and any orders documented therein. Any exceptions are noted below.
[2024-05-07] MEDS: HYDROmorphone INJ 2 MG/ML SYR/VIAL IV PRN ×2 (11:55→12:25)
[2024-05-07] MEDS: ACETAMINOPHEN 1000 MG/100 ML IV IV ONE (12:32)
--- NOTE | 2024-05-07 13:06 | Anesthesiology Progress Note ---
Date of Service May 07, 2024 Anesthesia Post Procedure Vital Signs Vital Signs: Temp Pulse Pulse Resp BP Pulse Ox O2 Del Method 05/07/24 12:55 36.5 C 55 L 17 143/74 H 94 Room Air 05/07/24 12:45 36.5 C 82 25 H 145/79 H 94 Room Air 05/07/24 12:35 36.5 C 85 21 138/74 93 Oxymask 05/07/24 12:25 85 17 141/89 H 92 Oxymask 05/07/24 12:15 84 27 H 145/85 H 91 Oxymask 05/07/24 12:05 80 23 152/98 H 94 Oxymask 05/07/24 11:55 85 85 H 155/98 H 98 Oxymask 05/07/24 11:45 85 17 162/93 H 91 Oxymask 05/07/24 11:36 36.0 C L 87 12 138/95 96 Oxymask 05/07/24 09:19 36.6 C 66 18 127/84 95 Room Air 05/07/24 07:32 36.9 C 72 16 153/77 H 96 Room Air 05/06/24 20:20 36.7 C 75 18 135/80 96 Room Air 05/06/24 15:39 36.7 C 76 18 142/88 H 96 Room Air O2 Flow Rate 05/07/24 12:55 05/07/24 12:45 05/07/24 12:35 2 05/07/24 12:25 2 05/07/24 12:15 2 05/07/24 12:05 3 05/07/24 11:55 3 05/07/24 11:45 3 05/07/24 11:36 5 05/07/24 09:19 05/07/24 07:32 05/06/24 20:20 05/06/24 15:39 Pain Intensity Left Arm: Pain Intensity: 3 Transfer of Care Handoff Completed per policy Notes Mental Status: alert / awake / arousable and participated in evaluation Nausea / Vomiting: adequately controlled Pain: adequately controlled Airway Patency, RR, SpO2: stable & adequate BP & HR: stable & adequate Hydration State: stable & adequate Anesthetic Complications: no major complications apparent and Pt Satisfied with anesthetic care
[2024-05-07] MEDS: ACETAMINOPHEN 1,000 MG/100 ML VIAL IV STA (13:33)
[2024-05-07] MEDS: HYDROmorphone INJ 2 MG/ML SYR/VIAL ONE (13:35)
[2024-05-07] MEDS: BUPIVACAINE/EPINEPHRINE 0.5% MPF 1:200,000 10 ML VIAL ONE (13:35)
[2024-05-07] MEDS: ONDANSETRON INJ 2 MG/ML 2 ML VIAL IV PRN (14:48)
[2024-05-07] MEDS: FERROUS SULFATE 325 MG TAB PO SCH (21:01)
[2024-05-07] MEDS: DOCUSATE SODIUM 100 MG CAP PO SCH (21:02)
[2024-05-08] MEDS: FIRST - Mouthwash BLM 5 ML UDP PO ONE (05:24)
--- NOTE | 2024-05-08 07:14 | Orthopedic Progress Note ---
Date of Service May 08, 2024 Assessment & Plan (1) Cutaneous abscess of left wrist: He was seen and examined by Dr. Menon. He may always have some numbness in the dorsal thumb due to this infection. Cultures pending. Will consult wound care nurse today for dressing changes, ideally wound vac to the left wrist if able. Otherwise, recommend wet to dry dressing changes twice/daily. (2) Abscess of left arm: Subjective . 33 year old patient POD #1 from I and D of left wrist and upper arm infection. Doing fairly well today. Complains mostly of some oral pain from that procedure. He has some numbness of the dorsal thumb. Review of Systems All systems reviewed & are unremarkable except as noted in HPI & below. Physical Exam .alert and oriented. NAD LUE: dressings clean, dry, intact. Able to move thumb and fingers appropriately. Diminished sensation on dorsal aspect of thumb. Results & Data Results & Data Laboratory Results . Diagnostic Findings . PG Care Time/CCT Total # of Minutes Spent Total Time Spent with Patient: Total time spent is greater than 50% in coordination of care (as documented) at patient's floor/unit and/or counseling patient: Coding Level of Care Code 76448 Post Operative Follow-Up Diagnoses Cutaneous abscess of left wrist L02.414 Abscess of left arm L02.414
[2024-05-08] MEDS: diphenhydrAMINE Capsule 25 MG CAP PO ONE (07:59)
[2024-05-08 09:33] LABS: Basophils # (auto) 0.04 K/uL (0.00-0.20); Basophils % (auto) 0.2 %; Hematocrit (blood only) 38.4 % (42.0-52.0); Hemoglobin 13.4 g/dl (14.0-18.0); Immature Granulocytes # (auto) 0.19 K/uL (0.01-0.20); Immature Granulocytes % (auto) 1.1 %; Lymphocytes # (auto) 1.73 K/uL (1.20-3.40); Lymphocytes % (auto) 10.1 %; Mean Corpuscular Hemoglobin 29.4 pg (25.0-34.0); Mean Corpuscular Hgb Conc 34.9 g/dL (32.0-36.0); Mean Corpuscular Volume 84.2 fL (80.0-100.0); Monocytes # (auto) 0.74 K/uL (0.11-0.59); Monocytes % (auto) 4.3 %; Neutrophils # (auto) 14.41 K/uL (1.40-6.50); Neutrophils % (auto) 84.3 %; Platelet Count 234 K/uL (130-400); RDW Coefficient of Variation 12.4 % (11.5-14.5); RDW Standard Deviation 37.6 fL (36.4-46.3); Red Blood Count 4.56 M/uL (4.70-6.10); White Blood Count 17.11 K/ul (4.8-10.8)
[2024-05-08 09:48] LABS: Albumin Globulin Ratio 1.3 (0.9-2); Albumin Level 4.1 gm/dl (3.4-5.0); BUN Creatinine Ratio 16.3 (10-20); Bilirubin,Total 0.4 mg/dl (0.2-1.0); Calcium 9.3 mg/dl (8.6-10.3); Creatinine Clr Calc Pharmacy 127.3 ml/min; Est GFR (African American) 130.2 ml/min; Est GFR (Non-African American) 112.3 ml/min; Globulin 3.1 gm/dl (2.5-4.0); Potassium 4.2 mmol/L (3.5-5.1); Total Protein 7.2 gm/dl (6.0-8.3)
[2024-05-08] MEDS ORDERED: VANCOMYCIN CONSULT ACTIVE PRN (10:04)
[2024-05-08] MEDS ORDERED: VANCOMYCIN HCL 1,250 MG in SODIUM CHLORIDE 0.9% 500 ML IV SCH (10:15)
--- NOTE | 2024-05-08 10:57 | Pharmacy Report ---
Pharmacy PK ABX Note - Date of Service May 08, 2024 - Assessment and Plan Assessment * Mr Mason is a 33 year old incarcerated M receiving vancomycin, ertapenem for treatment of L arm cellulitis and tooth abscess. Vancomycin was originally discontinued yesterday, but resumed today 2nd WBC bump. Patient missed one dose of vancomycin yesterday evening, otherwise therapy was uninterrupted. * Pt has no significant PMH, with the exception of some wounds for the past few months. It sounds like they started in his armpits and now involve his LUE. He has received abx recently, including doxycycline and Bactrim, which have not been effective. * Pertinent microbiologic data includes * 05/04 Blood cultures x2 - NGTD x2 * 05/05 L arm - NGTD * 05/05 L wrist x3 - MSSA x3 * 05/07 L arm and wrist (intraoperative I&D) - MSSA x2 * ID has been consulted and weighted in 05/06. D/w Dr. Chapman today, who noted she plans to discuss w them. Plan Vancomycin * Resume 1750 mg IV every 12 hours * Regimen is predicted to achieve target AUC/STEPHANI of 400-600 mg/L.hr * Will check a vancomycin level in 2 days Pharmacy will continue to follow and will adjust dose/frequency as necessary. Thank you. Pharmacy has transitioned to AUC monitoring for vancomycin. AUC/STEPHANI is the preferred PK/PD target and is associated with decreased risk of nephrotoxicity compared to traditional trough targets.
[2024-05-08] MEDS: VANCOMYCIN HCL 1,750 MG in SODIUM CHLORIDE 0.9% 500 ML IV SCH (11:06)
--- NOTE | 2024-05-08 12:28 | Hospitalist Progress Note ---
Date of Service May 08, 2024 Assessment & Plan (1) Dental fistula: (2) Cystic lesion of maxilla determined by X-ray: (3) Abscess of left arm: (4) Cutaneous abscess of left wrist: Plan 33 yo M with no significant past medical history presents with infection of the left upper extremity. Patient states he had wounds in both armpits a few months ago and was treated with antibiotics (these are now healed). Now is having wounds in his left upper extremity for last couple of months on and off. The wounds are located just above the wrist, multiple erythematous nodules seen. Streak like lymphatic spread seen above the lesions. Also pimple-like lesion seen on the right arm above the elbow region. Patient states he was treated with doxycycline and Bactrim but is not helping. Denies any fevers. Has pain in the lesions area. Left upper extremity cellulitis maculopapular lesions seen above right wrist with lymphatic streaks seen and also a lesion in the left arm above elbow States having these lesions last couple of months on and off. And was treated with Bactrim and doxycycline per patient. Also had similar lesions on both his axillary region few months back and was treated- these are now healed. MRSA screen positive ER started on IV Vanco. IV Zosyn added on admission, then developed itching and switched overnight to ertapenem wound cultx growing staph Blood Cx x2 sets NGTD wound care consulted Orthopedics consulted - seen by Dr. Menon -s/p surgical irrigation debridement of this area on 05/07 -wound cultures from I &D pending ID consulted for further recommendations. Recommended the following - Stopped vancomycin iv and ertapenem - Start cefazolin 2 gm iv q8 hours for suspected Staphylococcus and Streptococcus infection. Cefazolin is safe to use for any patient with history of allergy to penicillin as it does not share the same R1 side change. However, the patient states that he tolerated amoxicillin without any reaction in the recent past: I doubt the patient has PCN or zosyn allergy. - I recommend I&D for the two sites as needed: the patient needs to be evaluate if abscess is forming for the lesion in L biceps area. - If the patient continues to do well on cefazolin, may discharge the patient on cefadroxil 1 gm po 12 hours or keflex 500 mg po q6 hours to complete total 14 days of abx therapy - I recommend dermatology evaluation for the nodules. I am convinced that the patient has cellulitis but not sure if the cellulitis is the primary condition. The infection he has now may be an superimposed infection. - Please, contact ID if he does not continue to improve on cefazolin. Continued ertapenem for anaerobic coverage for tooth abscess as well (see below). Vancomycin discontinued. Will discuss with ID once more 05/08- WBC significantly elevated, vancomycin put back on postop Outpt Dermatology followup Palatal cyst/ abscess, tooth infection Face CT concerning for dental abscess Dental surgery - Dr. Gross consulted (and discussed with at the bedside) -s/p #10 tooth extraction and palatal cyst/ abscess drainage on 05/07 concurrently with above procedure Appreciate OMFS recs Continue with Ertapenem for anaerobic coverage, vancomycin discontinued. Will discuss with ID once more Iron Deficiency anemia Hgb in 13 range Iron levels low Started on po iron supplements with docusate for constipation Chest tightness - resolved Cardiomegaly says from anxiety two sets of troponin negative ekg unremarkable Consider echo, chest xray noting cardiomegaly will monitor. Diet: regular DVT prophylaxis - Lovenox resumed Dispo: return to [facility] once medically stable Admission and Anticipated Discharge Date Admission Date: May 04, 2024 Subjective Pt was seen laying in bed. Concerned about possible new lesions popping up on his left arm. Also had difficulty sleeping. Review of Systems Review of Systems: All systems reviewed & are unremarkable except as noted in Subjective Physical Exam Physical Exam: General: Alert, oriented. No acute distress Skin: wound vac over left forearm wound, red dry scaly papule near left wrist Psych: Appropriate mood and affect Neuro: No gross deficits HEENT: NC/AT Chest: Nontender to palpation. CV: RRR Resp: Breath sounds clear bilaterally, no increased effort of breathing. Abdomen: Soft, nontender, nondistended Extremities: No edema in lower extremities bilaterally. Results & Data Results & Data Vital Signs (Past 12 Hours) Vital Signs Temp Pulse Resp BP Pulse Ox O2 Del Method 05/08/24 11:44 36.8 C 80 16 125/68 95 Room Air 05/08/24 07:05 36.9 C 72 18 126/75 97 Room Air 05/08/24 03:11 36.4 C L 87 18 154/67 H 97 Room Air
[2024-05-08] MEDS: FIRST - Mouthwash BLM 119 ML PO PRN (12:49)
[2024-05-08] MEDS: KETOROLAC TROMETHAMINE 15 MG/ML VIAL IV ONE (21:13)
[2024-05-08] MEDS ORDERED: DICYCLOMINE HCL 10 MG CAP PO PRN (21:37)
[2024-05-09] MEDS: MELATONIN 3 MG TAB PO PRN (00:31)
--- NOTE | 2024-05-09 08:01 | Orthopedic Progress Note ---
Date of Service May 09, 2024 Assessment & Plan (1) Abscess of left arm: Plan: 33-year-old prisoner postop day 2 from I&D of a left wrist abscess as well as left arm abscess. Both revealed methicillin sensitive staph. Exactly the source is unclear. Indicates his wounds look to be healing up appropriately. No obvious new skeletal or extremity lesions. Plan: Continue antibiotic management. He will continue wound VAC care and need wound care follow-up on the left wrist. Will begin dressing changes on the left arm. No other restrictions (2) Cutaneous abscess of left wrist: Admission and Anticipated Discharge Date Admission Date: May 04, 2024 Subjective 33-year-old presents for postop day 2 from I&D of a left wrist abscess as well as left arm abscess. Both are growing methicillin sensitive staph. He is complaining a little bit of ulnar-sided wrist pain. Mostly complaining of oral pain at this time. The wrist seems to be improving Physical Exam Physical Exam: Physical nation is a pleasant middle-age male. Examination of the left wrist reveals the wound VAC to be in place. The swelling is improved. Minimal tenderness. He does have some scabs elsewhere but no signs of abscess. Examination left arm reveals dressing be intact. Can flex extend his elbow appropriately. He is neurologically intact. Results & Data Vital Signs (Past 12 Hours) Vital Signs Temp Pulse Resp BP Pulse Ox O2 Del Method 05/09/24 07:10 36.8 C 61 20 119/72 97 Room Air 05/08/24 21:22 36.8 C 74 16 144/76 H 96 Room Air Laboratory Results Culture results are showing Staph aureus.
[2024-05-09 08:46] LABS: Albumin Globulin Ratio 1.4 (0.9-2); Albumin Level 3.7 gm/dl (3.4-5.0); BUN Creatinine Ratio 17.3 (10-20); Bilirubin,Total 0.3 mg/dl (0.2-1.0); Calcium 8.6 mg/dl (8.6-10.3); Creatinine Clr Calc Pharmacy 135.2 ml/min; Est GFR (African American) 133.5 ml/min; Est GFR (Non-African American) 115.1 ml/min; Globulin 2.6 gm/dl (2.5-4.0); Potassium 4.1 mmol/L (3.5-5.1); Total Protein 6.3 gm/dl (6.0-8.3)
[2024-05-09 08:48] LABS: Basophils # (auto) 0.05 K/uL (0.00-0.20); Basophils % (auto) 0.4 %; Eosinophils # (auto) 0.15 K/uL (0.00-0.50); Eosinophils % (auto) 1.3 %; Hematocrit (blood only) 37.8 % (42.0-52.0); Hemoglobin 12.8 g/dl (14.0-18.0); Immature Granulocytes # (auto) 0.59 K/uL (0.01-0.20); Immature Granulocytes % (auto) 4.9 %; Lymphocytes # (auto) 3.43 K/uL (1.20-3.40); Lymphocytes % (auto) 28.8 %; Mean Corpuscular Hgb Conc 33.9 g/dL (32.0-36.0); Mean Corpuscular Volume 85.5 fL (80.0-100.0); Mean Platelet Volume 8.9 fL (9.4-12.4); Monocytes # (auto) 0.97 K/uL (0.11-0.59); Monocytes % (auto) 8.1 %; Neutrophils # (auto) 6.74 K/uL (1.40-6.50); Neutrophils % (auto) 56.5 %; Platelet Count 208 K/uL (130-400); RDW Coefficient of Variation 12.5 % (11.5-14.5); RDW Standard Deviation 38.8 fL (36.4-46.3); Red Blood Count 4.42 M/uL (4.70-6.10); White Blood Count 11.93 K/ul (4.8-10.8)
[2024-05-09] MEDS: KETOROLAC TROMETHAMINE 15 MG/ML VIAL IV PRN (09:17)
--- NOTE | 2024-05-09 12:40 | Oral/Maxillofacial Progress Nt ---
Date of Service May 09, 2024 Assessment & Plan Admission and Anticipated Discharge Date Admission Date: May 04, 2024 Subjective Day 2 of excision of maxillary/palate cystic lesion and ext # 10 Tissue is healthy and pink, swelling as expected at day [address], good oral care. 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 I told Trev that usually the 2-3 and third days are the worst for swelling and pain and that he should see a big improvement over the next 48 hours. Results & Data Vital Signs (Past 12 Hours) Vital Signs Temp Pulse Resp BP Pulse Ox O2 Del Method 05/09/24 07:10 36.8 C 61 20 119/72 97 Room Air PG Care Time/CCT Total # of Minutes Spent Total Time Spent with Patient: Total time spent is greater than 50% in coordination of care (as documented) at patient's floor/unit and/or counseling patient: Coding Level of Care Code None
--- NOTE | 2024-05-09 14:04 | Hospitalist Progress Note ---
Date of Service May 09, 2024 Assessment & Plan (1) Dental fistula: (2) Cystic lesion of maxilla determined by X-ray: (3) Abscess of left arm: (4) Cutaneous abscess of left wrist: Plan 33 yo M with no significant past medical history presents with infection of the left upper extremity. Patient states he had wounds in both armpits a few months ago and was treated with antibiotics (these are now healed). Now is having wounds in his left upper extremity for last couple of months on and off. The wounds are located just above the wrist, multiple erythematous nodules seen. Streak like lymphatic spread seen above the lesions. Also pimple-like lesion seen on the right arm above the elbow region. Patient states he was treated with doxycycline and Bactrim but is not helping. Denies any fevers. Has pain in the lesions area. Left upper extremity cellulitis maculopapular lesions seen above right wrist with lymphatic streaks seen and also a lesion in the left arm above elbow States having these lesions last couple of months on and off. And was treated with Bactrim and doxycycline per patient. Also had similar lesions on both his axillary region few months back and was treated- these are now healed. MRSA screen positive ER started on IV Vanco. IV Zosyn added on admission, then developed itching and switched overnight to ertapenem wound cultx growing staph Blood Cx x2 sets NGTD wound care consulted Orthopedics consulted - seen by Dr. Menon -s/p surgical irrigation debridement of this area on 05/07 -wound cultures from I &D pending ID consulted for further recommendations. Recommended the following - Stopped vancomycin iv and ertapenem - Start cefazolin 2 gm iv q8 hours for suspected Staphylococcus and Streptococcus infection. Cefazolin is safe to use for any patient with history of allergy to penicillin as it does not share the same R1 side change. However, the patient states that he tolerated amoxicillin without any reaction in the recent past: I doubt the patient has PCN or zosyn allergy. - I recommend I&D for the two sites as needed: the patient needs to be evaluate if abscess is forming for the lesion in L biceps area. - If the patient continues to do well on cefazolin, may discharge the patient on cefadroxil 1 gm po 12 hours or keflex 500 mg po q6 hours to complete total 14 days of abx therapy - I recommend dermatology evaluation for the nodules. I am convinced that the patient has cellulitis but not sure if the cellulitis is the primary condition. The infection he has now may be an superimposed infection. - Please, contact ID if he does not continue to improve on cefazolin. Continued ertapenem for anaerobic coverage for tooth abscess as well (see below). Vancomycin discontinued. Will discuss with ID once more 05/08- WBC significantly elevated, vancomycin put back on postop 05/09- improved WBC with vancomycin now back on, re-consulted ID awaiting recs Outpt Dermatology followup Palatal cyst/ abscess, tooth infection Face CT concerning for dental abscess Dental surgery - Dr. Gross consulted (and discussed with at the bedside) -s/p #10 tooth extraction and palatal cyst/ abscess drainage on 05/07 concurrently with above procedure Appreciate OMFS recs Continue with Ertapenem for anaerobic coverage, vancomycin discontinued. Will discuss with ID once more Iron Deficiency anemia Hgb in 13 range Iron levels low Started on po iron supplements with docusate for constipation Chest tightness - resolved Cardiomegaly says from anxiety two sets of troponin negative ekg unremarkable Consider echo, chest xray noting cardiomegaly will monitor. Diet: regular DVT prophylaxis - Lovenox resumed Dispo: return to [facility] once medically stable Admission and Anticipated Discharge Date Admission Date: May 04, 2024 Subjective States that he is having pain in his mouth. Feels like the dilaudid is not helping but the toradol is. Ws evaluated by both ortho and OMFS today. Review of Systems Review of Systems: All systems reviewed & are unremarkable except as noted in Subjective Physical Exam Physical Exam: General: Alert, oriented. No acute distress Skin: wound vac over left forearm wound, red dry scaly papule near left wrist Psych: Appropriate mood and affect Neuro: No gross deficits HEENT: NC/AT Chest: Nontender to palpation. CV: RRR Resp: Breath sounds clear bilaterally, no increased effort of breathing. Abdomen: Soft, nontender, nondistended Extremities: No edema in lower extremities bilaterally. Results & Data Results & Data Vital Signs (Past 12 Hours) Vital Signs Temp Pulse Resp BP Pulse Ox O2 Del Method 05/09/24 07:10 36.8 C 61 20 119/72 97 Room Air
[2024-05-09] MEDS: KETOROLAC 30 MG/ML VIAL IV PRN (14:28)
[2024-05-10] MEDS: KETOROLAC TROMETHAMINE 15 MG/ML VIAL IV ONE (02:18)
[2024-05-10] MEDS ORDERED: MELATONIN 3 MG TAB PO PRN (02:38)
[2024-05-10] MEDS: LORATADINE 10 MG TAB PO ONE (03:00)
[2024-05-10] MEDS: MELATONIN 3 MG TAB PO STA (03:01)
[2024-05-10] MEDS ORDERED: diphenhydrAMINE Capsule 25 MG CAP PO PRN (06:41)
--- NOTE | 2024-05-10 07:12 | Orthopedic Progress Note ---
Date of Service May 10, 2024 Assessment & Plan (1) Abscess of left arm: Plan: 33-year-old male postop day 3 from I&D of a left arm and wrist abscesses. Orthopedically he is doing well. He is concerned about some lesions on his face which he cannot really appreciate much. In any case and will continue wound VAC management of the wrist. The routine wound care to the arm. Antibiotics as per the primary care service. He will need follow-up and suture removal in about 2 weeks. He likely need follow-up in the wound clinic for management of the wound VAC. Any orthopedic questions can be directly [phone] (2) Cutaneous abscess of left wrist: Admission and Anticipated Discharge Date Admission Date: May 04, 2024 Subjective 33-year-old male presents postop day 3 from I&D of a left arm and left wrist abscesses. These areas seem to doing better. He is concerned about some areas on his face. No other real complaints. Physical Exam Physical Exam: Physical examination of the left wrist reveals the wound VAC to be in place. The swelling and redness is markedly improved. He can flex extend his wrist appropriately. He is neurologically intact examination left arm reveals incision healed nicely. Swelling is improved. He is got elbow motion without much pain. Results & Data Vital Signs (Past 12 Hours) Vital Signs Temp Pulse Resp BP Pulse Ox O2 Del Method 05/09/24 20:00 37.0 C 64 16 146/73 H 96 Room Air
[2024-05-10] MEDS: VANCOMYCIN LEVEL ONE (07:48)
[2024-05-10] MEDS: diphenhydrAMINE Capsule 25 MG CAP PO PRN (07:54)
[2024-05-10 08:00] LABS: Albumin Globulin Ratio 1.4 (0.9-2); Albumin Level 3.6 gm/dl (3.4-5.0); BUN Creatinine Ratio 22.1 (10-20); Bilirubin,Total 0.3 mg/dl (0.2-1.0); Calcium 8.6 mg/dl (8.6-10.3); Creatinine Clr Calc Pharmacy 142.2 ml/min; Est GFR (African American) 136.3 ml/min; Est GFR (Non-African American) 117.6 ml/min; Globulin 2.6 gm/dl (2.5-4.0); Total Protein 6.2 gm/dl (6.0-8.3)
[2024-05-10 09:05] LABS: Hematocrit (blood only) 38.9 % (42.0-52.0); Hemoglobin 13.2 g/dl (14.0-18.0); Mean Corpuscular Hemoglobin 28.9 pg (25.0-34.0); Mean Corpuscular Hgb Conc 33.9 g/dL (32.0-36.0); Mean Corpuscular Volume 85.3 fL (80.0-100.0); Mean Platelet Volume 8.9 fL (9.4-12.4); Platelet Count 215 K/uL (130-400); RDW Coefficient of Variation 12.7 % (11.5-14.5); RDW Standard Deviation 38.9 fL (36.4-46.3); Red Blood Count 4.56 M/uL (4.70-6.10); White Blood Count 11.05 K/ul (4.8-10.8)
[2024-05-10 09:15] LABS: ALC (manual) 4.09 K/uL (1.2-3.4); Eosinophils # (manual) 0.44 K/uL (0-0.50); Eosinophils % (manual) 4 %; Lymphocytes # (manual) 4.09 K/uL (1.2-3.4); Lymphocytes % (manual) 37 %; Metamyelocytes # (manual) 0.33 K/uL (0-0); Metamyelocytes % (manual) 3 %; Monocytes # (manual) 0.11 K/uL (0.11-0.59); Monocytes % (manual) 1 %; Myelocytes # (manual) 0.77 K/uL (0-0); Myelocytes % (manual) 7 %; Neutrophils % (manual) 48 %; Polychromasia 1+
--- NOTE | 2024-05-10 09:37 | Pharmacy Report ---
Pharmacy PK ABX Note - Date of Service May 10, 2024 - Assessment and Plan Assessment * Mr Mason is a 33 year old incarcerated M receiving vancomycin, ertapenem for treatment of L arm cellulitis and tooth abscess. Vancomycin was originally discontinued 05/07, but resumed 05/08 2nd WBC bump. Patient missed one dose of vancomycin 05/07 evening, otherwise therapy was uninterrupted. * Pt has no significant PMH, with the exception of some wounds for the past few months. It sounds like they started in his armpits and now involve his LUE. He has received abx recently, including doxycycline and Bactrim, which have not been effective. * Pertinent microbiologic data includes * 05/04 Blood cultures x2 - NGTD x2 * 05/05 L arm - CoNS * 05/05 L wrist x3 - MSSA x3 * 05/07 L arm and wrist (intraoperative I&D) - MSSA x2 * ID has been consulted and weighted in 05/06. D/w Dr. Chapman again today - ID aware of request to re-asses, but still awaiting ID input * SCr gradually improving Plan Vancomycin * Target AUC/STEPHANI 400-600 mg/L.hr * Level of 8.7 mcg/mL this AM associated with a nearly therapeutic AUC of 398 mg/L.hr. However, will increase dose as SCr has been trending down and level may be slightly subtherapeutic * Increase vancomycin to 1250 mg IV q8h * Will check a vancomycin level 7/15 AM Pharmacy will continue to follow and will adjust dose/frequency as necessary. Thank you. Pharmacy has transitioned to AUC monitoring for vancomycin. AUC/STEPHANI is the preferred PK/PD target and is associated with decreased risk of nephrotoxicity compared to traditional trough targets.
--- NOTE | 2024-05-10 14:42 | Hospitalist Progress Note ---
Date of Service May 10, 2024 Assessment & Plan (1) Dental fistula: (2) Cystic lesion of maxilla determined by X-ray: (3) Abscess of left arm: (4) Cutaneous abscess of left wrist: Plan 33 yo M with no significant past medical history presents with infection of the left upper extremity. Patient states he had wounds in both armpits a few months ago and was treated with antibiotics (these are now healed). Now is having wounds in his left upper extremity for last couple of months on and off. The wounds are located just above the wrist, multiple erythematous nodules seen. Streak like lymphatic spread seen above the lesions. Also pimple-like lesion seen on the right arm above the elbow region. Patient states he was treated with doxycycline and Bactrim but is not helping. Denies any fevers. Has pain in the lesions area. Left upper extremity cellulitis maculopapular lesions seen above right wrist with lymphatic streaks seen and also a lesion in the left arm above elbow States having these lesions last couple of months on and off. And was treated with Bactrim and doxycycline per patient. Also had similar lesions on both his axillary region few months back and was treated- these are now healed. MRSA screen positive ER started on IV Vanco. IV Zosyn added on admission, then developed itching and switched overnight to ertapenem wound cultx growing staph Blood Cx x2 sets NGTD wound care consulted Orthopedics consulted - seen by Dr. Menon -s/p surgical irrigation debridement of this area on 05/07 -wound cultures from I &D pending ID consulted for further recommendations. Recommended the following - Stopped vancomycin iv and ertapenem - Start cefazolin 2 gm iv q8 hours for suspected Staphylococcus and Streptococcus infection. Cefazolin is safe to use for any patient with history of allergy to penicillin as it does not share the same R1 side change. However, the patient states that he tolerated amoxicillin without any reaction in the recent past: I doubt the patient has PCN or zosyn allergy. - I recommend I&D for the two sites as needed: the patient needs to be evaluate if abscess is forming for the lesion in L biceps area. - If the patient continues to do well on cefazolin, may discharge the patient on cefadroxil 1 gm po 12 hours or keflex 500 mg po q6 hours to complete total 14 days of abx therapy - I recommend dermatology evaluation for the nodules. I am convinced that the patient has cellulitis but not sure if the cellulitis is the primary condition. The infection he has now may be an superimposed infection. - Please, contact ID if he does not continue to improve on cefazolin. Continued ertapenem for anaerobic coverage for tooth abscess as well (see below). Vancomycin discontinued. Will discuss with ID once more 05/08- WBC significantly elevated, vancomycin put back on postop 05/09- improved WBC with vancomycin now back on, re-consulted ID awaiting recs 05/10- Case discussed with ID once more, Dr Dyana Kelsey. Recommended the following: addition of Flagyl to IV Cefazolin if concern for anaerobic coverage and "If there is concern for a deeper infection which is reasonable since he needed a wound vac I would get a MRI of his wrist." MRI wrist ordered. Antibiotics changed to IV cefazolin and Flagyl at this time, while waiting on MRI wrist results. Continue vancomycin. Outpt Dermatology followup Palatal cyst/ abscess, tooth infection Face CT concerning for dental abscess Dental surgery - Dr. Gross consulted (and discussed with at the bedside) -s/p #10 tooth extraction and palatal cyst/ abscess drainage on 05/07 concurrently with above procedure Appreciate OMFS recs Continue with Ertapenem for anaerobic coverage, vancomycin discontinued. Will discuss with ID once more 05/10- Case discussed with ID once more, Dr Dyana Kelsey. Recommended the following: addition of Flagyl to IV Cefazolin if concern for anaerobic coverage and "If there is concern for a deeper infection which is reasonable since he needed a wound vac I would get a MRI of his wrist." MRI wrist ordered. Antibiotics changed to IV cefazolin and Flagyl at this time, while waiting on MRI wrist results. Continue vancomycin. Iron Deficiency anemia Hgb in 13 range Iron levels low Started on po iron supplements with docusate for constipation Chest tightness - resolved Cardiomegaly says from anxiety two sets of troponin negative ekg unremarkable Consider echo, chest xray noting cardiomegaly will monitor. Diet: regular DVT prophylaxis - Lovenox resumed Dispo: return to assisted once medically stable Admission and Anticipated Discharge Date Admission Date: May 04, 2024 Subjective pt states he did not sleep well last night so wanted to rest. Denied acute concerns otherwise. Review of Systems Review of Systems: All systems reviewed & are unremarkable except as noted in Subjective Physical Exam Physical Exam: General: Alert, oriented. No acute distress Skin: wound vac over left forearm wound, red dry scaly papule near left wrist Psych: Appropriate mood and affect Neuro: No gross deficits HEENT: NC/AT Chest: Nontender to palpation. CV: RRR Resp: Breath sounds clear bilaterally, no increased effort of breathing. Abdomen: Soft, nontender, nondistended Extremities: No edema in lower extremities bilaterally. Results & Data Results & Data Vital Signs (Past 12 Hours) Vital Signs Temp Pulse Resp BP Pulse Ox O2 Del Method 05/10/24 14:31 36.8 C 71 16 124/75 97 Room Air 05/10/24 07:37 36.6 C 63 16 131/77 96 Room Air
[2024-05-10] MEDS: ceFAZolin 2000MG 2,000 MG/15 ML SYR IV SCH (15:05)
[2024-05-10] MEDS: VANCOMYCIN HCL 1,250 MG in SODIUM CHLORIDE 0.9% 250 ML IV SCH (21:37)
[2024-05-11 07:33] LABS: BUN Creatinine Ratio 19.5 (10-20); Calcium 8.5 mg/dl (8.6-10.3); Creatinine Clr Calc Pharmacy 133.5 ml/min; Est GFR (African American) 132.8 ml/min; Est GFR (Non-African American) 114.6 ml/min; Potassium 4.2 mmol/L (3.5-5.1)
[2024-05-11 07:35] LABS: ALC (manual) 3.22 K/uL (1.2-3.4); ANC (manual) 5.29 K/uL (1.4-6.5); Eosinophils # (manual) 0.57 K/uL (0-0.50); Eosinophils % (manual) 5 %; Hematocrit (blood only) 38.2 % (42.0-52.0); Hemoglobin 13.3 g/dl (14.0-18.0); Lymphocytes # (manual) 3.22 K/uL (1.2-3.4); Lymphocytes % (manual) 28 %; Mean Corpuscular Hemoglobin 29.5 pg (25.0-34.0); Mean Corpuscular Hgb Conc 34.8 g/dL (32.0-36.0); Mean Corpuscular Volume 84.7 fL (80.0-100.0); Mean Platelet Volume 8.9 fL (9.4-12.4); Metamyelocytes # (manual) 1.03 K/uL (0-0); Metamyelocytes % (manual) 9 %; Monocytes # (manual) 1.15 K/uL (0.11-0.59); Monocytes % (manual) 10 %; Myelocytes # (manual) 0.23 K/uL (0-0); Myelocytes % (manual) 2 %; Neutrophils # (manual) 5.29 K/uL (1.40-6.50); Neutrophils % (manual) 46 %; Platelet Count 198 K/uL (130-400); RDW Coefficient of Variation 12.7 % (11.5-14.5); RDW Standard Deviation 38.8 fL (36.4-46.3); Red Blood Count 4.51 M/uL (4.70-6.10); White Blood Count 11.49 K/ul (4.8-10.8)
[2024-05-11] MEDS: metroNIDAZOLE 500 MG TAB PO SCH (08:58)
--- NOTE | 2024-05-11 09:51 | Oral/Maxillofacial Progress Nt ---
Date of Service May 11, 2024 Post op day 4 Doing very well, excellent healing. Swelling is decreasing as expected, tissue tone healthy, sutures in place. No drainage noted. Pain better controlled I am signing off from my point of view and will make arrangements wit [facility] nursing staff for outpatient follow up in 10-14 days. I reviewed the pathology - odontogenic cyst with inflammation. Assessment & Plan Admission and Anticipated Discharge Date Admission Date: May 04, 2024 Results & Data Vital Signs (Past 12 Hours) Vital Signs Temp Pulse Resp BP Pulse Ox O2 Del Method 05/11/24 07:16 36.7 C 62 16 129/72 96 Room Air 05/10/24 22:25 36.6 C 63 20 155/72 H 97 Room Air PG Care Time/CCT Total # of Minutes Spent Total Time Spent with Patient: Total time spent is greater than 50% in coordination of care (as documented) at patient's floor/unit and/or counseling patient: Coding Level of Care Code None
--- NOTE | 2024-05-11 15:47 | Hospitalist Progress Note ---
Date of Service May 11, 2024 Assessment & Plan (1) Dental fistula: (2) Cystic lesion of maxilla determined by X-ray: (3) Abscess of left arm: (4) Cutaneous abscess of left wrist: Plan 33 yo M with no significant past medical history presents with infection of the left upper extremity. Patient states he had wounds in both armpits a few months ago and was treated with antibiotics (these are now healed). Now is having wounds in his left upper extremity for last couple of months on and off. The wounds are located just above the wrist, multiple erythematous nodules seen. Streak like lymphatic spread seen above the lesions. Also pimple-like lesion seen on the right arm above the elbow region. Patient states he was treated with doxycycline and Bactrim but is not helping. Denies any fevers. Has pain in the lesions area. Left upper extremity cellulitis maculopapular lesions seen above right wrist with lymphatic streaks seen and also a lesion in the left arm above elbow States having these lesions last couple of months on and off. And was treated with Bactrim and doxycycline per patient. Also had similar lesions on both his axillary region few months back and was treated- these are now healed. MRSA screen positive ER started on IV Vanco. IV Zosyn added on admission, then developed itching and switched overnight to ertapenem wound cultx growing staph Blood Cx x2 sets NGTD wound care consulted Orthopedics consulted - seen by Dr. Menon -s/p surgical irrigation debridement of this area on 05/07 -wound cultures from I &D pending ID consulted for further recommendations. Recommended the following - Stopped vancomycin iv and ertapenem - Start cefazolin 2 gm iv q8 hours for suspected Staphylococcus and Streptococcus infection. Cefazolin is safe to use for any patient with history of allergy to penicillin as it does not share the same R1 side change. However, the patient states that he tolerated amoxicillin without any reaction in the recent past: I doubt the patient has PCN or zosyn allergy. - I recommend I&D for the two sites as needed: the patient needs to be evaluate if abscess is forming for the lesion in L biceps area. - If the patient continues to do well on cefazolin, may discharge the patient on cefadroxil 1 gm po 12 hours or keflex 500 mg po q6 hours to complete total 14 days of abx therapy - I recommend dermatology evaluation for the nodules. I am convinced that the patient has cellulitis but not sure if the cellulitis is the primary condition. The infection he has now may be an superimposed infection. - Please, contact ID if he does not continue to improve on cefazolin. Continued ertapenem for anaerobic coverage for tooth abscess as well (see below). Vancomycin discontinued. Will discuss with ID once more 05/08- WBC significantly elevated, vancomycin put back on postop 05/09- improved WBC with vancomycin now back on, re-consulted ID awaiting recs 05/10- Case discussed with ID once more, Dr Dyana Kelsey. Recommended the following: addition of Flagyl to IV Cefazolin if concern for anaerobic coverage and "If there is concern for a deeper infection which is reasonable since he needed a wound vac I would get a MRI of his wrist." MRI wrist ordered. Antibiotics changed to IV cefazolin and Flagyl at this time, while waiting on MRI wrist results. Continue vancomycin. Outpt Dermatology followup 05/11- pt refused wrist MRI overnight. PCP followup. Attempted to call longterm multiple times to give signout for discharge. No one picks up. Case discussed with Advanced Quality Engineer Dr Saleh, states continue with abx and plan, pt stable for discharge Palatal cyst/ abscess, tooth infection Face CT concerning for dental abscess Dental surgery - Dr. Gross consulted (and discussed with at the bedside) -s/p #10 tooth extraction and palatal cyst/ abscess drainage on 05/07 concurrently with above procedure Appreciate OMFS recs Continue with Ertapenem for anaerobic coverage, vancomycin discontinued. Will discuss with ID once more 05/10- Case discussed with ID once more, Dr Dyana Kelsey. Recommended the following: addition of Flagyl to IV Cefazolin if concern for anaerobic coverage and "If there is concern for a deeper infection which is reasonable since he needed a wound vac I would get a MRI of his wrist." MRI wrist ordered. Antibiotics changed to IV cefazolin and Flagyl at this time, while waiting on MRI wrist results. Continue vancomycin. 05/11- pt refused wrist MRI overnight. PCP followup. Attempted to call longterm multiple times to give signout for discharge. No one picks up. Iron Deficiency anemia Hgb in 13 range Iron levels low Started on po iron supplements with docusate for constipation Chest tightness - resolved Cardiomegaly says from anxiety two sets of troponin negative ekg unremarkable Consider echo, chest xray noting cardiomegaly will monitor. Diet: regular DVT prophylaxis - Lovenox resumed Dispo: return to longterm once medically stable Admission and Anticipated Discharge Date Admission Date: May 04, 2024 Subjective pt refused MRI wrist overnight. lots of questions about where he will go when he returns to the longterm Multiple calls placed to the longterm today to give signout for discharge back. No one picks up though guards note that they are able to call and speak to someone. Review of Systems Review of Systems: All systems reviewed & are unremarkable except as noted in Subjective Physical Exam Physical Exam: General: Alert, oriented. No acute distress Skin: wound vac over left forearm wound, red dry scaly papule near left wrist Psych: Appropriate mood and affect Neuro: No gross deficits HEENT: NC/AT Chest: Nontender to palpation. CV: RRR Resp: Breath sounds clear bilaterally, no increased effort of breathing. Abdomen: Soft, nontender, nondistended Extremities: No edema in lower extremities bilaterally. Results & Data Results & Data Vital Signs (Past 12 Hours) Vital Signs Temp Pulse Resp BP Pulse Ox O2 Del Method 05/11/24 15:32 36.6 C 71 16 146/83 H 95 Room Air 05/11/24 07:16 36.7 C 62 16 129/72 96 Room Air
[2024-05-11] MEDS: FIRST - Mouthwash BLM 119 ML PO SCH (17:52)
--- NOTE | 2024-05-11 21:51 | Operative Report ---
PG Post Operative Report Pre & Post Diagnosis Operation Date: 05/07/24 09:40 Pre-Op Diagnosis: Cutaneous abscess of left wrist, Cystic lesion of maxilla, Abscess of pulp of tooth Post-Op Diagnosis: Cutaneous abscess of left wrist, Cystic lesion of maxilla, Abscess of pulp of tooth I identified the patient and participated in the time-out.: Yes Procedure Operation Date: 05/07/24 09:40 Actual Procedures p Drainage of Palatal Cyst, (Not Applicable) - Boo Gross DMD s Extraction of Tooth #10,(Left) - Boo Gross DMD s Irrigation and debridement of left wrist and arm abscess (Left) - Burak Menon MD Surgeon Boo Gross DMD Marketing Research Coordinator none Estimated Blood Loss 10 Findings Consistent with Post-Op Diagnosis large palatal swelling with fistula Specimens cystic lesion anterior palate Drains none Anesthesia Type General Complications none Disposition Accompanied Patient To Recovery: Yes Indications infection palate Description of Procedure Pre-op= large cyst of anterior hard palate with infected # 10 Diagnoses Cystic lesion of maxilla determined by X-ray M27.40 Abscess of pulp of tooth K04.01 Dental fistula K04.6 CPT Codes EXCISE MAX/ZYGOMA B9 TUMOR - 14136 ([id number]) Extraction of Erupted Tooth - D7140 ([id number]) Once cleared for surgery general anesthesia was achieved, the eyes were protected by the anesthesia dept criteria.. A time out was take for patient ID, antibiotics, equipment and position verification once all agreed the procedure began. Local anesthesia was given into each area using Marcaine with a vasoconstrictor ( 1.8 ml per site). A throat pack was placed after the oral cavity was irrigated with saline. Once a surgical level of anesthesia was obtained and the local anesthesia was given time for the blocks the surgery was started. I turned my attention to the upper # 10 extraction and associated cyst Excision of large cyst of anterior palate and extraction of # 10 An Incision was made over the on the palatal aspect of teeth # 6-13. The full thickness flap was reflected, bone removed with a rongeur and drill to de-roof the large cyst , the # 10 tooth was visualized and removed with a dental forceps. Now using a large curette the cyst lesion was carefully removed from the osseous defect. Bony margins were trimmed and irrigated to insure that all the soft material was removed. The bony defect was now smoothed. The fistula of the palate was closed with a few 4-0 Vicryl sutures. A Surgicel packing was placed into the large defect to control ant bleeding. Finally I sutured the palatal flap closed with a 4-0 Vicryl in a incidental fashion. At this time there was a water tight closure of the flap and fistula. I inspected the sites to insure all bleeding was controlled. I removed the throat pack and suctioned the throat. A gauze pressure dressings was placed. All instrument and sponge count was correct. AT this time I completed my part of the procedure and turned the case over to Dr Burak Menon and his PA to drain the infections on his left wrist and arm. Dr Menon will dictate his report in a separately The patient tolerated may part of the surgery very well. I will follow the patient in my office, Rx and instructions will be given upon discharge. I attest to the content of the Intraoperative Record and any orders documented therein. Any exceptions are noted below.
[2024-05-12] MEDS ORDERED: cephALEXin 500 MG CAP PO SCH
[2024-05-12] MEDS ORDERED: metroNIDAZOLE 500 MG TAB PO SCH
[2024-05-12 06:08] LABS: BUN Creatinine Ratio 21.8 (10-20); Calcium 8.9 mg/dl (8.6-10.3); Creatinine Clr Calc Pharmacy 140.4 ml/min; Est GFR (African American) 135.5 ml/min; Est GFR (Non-African American) 116.9 ml/min; Potassium 4.1 mmol/L (3.5-5.1)
[2024-05-12 06:20] LABS: Hematocrit (blood only) 39.8 % (42.0-52.0); Hemoglobin 13.8 g/dl (14.0-18.0); Mean Corpuscular Hemoglobin 29.7 pg (25.0-34.0); Mean Corpuscular Hgb Conc 34.7 g/dL (32.0-36.0); Mean Corpuscular Volume 85.6 fL (80.0-100.0); Mean Platelet Volume 8.9 fL (9.4-12.4); Platelet Count 213 K/uL (130-400); Polychromasia 1+; RDW Coefficient of Variation 12.7 % (11.5-14.5); RDW Standard Deviation 39.6 fL (36.4-46.3); Red Blood Count 4.65 M/uL (4.70-6.10); White Blood Count 11.44 K/ul (4.8-10.8)
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
[2024-05-12 10:08] LABS: ALC (manual) 2.86 K/uL (1.2-3.4); ANC (manual) 5.26 K/uL (1.4-6.5); Basophils # (manual) 0.34 K/uL (0-0.2); Basophils % (manual) 3 %; Eosinophils # (manual) 0.34 K/uL (0-0.50); Eosinophils % (manual) 3 %; Lymphocytes # (manual) 2.86 K/uL (1.2-3.4); Lymphocytes % (manual) 25 %; Metamyelocytes # (manual) 0.92 K/uL (0-0); Metamyelocytes % (manual) 8 %; Monocytes # (manual) 1.49 K/uL (0.11-0.59); Monocytes % (manual) 13 %; Myelocytes # (manual) 0.23 K/uL (0-0); Myelocytes % (manual) 2 %; Neutrophils # (manual) 5.26 K/uL (1.40-6.50); Neutrophils % (manual) 46 %
[2024-05-13] MEDS ORDERED: VANCOMYCIN LEVEL ONE (05:30)
== END 2024-05-12 12:25 | DRG 572 ==
LOC: ED 18:46 → SUATTDRO 21:47 → 3W 21:47

== ENCOUNTER 2024-08-05 08:33 | Inpatient (IN) ==
[2024-08-05 09:55] LABS: Basophils # (auto) 0.04 K/uL (0.00-0.20); Basophils % (auto) 0.4 %; Eosinophils # (auto) 0.08 K/uL (0.00-0.50); Eosinophils % (auto) 0.9 %; Hematocrit (blood only) 39.1 % (42.0-52.0); Hemoglobin 13.4 g/dl (14.0-18.0); Immature Granulocytes # (auto) 0.08 K/uL (0.01-0.20); Immature Granulocytes % (auto) 0.9 %; Lymphocytes % (auto) 24.5 %; Mean Corpuscular Hemoglobin 29.1 pg (25.0-34.0); Mean Corpuscular Hgb Conc 34.3 g/dL (32.0-36.0); Mean Corpuscular Volume 84.8 fL (80.0-100.0); Monocytes # (auto) 0.76 K/uL (0.11-0.59); Monocytes % (auto) 8.5 %; Neutrophils # (auto) 5.81 K/uL (1.40-6.50); Neutrophils % (auto) 64.8 %; Platelet Count 199 K/uL (130-400); RDW Coefficient of Variation 13.1 % (11.5-14.5); RDW Standard Deviation 40.2 fL (36.4-46.3); Red Blood Count 4.61 M/uL (4.70-6.10); White Blood Count 8.97 K/ul (4.8-10.8)
[2024-08-05 10:07] LABS: Albumin Globulin Ratio 1.6 (0.9-2); Albumin Level 4.6 gm/dl (3.4-5.0); BUN Creatinine Ratio 16.3 (10-20); Bilirubin,Total 0.6 mg/dl (0.2-1.0); C Reactive Protein 5.64 mg/dl (0-0.5); Calcium 10.1 mg/dl (8.6-10.3); Creatinine Clr Calc Pharmacy 133.9 ml/min; Globulin 2.9 gm/dl (2.5-4.0); Potassium 4.5 mmol/L (3.5-5.1); Total Protein 7.5 gm/dl (6.0-8.3)
[2024-08-05 10:16] LABS: INR 0.9 (0.9-1.1); Prothrombin Time 10.2 Seconds (9.0-12.0)
--- NOTE | 2024-08-05 10:43 | Emergency Department Note ---
Impression & Plan Cellulitis of left hand, Abscess of left hand, MRSA colonization ED Provider Note NAME: LARA [id number] FERNY AGE: 33 SEX: M : 1990 ARRIVES VIA: [employer] INFORMANT: Patient ED PROVIDER(S): Wayne Fraser MD CHIEF COMPLAINT: Cellulitis/abscess, referred. PLAN: Disposition: Admit MEDICAL DECISION MAKING: The patient is a 33-year-old gentleman, group home inmate at [facility] with a past medical history of MRSA colonization, recurrent cellulitis and abscess formation who presents to the emergency department accompanied by group home guards for evaluation of worsening cellulitis and abscess of the left hand as well as left severe cellulitis of the right anterior right knee and left cheek and posterior right shoulder. Patient denies fevers. He has been treated with antibiotics at his facility without improvement. Case was discussed with [facility] physician, Dr. Montana who feels the patient requires admission for IV antibiotics and ID consultation. On evaluation the patient is no acute distress, afebrile with stable vital signs. He dorsum of left hand demonstrates erythema, warmth, edema and tenderness with a approximate 2 cm area of fluctuance centrally with 2 punctate pustules. FROM/timber girdler intact with pain. Right anterior knee with 2cm area of erythema without edema, fluctuance or crepitus. FROM intact. 1cm area of erythema of left cheek. 3cm area of erythema of right posterior shoulder with central crusting. WBC 8.9K with no neutrophilia or left shift. H/H 13.4/39.1 similar to prior. Platelets within normal limits. Chemistry without metabolic acidosis. Electrolytes without significant [place]. AST is 40, nonspecific and LFTs otherwise unremarkable. Procalcitonin is not elevated. ESR and CRP are elevated at 48 and 5.6, respectively. MRSA nasal screen was positive. XR left hand negative for osseous involvement or gas. Needle aspiration of suspected abscess of dorsum the left hand was attempted with no purulent draining and only scant amount of sanguinous discharge. Antibiotics initiated with IV cefepime and daptomycin. Patient agrees with plan for mission for further management. Case was discussed with Grecia Chen PAC, with Dr. Regina Paige hospitalist who will evaluate the patient for admission. Further management per admitting team. On evaluation the patient no distress, afebrile stable vital signs. Triage Nursing notes reviewed and agree them. Prior/external medical records reviewed Vital Signs: reviewed Differential diagnosis: Cellulitis, abscess, MRSA infection, DVT, necrotizing fasciitis, dermatitis, drug eruption, allergic reaction, as well as other pathologies. ER treatment provided: See below. Diagnostics interpreted by me: ECG: NSR, 63 bpm, no ectopy, no overt ST elevation or depression. Cardiac Monitoring: An order for continuous cardiac monitoring was placed and demonstrated NSR, 63 bpm, no ectopy. Laboratory studies: See below Imaging studies: See below Consultation(s): Grecia Chen PAC, with Dr. Regina Paige hospitalist HPI: The patient is a 33-year-old gentleman, group home inmate at [facility] with a past medical history of MRSA colonization, recurrent cellulitis and abscess formation who presents to the emergency department accompanied by group home guards for evaluation of worsening cellulitis and abscess of the left hand as well as left severe cellulitis of the right anterior right knee and left cheek and posterior right shoulder. Patient denies fevers. He has been treated with antibiotics at his facility without improvement. Case was discussed with [facility] physician, Dr. Montana who feels the patient requires admission for IV antibiotics and ID consultation. ROS: See above HPI for pertinent positives & negatives. A total of 10 systems reviewed and were otherwise negative. VITALS:See Below PHYSICAL EXAMINATION: GENERAL: Awake, alert, in no distress HENT: Normocephalic, atraumatic. Oropharynx unremarkable. EYES: Normal conjunctiva. Sclera non-icteric. NECK: Supple. No nuchal rigidity. FROM. No JVD. RESPIRATORY: Clear to auscultation. CARDIAC: Regular rate, normal rhythm. Extremities warm and well perfused. Pulses equal. ABDOMEN: Soft, non-distended. No tenderness to palpation. No rebound or guarding. No masses. MUSCULOSKELETAL: Chest examination reveals no tenderness. There is no CVA tenderness to palpation. No joint edema. LOWER EXTREMITIES: Calves are equal size bilaterally and non-tender. No edema. No discoloration. NEURO: Normal sensorium. No sensory or motor deficits noted. SKIN: Dorsum of left hand demonstrates erythema, warmth, edema and tenderness with a approximate 2 cm area of fluctuance centrally with 2 punctate pustules. FROM/timber girdler intact with pain. Right anterior knee with 2cm area of erythema without edema, fluctuance or crepitus. FROM intact. 1cm area of erythema of left cheek. 3cm area of erythema of right posterior shoulder with central crusting. Wayne Fraser MD Past Med/Surg History Problem List Hematochezia Abscess of right shoulder MRSA colonization (Acute) Abscess of left hand (Acute) Cellulitis of left hand (Acute) Dental fistula Cystic lesion of maxilla determined by X-ray Abscess of left arm Cutaneous abscess of left wrist Abscess of pulp of tooth Left breast abscess Cellulitis of arm, left (Acute) Social History Smoking Status: Former smoker Tobacco Type: E-cigarettes / Vaping Second Hand Exposure: No; Do You Dip or Chew Tobacco: No; Hx Alcohol Use: No (not since incarceration) Hx Substance Use: Yes Last Used Substance Other:: 5-6 years ago Preferred Language: Kazakh Communication Ability: Effective 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 Beliefs That Will Affect Care: None Current Living Situation: Other Current Living Situation Comment: [facility] Feels Safe at Home: Yes Assistive Devices: None Allergies Allergies Allergy/AdvReac Type Severity Reaction Status Date / Time piperacillin [From Zosyn] Allergy Itching Verified 05/07/24 10:08 tazobactam [From Zosyn] Allergy Itching Verified 05/05/24 23:38 Home Meds Home Medications Medication Instructions Recorded Confirmed acetaminophen 325 mg tablet 325 mg PO TID PRN Pain 08/05/24 08/05/24 (Tylenol) amoxicillin 875 mg-potassium 1 tab PO BID 08/05/24 08/05/24 clavulanate 125 mg tablet benzoyl peroxide 10 % topical gel 1 applic topical DAILY 08/05/24 08/05/24 benzoyl peroxide 5 % topical 1 applic topical DAILY 08/05/24 08/05/24 cleanser chlorhexidine gluconate 0.12 % 15 ml buccal DAILY 08/05/24 08/05/24 mouthwash (Periogard) lidocaine 5 % topical ointment 1 applic topical BID PRN Unknown 08/05/24 08/05/24 meloxicam 7.5 mg tablet 7.5 mg PO DAILY 08/05/24 08/05/24 Previous Rx's Medication Instructions Recorded ferrous sulfate 325 mg (65 mg 325 mg PO QAM #30 tabs 05/12/24 iron) tablet,delayed release Results & Data (ED) Vital Signs Vital Signs - 24 hr 08/05/24 08:37 08/05/24 08:57 08/05/24 09:48 Temperature 36.5 C Temperature Source Temporal Artery Scan Pulse Rate 85 69 Pulse Rate from SpO2 Sensor 68 Respiratory Rate 18 24 Blood Pressure 144/88 H 143/76 H Blood Pressure Mean 106 98 Pulse Oximetry 97 98 Oxygen Delivery Method Room Air Room Air Sepsis New/Unexplained Change in Mental Status No Sepsis Action Taken by Nursing No Action Required 08/05/24 10:00 08/05/24 10:56 Temperature Temperature Source Pulse Rate 67 63 Pulse Rate from SpO2 Sensor 70 Respiratory Rate 15 Blood Pressure 146/75 H Blood Pressure Mean 93 Pulse Oximetry 97 Oxygen Delivery Method Room Air Sepsis New/Unexplained Change in Mental Status Sepsis Action Taken by Nursing Laboratory Data Attestation: I reviewed the patient's lab results. 08/05/24 09:26 08/05/24 09:26 Lab Results 08/05/24 Range/Units 09:26 WBC 8.97 (4.8-10.8) K/ul RBC 4.61 L (4.70-6.10) M/uL Hgb 13.4 L (14.0-18.0) g/dl Hct 39.1 L (42.0-52.0) % MCV 84.8 (80.0-100.0) fL MCH 29.1 (25.0-34.0) pg MCHC 34.3 (32.0-36.0) g/dL RDW Std Deviation 40.2 (36.4-46.3) fL RDW Coeff of Leslye 13.1 (11.5-14.5) % Plt Count 199 (130-400) K/uL MPV 9.0 L (9.4-12.4) fL Immature Gran % (Auto) 0.9 % Neut % (Auto) 64.8 % Lymph % (Auto) 24.5 % [place] % (Auto) 8.5 % Eos % (Auto) 0.9 % Baso % (Auto) 0.4 % Neut # (Auto) 5.81 (1.40-6.50) K/uL Lymph # (Auto) 2.20 (1.20-3.40) K/uL [place] # (Auto) 0.76 H (0.11-0.59) K/uL Eos # (Auto) 0.08 (0.00-0.50) K/uL Baso # (Auto) 0.04 (0.00-0.20) K/uL Immature Gran # (Auto) 0.08 (0.01-0.20) K/uL ESR 48 H (0-15) mm/hr PT 10.2 (9.0-12.0) Seconds INR 0.9 (0.9-1.1) Sodium 137 (136-145) mmol/L Potassium 4.5 (3.5-5.1) mmol/L Chloride 105 (98-107) mmol/L Carbon Dioxide 25 (21-32) mmol/L Anion Gap 7 (3-11) BUN 13 (6-23) mg/dl Creatinine 0.80 (0.6-1.4) mg/dl Est Cr Clr Drug Dosing 133.9 ml/min eGFR 118.36 BUN/Creatinine Ratio 16.3 (10-20) Glucose 94 (70-99(Fasting)) mg/dl Calcium 10.1 (8.6-10.3) mg/dl Total Bilirubin 0.6 (0.2-1.0) mg/dl AST 40 H (13-39) U/L ALT 29 (7-52) U/L Alkaline Phosphatase 55 (34-104) U/L C-Reactive Protein 5.64 H (0-0.5) mg/dl Total Protein 7.5 (6.0-8.3) gm/dl Albumin 4.6 (3.4-5.0) gm/dl Globulin 2.9 (2.5-4.0) gm/dl Albumin/Globulin Ratio 1.6 (0.9-2) Procalcitonin < 0.02 (0-0.5) ng/ml Nasal Screen MRSA (PCR) Positive A (Negative) Administered Medications Lactated Ringer's (Lr) 1,000 mls @ 125 mls/hr IV .Q8H RENETTA Stop: 09/04/24 10:44 Last Admin: 08/05/24 11:36 Dose: 125 mls/hr Documented By: MYRANDA Tramadol HCl (Tramadol Hcl 50 Mg Tablet) 50 mg PO Q4H PRN PRN Reason: Pain Stop: 09/04/24 14:47 Last Admin: 08/05/24 16:06 Dose: 50 mg Documented By: [facility] Discontinued Medications Daptomycin 450 mg/ Syringe 9 mls @ 4.5 mls/min IV Q24H [facility]; Protocol Stop: 08/07/24 10:44 Last Admin: 08/05/24 11:36 Dose: 4.5 mls/min Documented By: Cefepime HCl (Maxipime 2000mg) 2,000 mg in 20 mls @ 5 mls/min IV NOW STA; Protocol Stop: 08/05/24 10:40 Last Admin: 08/05/24 11:03 Dose: 5 mls/min Documented By: MYRANDA Acetaminophen (Ofirmev) 1,000 mg in 100 mls @ 400 mls/hr IV NOW STA Stop: 08/05/24 10:52 Last Infusion: 08/05/24 11:42 Dose: Infused Documented By: Admin: 08/05/24 11:05 Dose: 400 mls/hr Documented By: MYRANDA Ioversol (Optiray 320 100ml) 94 ml IV ONCE ONE Stop: 08/05/24 13:09 Last Admin: 08/05/24 13:09 Dose: 94 ml Documented By: SUSANNE Morphine Sulfate (Morphine Sulfate 4 Mg/Ml 1 Ml Carp\Vial) 4 mg IV NOW STA Stop: 08/05/24 10:39 Last Admin: 08/05/24 11:07 Dose: 4 mg Documented By: MYRANDA Mupirocin (Mupirocin 2% Oint 22 Gm Tube) 1 appln EXT NOW STA Stop: 08/05/24 11:51 Last Admin: 08/05/24 12:51 Dose: 1 appln Documented By: PRADEEP Imaging Data Radiologist's Impression: Hand X-Ray 08/05/24 10:38 XR hand LT min 3V routine CLINICAL HISTORY: abscess/cellulitis TECHNIQUE: 3 views of the left hand were obtained. Comparison: None available at the time of this dictation. FINDINGS: There is no evidence of an acute fracture. Degenerative changes and chronic appearing deformity at the fifth MCP joint. No soft tissue abnormality is seen. IMPRESSION: No bony erosions to suggest osteomyelitis. No prominent soft tissue swelling. ACT 112: Negative or not required by law. Electronically signed by: Simone Valle M.D. 08/05/2024 11:30 AM Discharge Plan Visit Data Chief Complaint: Infection Stated Complaint: SKIN INFECTION ED Provider: Wayne Fraser Discharge Problem: Cellulitis of left hand, Abscess of left hand, MRSA colonization Patient Disposition: Admitted As Inpatient
[2024-08-05] MEDS: CEFEPIME 2000MG 2,000 MG/20 ML SYR IV STA (11:03)
[2024-08-05] MEDS: ACETAMINOPHEN 1,000 MG/100 ML VIAL IV STA (11:05)
[2024-08-05] MEDS: MoRPHine SULFATE 4 MG/ML 1 ML CARP\\VIAL IV STA (11:07)
--- NOTE | 2024-08-05 11:31 | XRay Report ---
XR hand LT min 3V routine CLINICAL HISTORY: abscess/cellulitis TECHNIQUE: 3 views of the left hand were obtained. Comparison: None available at the time of this dictation. FINDINGS: There is no evidence of an acute fracture. Degenerative changes and chronic appearing deformity at th e fifth MCP joint. No soft tissue abnormality is seen. IMPRESSION: No bony erosions to suggest osteomyelitis. No prominent soft tissue swelling. ACT 112: Negative or not required by law. Electronically signed by: Simone Valle M.D. 08/05/2024 11:30 AM
[2024-08-05] MEDS: DAPTOmycin 450 MG in SYRINGE 0 ML IV SCH (11:36)
[2024-08-05] MEDS: LACTATED RINGER'S 1,000 ML IV SCH (11:36)
[2024-08-05] MEDS: MUPIROCIN 2% OINT 22 GM TUBE EXT STA (12:51)
[2024-08-05] MEDS: OPTIRAY 320 100ml IV ONE (13:09)
--- NOTE | 2024-08-05 13:18 | History & Physical Report ---
Date of Service August 05, 2024 Assessment & Plan (1) MRSA colonization: (2) Abscess of left hand: (3) Abscess of right shoulder: (4) Hematochezia: Plan Assessment and plan: Left hand cellulitis Hand x-ray shows no signs of osteo Check left hand CT to rule out abscess Continue IV Dapto/cefepime, ID consulted No leukocytosis, afebrile, blood cultures pending Discussed with Ortho, n.p.o. after midnight for possible I&D on 08/06 Daily CBC/wound care/Check HIV/hepatitis C to rule out underlying causes Consider underlying autoimmune diseasegiven reoccurrence Hematochezia: Reports bright red blood with each bowel movement x 1 week Heme stool ordered, hemoglobin stable, consider GI consult Start Protonix twice daily- CT A/P ordered Iron deficiency anemia: Hold ferrous sulfate for now, hemoglobin at baseline Full code DVT prophylaxis: SCDs, hold off on AC with hematochezia A total of 60 minutes was spent reviewing labs/diagnostic data, discussion with consultants, facilitating plan of care, chart review History of Present Illness Chief Complaint: Left hand infection Primary Care Provider: JAMES Gallegos The patient is a 33-year-old male with no significant past medical history, currently resides in [facility] who presents to the ER today on 08/05/2024 with concerns of left hand infection. Patient reports over the past 6 months he has been developing boils and sores on different places of his body. He was recen tly hospitalized and discharged on 05/12/2024 after he was admitted with left upper extremity cellulitis s/p left wrist/left bicep washout. At this time he was seen by infectious disease and orthopedics and he was discharged home on Keflex and Flagyl for 7 days after his wound culture grew MSSA, blood cultures were negative at that time. He has been incarcerated for about 5 years and he reports he recently switched jails and he has been noticing the sores over the past 6 months. He denies any history of autoimmune disorders. He reports being tested for HIV and hepatitis 4 months ago which were negative. He denies any fever/chills/nausea/vomiting/abdominal pain. Today, there is a boil on his right shoulder, right knee and left cheek. He reports that most of the cyst/abscesses recur on his left side. At the time of his last hospitalization, patient also had a dental abscess in the left side of his mouth s/p #10 tooth extraction and palatal/abscess drainage. He also reported some bright red blood per rectum over the past week with each bowel movement. Reports it is like "a girl with her period". Denies any pain with bowel movements and reports having a daily bowel movement, denies constipation or diarrhea. The patient was given IV Dapto/cefepime in the ED which will be continued On arrival to the ED, labs are fairly unremarkable. No leukocytosis Left hand x-ray did not show any signs of osteomyelitis or abscess The patient will be admitted for further management of left hand cellulitis Allergies Allergy/AdvReac Type Severity Reaction Status Date / Time piperacillin [From Zosyn] Allergy Itching Verified 05/07/24 10:08 tazobactam [From Zosyn] Allergy Itching Verified 05/05/24 23:38 Home Medications Medication Instructions Recorded Confirmed Type ferrous sulfate 325 mg (65 mg 325 mg PO QAM #30 tabs 05/12/24 08/05/24 Rx iron) tablet,delayed release acetaminophen 325 mg tablet 325 mg PO TID PRN Pain 08/05/24 08/05/24 History (Tylenol) amoxicillin 875 mg-potassium 1 tab PO BID 08/05/24 08/05/24 History clavulanate 125 mg tablet benzoyl peroxide 10 % topical gel 1 applic topical DAILY 08/05/24 08/05/24 History benzoyl peroxide 5 % topical 1 applic topical DAILY 08/05/24 08/05/24 History cleanser chlorhexidine gluconate 0.12 % 15 ml buccal DAILY 08/05/24 08/05/24 History mouthwash (Periogard) lidocaine 5 % topical ointment 1 applic topical BID PRN Unknown 08/05/24 08/05/24 History meloxicam 7.5 mg tablet 7.5 mg PO DAILY 08/05/24 08/05/24 History Past Med/Surg History Problem List Hematochezia Abscess of right shoulder MRSA colonization (Acute) Abscess of left hand (Acute) Cellulitis of left hand (Acute) Dental fistula Cystic lesion of maxilla determined by X-ray Abscess of left arm Cutaneous abscess of left wrist Abscess of pulp of tooth Left breast abscess Cellulitis of arm, left (Acute) Social History Smoking Status: Current some day smoker Tobacco Type: E-cigarettes / Vaping Second Hand Exposure: No; Do You Dip or Chew Tobacco: No; Hx Alcohol Use: Yes Alcohol type: beer, wine and hard liquor Hx Substance Use: Yes Last Used Substance Other:: 2019 Preferred Language: Rwandan Communication Ability: Effective Surgical Instrument Mechanic Required: No Beliefs That Will Affect Care: Sikhism Current Living Situation: Other Current Living Situation Comment: Nursing Home Feels Safe at Home: Yes Assistive Devices: None Review of Systems Review of Systems: All systems reviewed & are unremarkable except as noted in HPI & below Physical Exam Constitutional: WD/WN, vitals as above Eyes: PERRL, conjunctivae normal, anicteric sclerae ENMT: external ear and nose normal, oropharynx normal Neck: trachea midline, no thyromegaly Respiratory: normal respiratory effort, lungs clear to auscultation Cardiovascular: RRR, no murmur, no edema Gastrointestinal (Abdomen): normal bowel sounds, soft, nontender, no hepatosplenomegaly Musculoskeletal: no cyanosis or clubbing, extremities motor strength 5/5 Skin: no rashes, warm and dry Left hand cyst/redness/cellulitis, right knee redness, right upper shoulder cyst, currently draining, left cheek boil Neurologic: PERRL, EOMI, accommodation nl, no face palsy, no dysarthria Psychiatric: A+Ox3, euthymic affect Lymphatic: no cervical or axillary lymphadenopathy Results & Data Results & Data Vital Signs (Past 12 Hours) Vital Signs Temp Pulse Resp BP Pulse Ox O2 Del Method 08/05/24 10:56 63 08/05/24 10:00 67 15 146/75 H 97 Room Air 08/05/24 09:48 69 24 143/76 H 98 08/05/24 08:57 Room Air 08/05/24 08:37 36.5 C 85 18 144/88 H 97 Room Air Diagnostic Findings Laboratory Results WBC 8.97 K/ul (4.8-10.8) 08/05/24 09:26 RBC 4.61 M/uL (4.70-6.10) L 08/05/24 09:26 Hgb 13.4 g/dl (14.0-18.0) L 08/05/24 09: Hct 39.1 % (42.0-52.0) L 08/05/24 09: MCV 84.8 fL (80.0-100.0) 08/05/24 09: MCH 29.1 pg (25.0-34.0) 08/05/24 09: MCHC 34.3 g/dL (32.0-36.0) 08/05/24 09: RDW Std Deviation 40.2 fL (36.4-46.3) 08/05/24 09: RDW Coeff of Leslye 13.1 % (11.5-14.5) 08/05/24 09: Plt Count 199 K/uL (130-400) 08/05/24 09: MPV 9.0 fL (9.4-12.4) L 08/05/24 09: Immature Gran % (Auto) 0.9 % 08/05/24 09: Neut % (Auto) 64.8 % 08/05/24 09:26 Lymph % (Auto) 24.5 % 08/05/24 09:26 [place] % (Auto) 8.5 % 08/05/24 09:26 Eos % (Auto) 0.9 % 08/05/24 09: Baso % (Auto) 0.4 % 08/05/24 09:26 Neut # (Auto) 5.81 K/uL (1.40-6.50) 08/05/24 09: Lymph # (Auto) 2.20 K/uL (1.20-3.40) 08/05/24 09:26 [place] # (Auto) 0.76 K/uL (0.11-0.59) H 08/05/24 09:26 Eos # (Auto) 0.08 K/uL (0.00-0.50) 08/05/24 09: Baso # (Auto) 0.04 K/uL (0.00-0.20) 08/05/24 09:26 Immature Gran # (Auto) 0.08 K/uL (0.01-0.20) 08/05/24 09: ESR 48 mm/hr (0-15) H 08/05/24 09:26 PT 10.2 Seconds (9.0-12.0) 08/05/24 09:26 INR 0.9 (0.9-1.1) 08/05/24 09:26 Sodium 137 mmol/L (136-145) 08/05/24 09:26 Potassium 4.5 mmol/L (3.5-5.1) 08/05/24 09:26 Chloride 105 mmol/L (98-107) 08/05/24 09:26 Carbon Dioxide 25 mmol/L (21-32) 08/05/24 09:26 Anion Gap 7 (3-11) 08/05/24 09:26 BUN 13 mg/dl (6-23) 08/05/24 09:26 Creatinine 0.80 mg/dl (0.6-1.4) 08/05/24 09:26 Est Cr Clr Drug Dosing 133.9 ml/min 08/05/24 09:26 eGFR 118.36 08/05/24 09:26 BUN/Creatinine Ratio 16.3 (10-20) 08/05/24 09:26 Glucose 94 mg/dl (70-99(Fasting)) 08/05/24 09:26 Calcium 10.1 mg/dl (8.6-10.3) 08/05/24 09:26 Total Bilirubin 0.6 mg/dl (0.2-1.0) 08/05/24 09:26 AST 40 U/L (13-39) H 08/05/24 09:26 ALT 29 U/L (7-52) 08/05/24 09:26 Alkaline Phosphatase 55 U/L (34-104) 08/05/24 09:26 C-Reactive Protein 5.64 mg/dl (0-0.5) H 08/05/24 09:26 Total Protein 7.5 gm/dl (6.0-8.3) 08/05/24 09:26 Albumin 4.6 gm/dl (3.4-5.0) 08/05/24 09:26 Globulin 2.9 gm/dl (2.5-4.0) 08/05/24 09:26 Albumin/Globulin Ratio 1.6 (0.9-2) 08/05/24 09:26 Procalcitonin < 0.02 ng/ml (0-0.5) 10/07/24 09:26 Nasal Screen MRSA (PCR) Positive (Negative) A 08/05/24 09:26 Impressions Hand X-Ray 08/05/24 10:38 XR hand LT min 3V routine CLINICAL HISTORY: abscess/cellulitis TECHNIQUE: 3 views of the left hand were obtained. Comparison: None available at the time of this dictation. FINDINGS: There is no evidence of an acute fracture. Degenerative changes and chronic appearing deformity at the fifth MCP joint. No soft tissue abnormality is seen. IMPRESSION: No bony erosions to suggest osteomyelitis. No prominent soft tissue swelling. ACT 112: Negative or not required by law. Electronically signed by: Simone Valle M.D. 08/05/2024 11:30 AM Supervising Physician Co-Signing Physician Notes Attending Addendum: Case reviewed with the advanced practitioner. I have personally performed a history and physical examination on the patient. I have reviewed the advanced practitioner's documentation on the date of service referenced in note, and I agree with, and take responsibility for the plan of care. please refer to her notes for full details patient seen and examined, records reviewed by myself as well on exam, patient seen resting reports pain over the Left hand reports rectal bleeding x 1 week no other symptoms VS noted and reviewed oriented x 3 , not in distress, speaks in sentences with no effort nor accessory muscle use normal rate, regular rhythm, no murmurs clear breath sounds bilaterally non distended, soft, nontender left hand: (+) significant edema, erythema, fluctuant mass on the dorsum (+) carbuncle on the right posterior neck region, r knee no bipedal edema, erythema, warmth no neuro deficits all labs, imaging noted and reviewed ASSESSMENT AND PLAN> RIGHT HAND ABSCESS s/p drainage of abscess on the L upper arm few months ago MRSA nasal swab positive blood cultures ordered Dapto + Cefepime Ortho consulted, plan for I&D tomorrow ID consulted RECTAL BLEED CT abd/pelvis: unrevealing Hg stable will consult GI other diagnoses and plan of care as per advanced practitioner's notes Clayton Tapia MD
--- NOTE | 2024-08-05 14:13 | CT Scan Report ---
CT hand LT w con CLINICAL HISTORY: r/o abscess, l hand cellulitis TECHNIQUE: Multidetector row helical CT of the left hand was performed without intravenous contrast. Coronal and sagittal reformations were obtained. Automated dose lowering techniques and/or adjustment according to patient size were utilized for this examination. Comparison: Comparison is made to CT wrist 05/05/2024 FINDINGS: The osseous structures are without fracture or dislocation. The joint spaces are maintained. No joint effusion is seen. There is diffuse soft tissue edema about the dorsal aspect of the hand. There is a rim-enhancing fluid collection measuring 14 x 8 x 13 mm in the dorsal aspect of the fourth metacarp al. IMPRESSION: There is an abscess at the dorsal aspect of the fourth metacarpal. Surrounding cellulitis is seen. ACT 112: Negative or not required by law. Electronically signed by: Simone Valle M.D. 08/05/2024 2:12 PM
--- NOTE | 2024-08-05 15:57 | Orthopedic Consultation ---
Date of Service August 05, 2024 Assessment & Plan (1) Abscess of left hand: I discussed diagnosis and treatment options with him at bedside. I recommended open I&D of his left hand. He understands the risk, benefits, and alternatives to procedures elected to proceed. Questions were answered at bedside. Time was spent scribing the procedure and postop expectations. The decision was made for surgery. He was placed on Dr. Menon schedule for tomorrow. He will be admitted to the hospitalist service for IV antibiotic treatment. He should be n.p.o. past midnight tonight. History of Present Illness Reason for Consultation: Left hand abscess. Requesting Physician: . Attending Physician: Clayton Tapia MD Trev is a 33-year-old inmate who has a history of prior abscesses. He last underwent an I&D of an abscess of his left wrist by Dr. Menon about 2 months ago. Unfortunately he has a new abscess on the dorsal aspect of his left hand. He also has a small abscess on his right knee and his right shoulder, as well as his face. He is being admitted to the hospitalist service for IV antibiotics. Orthopedics was consulted to evaluate and treat.. Allergies Allergy/AdvReac Type Severity Reaction Status Date / Time piperacillin [From Zosyn] Allergy Itching Verified 05/07/24 10:08 tazobactam [From Zosyn] Allergy Itching Verified 05/05/24 23:38 Home Medications Medication Instructions Recorded Confirmed Type ferrous sulfate 325 mg (65 mg 325 mg PO QAM #30 tabs 05/12/24 08/05/24 Rx iron) tablet,delayed release acetaminophen 325 mg tablet 325 mg PO TID PRN Pain 08/05/24 08/05/24 History (Tylenol) amoxicillin 875 mg-potassium 1 tab PO BID 08/05/24 08/05/24 History clavulanate 125 mg tablet benzoyl peroxide 10 % topical gel 1 applic topical DAILY 08/05/24 08/05/24 History benzoyl peroxide 5 % topical 1 applic topical DAILY 08/05/24 08/05/24 History cleanser chlorhexidine gluconate 0.12 % 15 ml buccal DAILY 08/05/24 08/05/24 History mouthwash (Periogard) lidocaine 5 % topical ointment 1 applic topical BID PRN Unknown 08/05/24 08/05/24 History meloxicam 7.5 mg tablet 7.5 mg PO DAILY 08/05/24 08/05/24 History Past Med/Surg History Problem List Hematochezia Abscess of right shoulder MRSA colonization (Acute) Abscess of left hand (Acute) Cellulitis of left hand (Acute) Dental fistula Cystic lesion of maxilla determined by X-ray Abscess of left arm Cutaneous abscess of left wrist Abscess of pulp of tooth Left breast abscess Cellulitis of arm, left (Acute) Social History Smoking Status: Former smoker Tobacco Type: E-cigarettes / Vaping Second Hand Exposure: No; Do You Dip or Chew Tobacco: No; Hx Alcohol Use: No (not since incarceration) Hx Substance Use: Yes Last Used Substance Other:: 5-6 years ago Preferred Language: Nepali Communication Ability: Effective Senior Director Required: No Beliefs That Will Affect Care: None Current Living Situation: Other Current Living Situation Comment: [facility] Feels Safe at Home: Yes Assistive Devices: None Review of Systems All systems reviewed & are unremarkable except as noted in HPI & below. Physical Exam Physical examination of his left hand does show a large abscess over the fourth metacarpal of the left hand. He has motion of his fingers. He has a lot of pain in the area. He has a small abscess on his right knee and an open abscess on his right shoulder.. Constitutional WD/WN, vitals as above Eyes PERRL, conjunctivae normal, anicteric sclerae ENMT external ear and nose normal, oropharynx normal Neck trachea midline, no thyromegaly Respiratory normal respiratory effort Cardiovascular RRR, no murmur, no edema Gastrointestinal (Abdomen) normal bowel sounds, soft, nontender, no hepatosplenomegaly Psychiatric A+Ox3, euthymic affect Results & Data Results & Data Laboratory Results . Diagnostic Findings X-rays of the left hand show no acute fracture. There is a sign of an old boxer's fracture. CT scan of the left hand shows a large abscess over the dorsal aspect of the fourth metacarpal.. PG Care Time/CCT Total # of Minutes Spent Total Time Spent with Patient: Total time spent is greater than 50% in coordination of care (as documented) at patient's floor/unit and/or counseling patient: Coding Level of Care Code 21321 IN/OBS CONSULT LVL 4,60M (57 - DECISION FOR SURGERY) Diagnoses Abscess of left hand L02.512
[2024-08-05] MEDS: traMADol HCL 50 MG TABLET PO PRN (16:06)
[2024-08-05] MEDS ORDERED: DAPTOmycin 275 MG in SYRINGE 0 ML IV SCH (16:30)
--- NOTE | 2024-08-05 17:34 | CT Scan Report ---
CT abd pelvis wo con CLINICAL HISTORY: rectal bleeding TECHNIQUE: Helical axial images of the abdomen and pelvis were obtained. Automated dose lowering tech niques and/or adjustment according to patient size were utilized for this exam. This exam was perfor med without intravenous contrast. CT DOSE: 1013.48 mGy.cm COMPARISON: None available at the time of this dictation. FINDINGS: Lower chest: No acute abnormality. Liver: Unremarkable. No focal lesions are seen. Gallbladder and biliary tree: No calcified gallstones. Normal caliber wall. No intra- or extrahepatic biliary ductal dilation. Pancreas: Unremarkable, no focal lesions. Spleen: Unremarkable. Adrenals: Unremarkable. Kidneys and ureters: Unremarkable. Bladder: Unremarkable. Reproductive organs: Unremarkable. Bowel: Unremarkable. Lymph nodes Retroperitoneal: Unremarkable. Pelvic: Unremarkable. Mesenteric: Unremarkable. Peritoneum: Normal. Vessels: Unremarkable. Abdominal wall: Bilateral fat-containing inguinal hernias are seen. Bones: Unremarkable. IMPRESSION: No acute abnormalities in this patient with rectal bleeding. ACT 112: Negative or not required by law. Electronically signed by: Simone Valle M.D. 08/05/2024 5:33 PM
[2024-08-05 18:22] LABS: HIV 4th Gen(HIV 1,2 AB+p24 Ag Negative (Negative)
[2024-08-05 18:35] LABS: Hep C Ab Rflx HepCQuant RNA Negative (Negative)
[2024-08-05] MEDS: MoRPHine SULFATE 2 MG/ML CARP IV PRN (18:43)
[2024-08-05] MEDS: CETIRIZINE ORAL SOLN 1 MG/ML PO SCH (18:44)
[2024-08-05] MEDS ORDERED: CEFEPIME 2 GM VIAL IV SCH (21:00)
[2024-08-05] MEDS: PANTOprazole 40 MG TAB PO SCH (21:39)
[2024-08-05] MEDS: CEFEPIME 2000MG 2,000 MG/20 ML SYR IV SCH (22:19)
[2024-08-05] MEDS: diphenhydrAMINE 50 MG/ML VIAL IV PRN (22:25)
[2024-08-05] MEDS: KETOROLAC TROMETHAMINE 15 MG/ML VIAL IV ONE (22:26)
[2024-08-06] MEDS: ADVANCED PROBIOTIC 625 MG CAPSULE PO SCH (01:06)
[2024-08-06] MEDS: LORATADINE 10 MG TAB PO ONE (01:06)
[2024-08-06] MEDS: diphenhydrAMINE 2%/ZINC 0.1% CREAM 28.4GM TUBE EXT PRN (01:06)
[2024-08-06] MEDS: HYDROmorphone INJ 0.5 MG/0.5 ML SYR IV PRN (04:14)
[2024-08-06 06:54] LABS: Hematocrit (blood only) 35.1 % (42.0-52.0); Hemoglobin 12.5 g/dl (14.0-18.0); Mean Corpuscular Hgb Conc 35.6 g/dL (32.0-36.0); Mean Corpuscular Volume 84.4 fL (80.0-100.0); Platelet Count 182 K/uL (130-400); RDW Coefficient of Variation 12.9 % (11.5-14.5); RDW Standard Deviation 39.8 fL (36.4-46.3); Red Blood Count 4.16 M/uL (4.70-6.10); White Blood Count 7.42 K/ul (4.8-10.8)
[2024-08-06 07:10] LABS: Albumin Globulin Ratio 1.5 (0.9-2); Albumin Level 3.9 gm/dl (3.4-5.0); BUN Creatinine Ratio 16.1 (10-20); Bilirubin,Total 0.6 mg/dl (0.2-1.0); Creatinine Clr Calc Pharmacy 121.6 ml/min; Globulin 2.6 gm/dl (2.5-4.0); Potassium 4.6 mmol/L (3.5-5.1); Total Protein 6.5 gm/dl (6.0-8.3)
--- NOTE | 2024-08-06 09:40 | Gastrointestinal Consultation ---
<Statement entered by Ryan Ansari MD - 08/06/24 15:31> Case discussed with Adolfo MCCLELLAN. This is a chronic condition (about 2 years) and Hgb stable and hemodynamically stable. Appropriate to treat acute admitting illness and pursue colonoscopy as OP. IP GI Service will sign off. Date of Consultation August 06, 2024 Assessment & Plan (1) Hematochezia: 33 year old male admitted w/ MRSA infection, hand abscess, cellulitis - GI asked to evaluate for painless hematochezia which has occurred a few days a week for at least two years. DDX discussed: suspected outlet bleeding, internal/external hemorrhoids. No indication for inpatient evaluation - stable HGB, CTAP without acute findings. Recommend optimization of health w/ treatment of recurrent abscess prior to elective endoscopic evaluation. Agree w/ ID consultation. We are happy to arrange an OP diagnostic colonoscopy to rule out other etiologies of bleeding. Avoid constipation/straining. Supplemental fiber daily. Trend H&H. Monitor and document GI output. I spent a total of 45 minutes on the date of service in review of patient's record, and previously obtained information in person and appropriate medical visit, discussion and education of plan, with patient and/or caregiver, placing orders for tests/referral/procedures as medically necessary and documentation of pertinent clinical information in patient's medical records for their visit today. Thank you for allowing us to participate in the care of this patient. Please call with any acute changes, questions or concerns. Please see addendum below with additional recommendation from my supervising physician. History of Present Illness Reason for Consultation: rectal bleeding Requesting Physician: Wai Trujillo MD Attending Physician: Wai Trujillo MD History of Present Illness 33 year old male incarcerated at [facility] admitted through the ED w/ cellulitis, abscess of left hand, MRSA colonization - GI was asked to evaluate for rectal bleeding. He tells me the rectal bleeding is chronic and unchanged for at least two years. Reports painless hematochezia w/ blood coating the stool, in toilet bowl and on toilet tissue for at least two years. Notes this occurs most days, suggesting maybe 3-4 days a week he sees blood with BMs. Denies black stools. No abd pain. No nausea, vomiting. No weight loss. No fever, chills ,CP, SOB. No family history of IBD No family history of GI malignancy HGB 12.5 BUN 14 CTAP 2023: No acute abnormalities in this patient with rectal bleeding. EGD: none Colonoscopy: none Allergies Allergy/AdvReac Type Severity Reaction Status Date / Time piperacillin [From Zosyn] Allergy Itching Verified 05/07/24 10:08 tazobactam [From Zosyn] Allergy Itching Verified 05/05/24 23:38 Home Medications Medication Instructions Recorded Confirmed Type ferrous sulfate 325 mg (65 mg 325 mg PO QAM #30 tabs 05/12/24 08/05/24 Rx iron) tablet,delayed release acetaminophen 325 mg tablet 325 mg PO TID PRN Pain 08/05/24 08/05/24 History (Tylenol) amoxicillin 875 mg-potassium 1 tab PO BID 08/05/24 08/05/24 History clavulanate 125 mg tablet benzoyl peroxide 10 % topical gel 1 applic topical DAILY 08/05/24 08/05/24 History benzoyl peroxide 5 % topical 1 applic topical DAILY 08/05/24 08/05/24 History cleanser chlorhexidine gluconate 0.12 % 15 ml buccal DAILY 08/05/24 08/05/24 History mouthwash (Periogard) lidocaine 5 % topical ointment 1 applic topical BID PRN Unknown 08/05/2408/05 History meloxicam 7.5 mg tablet 7.5 mg PO DAILY 08/05/24 08/05/24 History Patient History Social History Smoking Status: Current some day smoker Tobacco Type: E-cigarettes / Vaping Second Hand Exposure: No; Do You Dip or Chew Tobacco: No; Hx Alcohol Use: Yes Alcohol type: beer, wine and hard liquor Hx Substance Use: Yes Last Used Substance Other:: 2019 Preferred Language: Slovak Communication Ability: Effective Corporate Services Manager Required: No Beliefs That Will Affect Care: [facility] Current Living Situation: Other Current Living Situation Comment: [facility] Feels Safe at Home: Yes Assistive Devices: None Review of Systems Review of Systems: All other findings negative except as noted in HPI. Physical Exam Constitutional: WD/WN, vitals as above Respiratory: normal respiratory effort Cardiovascular: Rate/Rhythm: regular rate and regular rhythm Gastrointestinal (Abdomen): normal bowel sounds, soft, nontender, no hepatosplenomegaly Skin: no rashes, warm and dry Results & Data Vital Signs (Past 12 Hours) Vital Signs Temp Pulse Resp BP Pulse Ox O2 Del Method 08/06/24 07:31 36.6 C 64 18 116/65 96 Room Air 08/06/24 00:42 36.8 C 73 17 116/80 96 Room Air Laboratory Results 08/06/24 08/05/24 08/05/24 Range/Units 06:29 16:56 09:26 WBC 7.42 8.97 (4.8-10.8) K/ul RBC 4.16 L 4.61 L (4.70-6.10) M/uL Hgb 12.5 L 13.4 L (14.0-18.0) g/dl Hct 35.1 L 39.1 L (42.0-52.0) % MCV 84.4 84.8 (80.0-100.0) fL MCH 30.0 29.1 (25.0-34.0) pg MCHC 35.6 34.3 (32.0-36.0) g/dL RDW Std Deviation 39.8 40.2 (36.4-46.3) fL RDW Coeff of Leslye 12.9 13.1 (11.5-14.5) % Plt Count 182 199 (130-400) K/uL MPV 9.0 L 9.0 L (9.4-12.4) fL Immature Gran % (Auto) 0.9 % Neut % (Auto) 64.8 % Lymph % (Auto) 24.5 % [place] % (Auto) 8.5 % Eos % (Auto) 0.9 % Baso % (Auto) 0.4 % Neut # (Auto) 5.81 (1.40-6.50) K/uL Lymph # (Auto) 2.20 (1.20-3.40) K/uL [place] # (Auto) 0.76 H (0.11-0.59) K/uL Eos # (Auto) 0.08 (0.00-0.50) K/uL Baso # (Auto) 0.04 (0.00-0.20) K/uL Immature Gran # (Auto) 0.08 (0.01-0.20) K/uL ESR 48 H (0-15) mm/hr PT 10.2 (9.0-12.0) Seconds INR 0.9 (0.9-1.1) Sodium 139 137 (136-145) mmol/L Potassium 4.6 4.5 (3.5-5.1) mmol/L Chloride 105 105 (98-107) mmol/L Carbon Dioxide 30 25 (21-32) mmol/L Anion Gap 4 7 (3-11) BUN 14 13 (6-23) mg/dl Creatinine 0.87 0.80 (0.6-1.4) mg/dl Est Cr Clr Drug Dosing 121.6 133.9 ml/min eGFR 115.40 118.36 BUN/Creatinine Ratio 16.1 16.3 (10-20) Glucose 86 94 (70-99(Fasting)) mg/dl Calcium 9.0 10.1 (8.6-10.3) mg/dl Total Bilirubin 0.6 0.6 (0.2-1.0) mg/dl AST 32 40 H (13-39) U/L ALT 30 29 (7-52) U/L Alkaline Phosphatase 56 55 (34-104) U/L C-Reactive Protein 5.64 H (0-0.5) mg/dl Total Protein 6.5 7.5 (6.0-8.3) gm/dl Albumin 3.9 4.6 (3.4-5.0) gm/dl Globulin 2.6 2.9 (2.5-4.0) gm/dl Albumin/Globulin Ratio 1.5 1.6 (0.9-2) Procalcitonin < 0.02 (0-0.5) ng/ml Nasal Screen MRSA (PCR) Positive A (Negative) Hepatitis C Antibody Negative (Negative) HIV 1&2 Ab/P24 Ag 4thGn Negative (Negative) PG Care Time/CCT Total # of Minutes Spent Total Time Spent with Patient: Total time spent is greater than 50% in coordination of care (as documented) at patient's floor/unit and/or counseling patient: Coding Level of Care Code 00578 IN/OBS CONSULT LVL 3,45M Diagnoses Hematochezia K92.1
[2024-08-06] MEDS: DAPTOmycin 275 MG in SYRINGE 0 ML IV SCH (11:25)
[2024-08-06] MEDS: oxyCODONE HCL IR 5 MG TAB (IMMEDIATE RELEASE) PO PRN (11:25)
--- NOTE | 2024-08-06 11:43 | Hospitalist Progress Note ---
Date of Service August 06, 2024 Assessment & Plan (1) MRSA colonization: (2) Abscess of right shoulder: (3) Hematochezia: Plan Assessment and plan: Left hand cellulitis Abscess at dorsal aspect of 4th [address] hand: 14 x 8 x 13mm abscess dorsal aspect 4th metacarpal Pt remains NPO Orthopedics consulted Blood cultures NGTD, will need to get intraoperative cultures, previous have grown MSSA continue IV dapto/cefepime +probiotic- ID consulted obtain ESR, CRP, KERWIN with reflex and immunoglobulin panel with GAMED to r/o immunodeficiency given recurrent infections not classic locations for hidradenitis will need derm and immunology follow up as outpt HIV/Hep C negative Hematochezia: hgb stable, occurring weekly for over a year CTAP w/o abnormality recommend outpt colonoscopy and routine bowel habits Iron deficiency anemia: hgb stable, resume iron MRSA colonization MRSA nares + pt high risk for MRSA infection given living in correction and recurrent abscess will place on bactroban to nares BID x 10 days also apply to R knee, R shoulder and L cheek discharge on chlorhexidine washes daily for 10 days Full code DVT prophylaxis: SCDs, Dispo: from [facility] I spent a total of 46 minutes minutes reviewing notes, outpatient records, labs, medication, coordinating, documenting and providing care for this patient excluding time spent in the performance of separately billed services. Admission and Anticipated Discharge Date Admission Date: August 05, 2024 Supervising Physician Co-Signing Physician Notes Patient was seen and examined at bedside as a follow-up of left hand cellulitis and abscess. Patient also reports having have dark red blood in stool for over a year per patient. Hb is at his baseline, pt can get colonoscopy as OP. monitor HnH. For left hand abscess, Ortho taking him to the OR for I&D. Patient reports having history of recurrent boils, currently has boils in his right knee/left cheek/right side of nape of neck/left hand. HIV is neg. Will send immunoglobin levels, patient perhaps will benefit from immunological evaluation as an outpatient. ID evaluated, recommends vancomycin. Follow blood culture and wound culture. On exam: Left hand boil noted, left hand with clean dressing around the wrist. Right knee/left cheek/right nape of neck boils noted. Rest of the examination as above. Total time spent: 30 minutes. Case was discussed with Layne DILLARD. I have seen and examined the patient and have discussed the case with the provider above. I agree with the assessment and plan as stated. Subjective Pt reports current abscess and boils. Mostly on L side of body, but this time has one on his R knee, right shoulder, L cheek and L wrist. He is very frustrated and wants to get to the bottom of why he is getting recurrent infections despite treatment. He reports bathing in peroxide daily at the correction. He felt chilled last night, but denies documented fever, sweats, cp, sob, n/v. He has been NPO since last night. Review of Systems Review of Systems: All systems reviewed & are unremarkable except as noted in HPI & below Physical Exam Constitutional: WD/WN, vitals as above Eyes: PERRL, conjunctivae normal, anicteric sclerae Respiratory: normal respiratory effort, lungs clear to auscultation Cardiovascular: RRR, no murmur, no edema Musculoskeletal: no cyanosis or clubbing, extremities motor strength 5/5 Skin: + carbuncle on R knee with surrounding e rythema, healing subcutaneous lesion on R upper posterior thorax, L cheek and significant abscess to L dorsal wrist Results & Data Results & Data Vital Signs (Past 12 Hours) Vital Signs Temp Pulse Resp BP Pulse Ox O2 Del Method 08/06/24 07:31 36.6 C 64 18 116/65 96 Room Air 08/06/24 00:42 36.8 C 73 17 116/80 96 Room Air Laboratory Results Short CBC 08/06/24 Range/Units 06:29 WBC 7.42 (4.8-10.8) K/ul Hgb 12.5 L (14.0-18.0) g/dl Hct 35.1 L (42.0-52.0) % Plt Count 182 (130-400) K/uL BMP 08/06/24 06:29 Sodium 139 Potassium 4.6 Chloride 105 Carbon Dioxide 30 BUN 14 Creatinine 0.87 Glucose 86 Calcium 9.0 Liver Function 08/06/24 Range/Units 06:29 Total Bilirubin 0.6 (0.2-1.0) mg/dl AST 32 (13-39) U/L ALT 30 (7-52) U/L Alkaline Phosphatase 56 (34-104) U/L Albumin 3.9 (3.4-5.0) gm/dl Medications Administered Current Inpatient Medications Acetaminophen (Acetaminophen 325 Mg Tab) 650 mg PO Q4H PRN PRN Reason: pain/fever Stop: 09/04/24 15:50 Cetirizine HCl (Cetirizine Oral Soln 1 Mg/Ml) 10 mg PO DAILY RENETTA Stop: 09/04/24 17:14 Last Admin: 08/05/24 18:44 Dose: 10 mg Diphenhydramine HCl (Diphenhydramine 50 Mg/Ml Vial) 25 mg IV Q6H PRN PRN Reason: Itching Stop: 09/04/24 21:53 Last Admin: 08/06/24 10:14 Dose: 25 mg Hydromorphone HCl (Hydromorphone Inj 0.5 Mg/0.5 Ml Syr) 0.5 mg IV Q4H PRN PRN Reason: Pain Stop: 08/19/24 21:55 Last Admin: 08/06/24 08:41 Dose: 0.5 mg Lactated Ringer's (Lr) 1,000 mls @ 125 mls/hr IV .Q8H RENETTA Stop: 09/04/24 10:44 Last Admin: 08/06/24 04:35 Dose: 125 mls/hr Daptomycin 275 mg/ Syringe 5.5 mls @ 2.75 mls/min IV Q24H RENETTA; Protocol Stop: 08/13/24 11:59 Last Admin: 08/06/24 11:25 Dose: 2.75 mls/min Cefepime HCl (Maxipime 2000mg) 2,000 mg in 20 mls @ 5 mls/min IV Q12H RENETTA Stop: 08/12/24 22:59 Last Admin: 08/06/24 11:25 Dose: 5 mls/min Lactobacillus Acidophilus (Advanced Probiotic 625 Mg Capsule) 1,250 mg PO DAILY RENETTA Stop: 09/04/24 08:59 Last Admin: 08/06/24 07:26 Dose: 1,250 mg Oxycodone HCl (Oxycodone Hcl Ir 5 Mg Tab (Immediate Release)) 5 - 10 mg PO QID PRN PRN Reason: Pain Stop: 08/19/24 21:54 Last Admin: 08/06/24 11:25 Dose: 10 mg Pantoprazole Sodium (Pantoprazole 40 Mg Tab) 40 mg PO BID [facility] Stop: 09/04/24 20:59 Last Admin: 08/06/24 07:24 Dose: 40 mg Zinc Acetate/Diphenhydramine (Diphenhydramine 2%/Zinc 0.1% Cream 28.4gm Tube) 1 appln EXT QID PRN PRN Reason: itchy skin Stop: 09/05/24 00:42 Last Admin: 08/06/24 01:06 Dose: 1 appln
[2024-08-06] MEDS ORDERED: MUPIROCIN 2% OINT 22 GM TUBE EXT SCH (12:15)
--- NOTE | 2024-08-06 12:42 | Orthopedic Progress Note ---
Date of Service August 06, 2024 Assessment & Plan (1) Abscess of left hand: Plan: 33-year-old male with recurrent abscesses of unclear etiology. He is clearly got a significant abscess to his dorsum of his left hand that needs washed out. The right knee looks like it is forming an abscess and we will address this at the same time. His shoulder looks benign and without signs of pus and does not need surgical intervention. He will need a course of antibiotics postoperatively anywhere from 2 to 4 weeks. There is cements of irrigation debridement of the left hand and right knee were explained and he understands informed consent was obtained. (2) Abscess of right knee: Admission and Anticipated Discharge Date Admission Date: August 05, 2024 Subjective 33-year-old male prisoner well-known to me from a previous left wrist abscess who presents now with a left hand abscess and some right knee pain. He developed these abscesses of unclear etiology. He is also had some oral abscesses. He has been admitted by the medicine service. We have been consulted. Dr. Domínguez saw him yesterday. He is really no better. The hand c ontinues to hurt. Got a little bit of knee pain but not too bad. Physical Exam Physical Exam: Physical nation of the left hand reveals an obvious abscess on the back of his hand between the fourth and fifth metacarpal area. Looks to be in the subcu tissues. He can flex extend his fingers with some mild pain. No signs of major tendon involvement. He is neurologically intact. Examination the right knee reveals some redness around the front of his knee if he is got a small pimple with a little bit of pustule like material in it. No obvious big abscess. No knee effusion. He is got normal knee motion. Examination right shoulder reveals a scab on the back of his shoulder. There is no pus or purulence. Nontender. Looks to be healing. Results & Data Vital Signs (Past 12 Hours) Vital Signs Temp Pulse Resp BP Pulse Ox O2 Del Method 08/06/24 07:31 36.6 C 64 18 116/65 96 Room Air 08/06/24 00:42 36.8 C 73 17 116/80 96 Room Air
--- NOTE | 2024-08-06 12:43 | Infectious Disease Consult ---
Date of Service August 06, 2024 Telehealth Information I performed this visit using a real-time telehealth connection between my location and the patients location ([facility]). After connecting through interactive tele-video, patient was identified by name and date of and/or wristband check.Patient (or authorized healthcare technical sales representatives) was informed that this was a telemedicine visit and it was being conducted confidentially over secure lines. My office door was closed and no o ne else was present in the room with me.Patient (or authorized healthcare technical sales representatives) provided consent to proceed with the visit, expressed an understanding of privacy and security of the telemedicine visit, and gave permission to have a hospital technical sales representatives in the room in order to assist with the visit and to conduct portions of the visit, as needed. I informed the patient (or authorized healthcare technical sales representatives) that I reviewed their record and presented the opportunity for them to ask any questions regarding the visit today. The patient agreed to participate. Assessment & Plan (1) Cutaneous abscess: Plan: Assessment: Recurrent abscesses (currently on L hand, R upper back, R knee and L face) MRSA colonization Inmate Hx of allergy to pip/tazo (itching) Recommendations: - Stop daptomycin - Stop cefepime - Start vancomycin iv to maintain auc 400-600 - F/u blood cultures (08/05) - Pending OR debridement: please, send samples for routine bacgterial cultures - Will continue to follow I recommend to provide empirica antibiotic that covers the usual skin pathogens such as MRSA and Streptococcus spp. Antibiotic therapy can be adjusted according to the OR culture results. Given the recurrent nature of the soft tissue infection, patient will perhaps benefit from a long-term course of suppressive abx. I spent a total of 60 minutes coordinating, documenting, and providing care for this patient excluding time spent in the performance of separately billed services or time spent by another provider/QHP. (2) Recurrent infection of skin: History of Present Illness History of Present Illness This is a 33 y/o male ([place]) from alf w/ hx of prior L hand abscess s/p I&D (05/07/24: wound cx positive w/ MSSA), who was admitted to [facility] on 08/05/24 for relapsed abscess on L hand which started about 1 week ago. He was noted to have small abscesses on L face along the del castillo line, R knee and R shoulder near the midline at T1-2 level. No fever or leukocytosis but elevated CRP. CT of the L hand showed diffuse soft tissue edema about the dorsal aspect of the hand w/ a rim-enhancing fluid collection measuring 14 x 8 x 13 mm in the dorsal aspect of the fourth metacarpal but no osseous abnormalities. The patient is currently on cefepime and daptomycin iv. Found to have hematochezia and seen by GI for follow-up and evaluation in near future. The patient is scheduled for I&D today. He has cloudy headache that started about 2 minues ago. No n/v, abd pain, diarrhea, urinary symptoms, cp, or sob. He reports intermittent coughing. He is able to make a fist w/ L hand but w/ some difficulty due to edema. Denies use of injection drugs. He has been on oral abx off and on but often. He used to try to squeeze pimples but not doing that anymore for past few months. Isabel, patients nurse, assisted during the patient encounter. Allergies Allergy/AdvReac Type Severity Reaction Status Date / Time piperacillin [From Zosyn] Allergy Itching Verified 05/07/24 10:08 tazobactam [From Zosyn] Allergy Itching Verified 05/05/24 23:38 Home Medications Medication Instructions Recorded Confirmed Type ferrous sulfate 325 mg (65 mg 325 mg PO QAM #30 tabs 05/12/24 08/05/24 Rx iron) tablet,delayed release acetaminophen 325 mg tablet 325 mg PO TID PRN Pain 08/05/24 08/05/24 History (Tylenol) amoxicillin 875 mg-potassium 1 tab PO BID 08/05/24 08/05/24 History clavulanate 125 mg tablet benzoyl peroxide 10 % topical gel 1 applic topical DAILY 08/05/24 08/05/24 History benzoyl peroxide 5 % topical 1 applic topical DAILY 08/05/24 08/05/24 History cleanser chlorhexidine gluconate 0.12 % 15 ml buccal DAILY 08/05/24 08/05/24 History mouthwash (Periogard) lidocaine 5 % topical ointment 1 applic topical BID PRN Unknown 08/05/24 08/05/24 History meloxicam 7.5 mg tablet 7.5 mg PO DAILY 08/05/24 08/05/24 History Patient History Social History Smoking Status: Current some day smoker Tobacco Type: E-cigarettes / Vaping Second Hand Exposure: No; Do You Dip or Chew Tobacco: No; Hx Alcohol Use: Yes Alcohol type: beer, wine and hard liquor Hx Substance Use: Yes Last Used Substance Other:: 2019 Preferred Language: Citizen Of [place] Communication Ability: Effective Appraiser Personal Property Required: No Beliefs That Will Affect Care: Sikh Current Living Situation: Other Current Living Situation Comment: [facility] Feels Safe at Home: Yes Assistive Devices: None Review of Systems as HPI and all others negative Physical Exam Physical exam: In no acute distress but disheveled Breathing comfortably on room air Alert and oriented x3, conversant Edema, erythema and pus-filled bisters noted on L hand, swelling and round erythema (1-2 cm) noted L face along the del castillo line, R upper back in near the midline at T1-2 level, and R patellar area No limited ROM or swelling on R knee noted. Results & Data Vital Signs (Past 12 Hours) Vital Signs Temp Pulse Resp BP Pulse Ox O2 Del Method 08/06/24 07:31 36.6 C 64 18 116/65 96 Room Air 08/06/24 00:42 36.8 C 73 17 116/80 96 Room Air Laboratory Results WBC 7.42K H 12.5 Plt 182K Cr 0.87 (CrCl 122) LFT unremarkable CRP 5.64 MRSA screen: pos Hep C ab (08/05): neg HIV ag/ab: negative Blood cx (08/05): NGTD CT L hand (08/05): The osseous structures are without fracture or dislocation. The joint spaces are maintained. No joint effusion is seen. There is diffuse soft tissue edema about the dorsal aspect of the hand. There is a rim-enhancing fluid collection measuring 14 x 8 x 13 mm in the dorsal aspect of the fourth metacarpal. Micro: L wrist cx (05/07/24): MSSA (R to clinda, tetra; S to dapto, oxa, bact, vanco fredi 2)
[2024-08-06 12:45] LABS: C Reactive Protein 5.01 mg/dl (0-0.5); Immunoglobulin A 255.9 mg/dl (70-400); Immunoglobulin G 920.1 mg/dl (635-1741); Immunoglobulin M 30.3 mg/dl (45-281)
[2024-08-06] MEDS ORDERED: VANCOMYCIN CONSULT ACTIVE PRN (13:06)
[2024-08-06] MEDS: LACTATED RINGER'S 1,000 ML IV SCH (13:17)
[2024-08-06] MEDS ORDERED: ATROPINE SULFATE 0.1 MG/ML 10ML SYR IV PRN (13:51)
[2024-08-06] MEDS ORDERED: ePHEDrine sulfate 50 MG/ML AMP IV PRN (13:51)
[2024-08-06] MEDS ORDERED: PROMETHAZINE HCL 6.25 MG in SODIUM CHLORIDE 0.9% 50 ML IV PRN (13:51)
[2024-08-06] MEDS ORDERED: fentaNYL citrate PF 100 MCG/2 ML VIAL IV PRN (13:51)
[2024-08-06] MEDS ORDERED: ONDANSETRON INJ 2 MG/ML 2 ML VIAL IV PRN ×2 (13:51→16:57)
--- NOTE | 2024-08-06 13:54 | Anesthesiology Consultation ---
Date of Service August 06, 2024 Assessment & Plan (1) Encounter for pre-operative examination: Chart Review Chart Review: Acceptable Risk for Surgery and Patient NOT seen in Pre Admission Testing Consults Requested none History Surgery Operation Date: 08/06/24 13:40 Proposed Procedures p Left Hand Incision and Drainage - Burak Menon MD Height/Weight Height: 5 ft 7 in Weight: 82.191 kg Allergies Allergy/AdvReac Type Severity Reaction Status Date / Time piperacillin [From Zosyn] Allergy Itching Verified 05/07/24 10:08 tazobactam [From Zosyn] Allergy Itching Verified 05/05/24 23:38 Medications Home Medications Medication Instructions Recorded Confirmed Last Taken ferrous sulfate 325 mg (65 mg 325 mg PO QAM #30 tabs 05/12/24 08/05/24 Unknown iron) tablet,delayed release acetaminophen 325 mg tablet 325 mg PO TID PRN Pain 08/05/24 08/05/24 Unknown (Tylenol) amoxicillin 875 mg-potassium 1 tab PO BID 08/05/24 08/05/24 Unknown clavulanate 125 mg tablet benzoyl peroxide 10 % topical gel 1 applic topical DAILY 08/05/24 08/05/24 Unknown benzoyl peroxide 5 % topical 1 applic topical DAILY 08/05/24 08/05/24 Unknown cleanser chlorhexidine gluconate 0.12 % 15 ml buccal DAILY 08/05/24 08/05/24 Unknown mouthwash (Periogard) lidocaine 5 % topical ointment 1 applic topical BID PRN Unknown 08/05/24 08/05/24 Unknown meloxicam 7.5 mg tablet 7.5 mg PO DAILY 08/05/24 08/05/24 Unknown Active Medications Generic Name Dose Route Start Last Admin Trade Name Freq PRN Reason Stop Dose Admin Cetirizine HCl 10 mg 08/05/24 17:15 08/06/24 12:23 Cetirizine Oral Soln 1 Mg/Ml PO 09/04/24 17:14 Not Given DAILY RENETTA Diphenhydramine HCl 25 mg 08/05/24 21:54 08/06/24 10:14 Diphenhydramine 50 Mg/Ml Vial IV 09/04/24 21:53 25 mg Q6H PRN Administration Itching Hydromorphone HCl 0.5 mg 08/05/24 21:56 08/06/24 08:41 Hydromorphone Inj 0.5 Mg/0.5 Ml Syr IV 08/19/24 21:55 0.5 mg Q4H PRN Administration Pain Lactated Ringer's 1,000 mls @ 125 mls/hr 08/05/24 10:45 08/06/24 12:23 Lr IV 09/04/24 10:44 125 mls/hr .Q8H RENETTA Administration Lactated Ringer's 1,000 mls @ 15 mls/hr 08/06/24 13:15 08/06/24 13:17 Lr IV 09/05/24 13:14 15 mls/hr .Q24H RENETTA Administration Lactobacillus Acidophilus 1,250 mg 08/05/24 09:00 08/06/24 07:26 Advanced Probiotic 625 Mg Capsule PO 09/04/24 08:59 1,250 mg DAILY RENETTA Administration Oxycodone HCl 5 - 10 mg 08/05/24 21:55 08/06/24 11:25 Oxycodone Hcl Ir 5 Mg Tab (Immediate Release) PO 08/19/24 21:54 10 mg QID PRN Administration Pain Zinc Acetate/Diphenhydramine 1 appln 08/06/24 00:43 08/06/24 01:06 Diphenhydramine 2%/Zinc 0.1% Cream 28.4gm Tube EXT 09/05/24 00:42 1 appln QID PRN Administration itchy skin NPO Date Last Intake of Fluids: 08/05/24 Time Last Intake of Fluids: 23:59 Last Intake of Fluids Comment: small sip with morning pills Date Last Intake of Solids: 08/05/24 Time Last Intake of Solids: 23:00 Past Medical History Medical History (Updated 08/06/24 @ 13:58 by Edwin Coates MD) Encounter for pre-operative examination Recurrent infection of skin Cutaneous abscess Abscess of right knee Abscess of left hand Exercise / Class Metabolic Activity II 4-5 Yardwork/Stairs/Walk up hill Past Surgical History I and D wrist, dental abscess. GETA. April 2024. No reported anesthesia problems. Past Anesthesia History No Hx of Anesthesia Complications and No Family Hx of Anesthesia Complications History of PONV No Hx of PONV and No Hx of Motion Sickness Social History Smoking Status: Current some day smoker Do You Dip or Chew Tobacco: No Hx Alcohol Use: Yes Alcohol type: beer, wine and hard liquor alcohol intake frequency: a few times a month Hx Substance Use: Yes substance use type: marijuana Last Used Substance Other:: 2019 Physical Exam Vital Signs Last Vital Signs Temp 36.9 C 08/06/24 13:11 Pulse 63 08/06/24 13:11 Resp 20 08/06/24 13:11 BP 125/81 08/06/24 13:11 Pulse Ox 97 08/06/24 13:11 O2 Del Method Room Air 08/06/24 13:11 Testing Laboratory Results 08/06/24 06:29 08/06/24 06:29 PT 10.2 Seconds (9.0-12.0) 08/05/24 09:26 INR 0.9 (0.9-1.1) 08/05/24 09:26 08/05/24 09:25 Aerobic Blood Culture - Preliminary Blood No growth in Aerobic bottle after 24 hours. Anaerobic Blood Culture - Preliminary No growth in Anaerobic bottle after 24 hours.
--- NOTE | 2024-08-06 14:23 | Pharmacy Report ---
Pharmacy PK ABX Note - Date of Service August 06, 2024 - Assessment and Plan Assessment * 33 year old M receiving vancomycin for treatment of recurrent abscesses of unclear etiology. He is scheduled to go to the OR today for debridement of the abscesses. Ortho recommends a 2-4 week course of antibiotics post op. * He has a history of MSSA abscesses. * He was previously on daptomycin and cefepime but ID recommended to change to vancomycin today. * Pertinent microbiologic data includes: Positive MRSA Nasal Swab, blood culture from 08/05 is pending. Day # 1 of antimicrobial therapy. Plan Vancomycin * Loading dose: 2000 mg IV x 1 * Maintenance dose: 1500 mg IV every 12 hours * Regimen is predicted to achieve target AUC/STEPHANI of 400-600 mg/L.hr * Vanco level ordered for: 08/08/24 at 1330. Pharmacy will continue to follow and will adjust dose/frequency as necessary. Thank you. Pharmacy has transitioned to AUC monitoring for vancomycin. AUC/STEPHANI is the preferred PK/PD target and is associated with decreased risk of nephrotoxicity compared to traditional trough targets.
[2024-08-06] MEDS ORDERED: fentaNYL citrate PF 100 MCG/2 ML VIAL ONE (15:01)
[2024-08-06] MEDS ORDERED: PROPOFOL IV EMULSION 10 MG/ML 20 ML VIAL IV ONE ×2 (15:01→15:17)
[2024-08-06] MEDS ORDERED: GLYCOPYRROLATE 0.2 MG/ML VIAL ONE (15:17)
--- NOTE | 2024-08-06 15:52 | Operative Report ---
PG Post Operative Report Pre & Post Diagnosis Operation Date: 08/06/24 13:40 Left hand abscess Right leg abscess I identified the patient and participated in the time-out.: Yes Procedure Operation Date: 08/06/24 13:40 #1 irrigation debridement of left hand abscess. 2. Irrigation debridement of right leg/knee abscess Surgeon Burak Menon MD Yardage Control Clerk Popeye Costello PA-C Estimated Blood Loss 5 Findings Consistent with Post-Op Diagnosis Specimens Tissue from left hand sent for tissue culture. Fluid from left hand sent for stat Gram stain aerobic and anaerobic culture. Anesthesia Type General Complications none Disposition Accompanied Patient To Recovery: No Indications Patient is a 33-year-old male prisoner is had a history of recurrent abscesses and infections. I had treated for a similar wrist type abscess about 3 months ago. Is recovered from this. He developed pain discomfort swelling of the left hand as well as beginning to get similar symptoms in his right knee. Clinical exam was consistent with developing abscesses. The patient leg was admitted to the hospitalist service begun antibiotics indicated for surgical treatment. Description of Procedure The patient was taken to the op room, identified, placed on the operating table in the supine position but all contractors were appropriately padded. Patient's been receiving IV antibiotics. A general anesthetic was implemented. A left upper extremity tourniquet was placed. Left arm was then prepped and draped in usual sterile fashion. Left arm was elevated exsanguinated. The tourniquet was placed at 250 mmHg. A slightly Juany type incision was made over the dorsal aspect the hand directly over this to act clearly abscessed area. Treatment upon making the incision there is obvious pus. The pus was cultured. I then explored the wound. I excised all fibrinous and capsular type of tissue. Did not seem to go down to involve the extensor tendons at all. I used a rongeur debride this. We sent some tissue for tissue culture. I then irrigated this extensively. I then let the tourniquet down for return time 6 minutes. Hemostasis assured this electrocautery. The wound was then packed with a Betadine soaked gauze. A sterile dressing was Xeroform, 4 fours, sterile cast padding and Brien bandage were applied. Brush [place]'s of the knee. The right leg was then prepped with ChloraPrep. I then made an incision directly over this small punctate area. There which is a small amount of pus. I explored the wound there is no further deep abscess or infection. That we irrigated this extensively. I left this open as it was only about a half a centimeter in length. Leg a sterile dressing with Xeroform, 4 fours, sterile cast padding and Brien bandage were applied. The patient then brought out of general esthesia and transferred to the recovery in stable condition. Patient tolerated the procedure well and there were no complications. Popeye Costello, physician engineer first assistant, was present for the entire procedure. His assistance was required for proper patient positioning, prepping and draping, surgical exposure, retraction, performing the technical details of the operation and closure of the incision sites and placement of the bandages. I attest to the content of the Intraoperative Record and any orders documented therein. Any exceptions are noted below.
[2024-08-06] MEDS: HYDROmorphone INJ 1 MG/ML SYRINGE IV PRN (15:57)
--- NOTE | 2024-08-06 16:08 | Anesthesiology Progress Note ---
Date of Service August 06, 2024 Anesthesia Post Procedure Vital Signs Vital Signs: Temp Pulse Resp BP Pulse Ox O2 Del Method 08/06/24 13:11 36.9 C 63 20 125/81 97 Room Air 08/06/24 07:31 36.6 C 64 18 116/65 96 Room Air 08/06/24 00:42 36.8 C 73 17 116/80 96 Room Air 08/05/24 19:56 36.8 C 78 18 142/75 H 97 Room Air Pain Intensity Left Hand: Pain Intensity: 8 Transfer of Care Handoff Completed per policy Notes Mental Status: alert / awake / arousable and participated in evaluation Patient Amnestic to Procedure: Yes Nausea / Vomiting: adequately controlled Pain: improving with treatment Airway Patency, RR, SpO2: stable & adequate BP & HR: stable & adequate Hydration State: stable & adequate Anesthetic Complications: no major complications apparent and Pt Satisfied with anesthetic care
[2024-08-06] MEDS: HYDROmorphone INJ 1 MG/ML SYRINGE ONE (16:22)
[2024-08-06] MEDS ORDERED: METOCLOPRAMIDE HCL INJ 5 MG/ML 2 ML VIAL IV PRN (16:57)
[2024-08-06] MEDS ORDERED: MAGNESIUM HYDROXIDE SUSP 30 ML UDC PO PRN (16:57)
[2024-08-06] MEDS ORDERED: bisacodyL 10 MG SUPP PR PRN (16:57)
[2024-08-06] MEDS ORDERED: NALOXONE HCL 0.4 MG/1 ML VIAL/CARP IV PRN (16:57)
[2024-08-06] MEDS: MUPIROCIN 2% OINT 22 GM TUBE EXT SCH (17:29)
[2024-08-06] MEDS: VANCOMYCIN HCL 2,000 MG in SODIUM CHLORIDE 0.9% 500 ML IV ONE (18:11)
[2024-08-06] MEDS: AMOXICILLIN/CLAVULANATE 875 MG TAB PO SCH (18:11)
[2024-08-06] MEDS: SODIUM CHLORIDE 0.9% 1,000 ML IV SCH (18:11)
[2024-08-06] MEDS: DOCUSATE SODIUM 100 MG CAP PO SCH (20:53)
[2024-08-06] MEDS: SENNA 8.6 MG TAB PO SCH (20:55)
[2024-08-06] MEDS: ACETAMINOPHEN 500 MG TAB PO SCH (23:03)
[2024-08-07] MEDS: VANCOMYCIN HCL 1,500 MG in SODIUM CHLORIDE 0.9% 500 ML IV SCH (02:16)
[2024-08-07 06:49] LABS: Basophils # (auto) 0.02 K/uL (0.00-0.20); Basophils % (auto) 0.2 %; Eosinophils # (auto) 0.01 K/uL (0.00-0.50); Eosinophils % (auto) 0.1 %; Hemoglobin 12.5 g/dl (14.0-18.0); Lymphocytes # (auto) 0.91 K/uL (1.20-3.40); Lymphocytes % (auto) 8.9 %; Mean Corpuscular Hemoglobin 29.7 pg (25.0-34.0); Mean Corpuscular Hgb Conc 35.7 g/dL (32.0-36.0); Mean Corpuscular Volume 83.1 fL (80.0-100.0); Monocytes # (auto) 0.77 K/uL (0.11-0.59); Monocytes % (auto) 7.5 %; Neutrophils # (auto) 8.47 K/uL (1.40-6.50); Neutrophils % (auto) 82.3 %; Platelet Count 225 K/uL (130-400); RDW Coefficient of Variation 12.2 % (11.5-14.5); RDW Standard Deviation 36.6 fL (36.4-46.3); Red Blood Count 4.21 M/uL (4.70-6.10); White Blood Count 10.28 K/ul (4.8-10.8)
[2024-08-07 07:23] LABS: Albumin Globulin Ratio 1.6 (0.9-2); BUN Creatinine Ratio 18.8 (10-20); Bilirubin,Total 0.5 mg/dl (0.2-1.0); Calcium 9.1 mg/dl (8.6-10.3); Creatinine Clr Calc Pharmacy 132.2 ml/min; Globulin 2.5 gm/dl (2.5-4.0); Potassium 4.2 mmol/L (3.5-5.1); Total Protein 6.5 gm/dl (6.0-8.3)
[2024-08-07] MEDS: FERROUS SULFATE 325 MG TAB PO SCH (08:20)
[2024-08-07] MEDS: MULTIVITAMIN TAB PO SCH (10:22)
--- NOTE | 2024-08-07 11:07 | Hospitalist Progress Note ---
Date of Service August 07, 2024 Assessment & Plan (1) MRSA colonization: (2) Abscess of right shoulder: (3) Hematochezia: Plan Assessment and plan: Left hand cellulitis Abscess at dorsal aspect of [address]th [address] hand: 14 x 8 x 13mm abscess dorsal aspect 4th metacarpal Orthopedics consulted Blood cultures NGTD, will need to get intraoperative cultures, previous have grown MSSA ID saw pt recommending IV vanco for now - pending intraop cultures - currently growing staph species ESR/CRP elevated, IgM immunoglobin low otherwise panel so far unrevealing not classic locations for hidradenitis will need derm follow up and 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 He was also educated on spread of infection and microtears in the skin likely leading to eventual infection/abscess Hematochezia: hgb stable, occurring weekly for over a year CTAP w/o abnormality recommend outpt colonoscopy and routine bowel habits Iron deficiency anemia: hgb stable, resume iron MRSA colonization MRSA nares + pt high risk for MRSA infection given living in longterm and recurrent abscess will place on bactroban to nares BID x 10 days also apply to R shoulder and L cheek discharge on chlorhexidine washes daily for 10 days as pt as risk for MRSA infection given recurrent skin infection Hyperglycemia fasting glucose this a.m. 217, previous fasting glucose normal obtain a1c in a.m. for screening Recurrent Headaches pt reports daily R sided frontal headaches with occasional aura, no vision changes or neuro focal deficits obtain CT head Full code DVT prophylaxis: SCDs, Dispo: from [facility] I spent a total of 45 minutes minutes reviewing notes, outpatient records, labs, medication, coordinating, documenting and providing care for this patient excluding time spent in the performance of separately billed services. Admission and Anticipated Discharge Date Admission Date: August 05, 2024 Supervising Physician Co-Signing Physician Notes I have seen and discussed the case with the collaborating advanced practitioner. I agree with the above PN. I have reviewed and confirmed the patients medical history, the findings on physical examination, and the patients diagnosis and treatment plan with Adan DILLARD and agree with the information documented. Immunoglobulin with normal IgG an IgA, low IgM. IgE pending Low suspicion for primary immunodeficiency syndrome given age of presentation (recent in last 6 months) Will plan for MRSA coverage PO once cultures finalize--perhaps linezolid for 14 days if MRSA positive and agree with mupirocin and cholhexidine scrub for eradication effort I spent a total of 10 minutes coordinating, documenting, and providing care for this patient excluding time spent in the performance of separately billed services. All of the aforementioned completed outside of collaborating with the assigned advanced practitioner for a full treatment plan. I have reviewed the advanced practitioner's documentation, and I agree with, and take responsibility for the plan of care Subjective KEKE. Continues to have pain to L wrist. S/P I and D to R knee and L wrist abscess. Complaining of daily MILLER over the last 2-3 months, no vision changes, +aura, no prior hx of migraine. Typically located R frontal. He is requesting imaging of brain. Denies f/c/s, chest pain, sob, n/v. He is tolerating diet. He moved his bowels. He is concerned when he goes back to the longterm he will not get the follow up treatment he needs. He feels if he was sent here sooner he likely would not have needed surgical intervention. Review of Systems Review of Systems: All systems reviewed & are unremarkable except as noted in HPI & below Physical Exam Constitutional: WD/WN, vitals as above Eyes: PERRL, conjunctivae normal, anicteric sclerae Respiratory: normal respiratory effort, lungs clear to auscultation Cardiovascular: RRR, no murmur, no edema Musculoskeletal: no cyanosis or clubbing, extremities motor strength 5/5 Skin: + Dressing to L forearm/R knee. + carbun rod to L cheek improving, R base of neck + lesion with surrounding erythema, no drainage Results & Data Results & Data Vital Signs (Past 12 Hours) Vital Signs Temp Pulse Resp BP Pulse Ox O2 Del Method 08/07/24 07:45 37.0 C 83 18 158/71 H 96 Room Air 08/07/24 03:55 36.7 C 84 16 153/63 H 96 Room Air 08/07/24 00:00 36.7 C 84 16 175/62 H 94 Room Air Laboratory Results Short CBC 08/07/24 Range/Units 06:15 WBC 10.28 (4.8-10.8) K/ul Hgb 12.5 L (14.0-18.0) g/dl Hct 35.0 L (42.0-52.0) % Plt Count 225 (130-400) K/uL BMP 08/07/24 06:15 Sodium 137 Potassium 4.2 Chloride 104 Carbon Dioxide 27 BUN 15 Creatinine 0.80 Glucose 217 H Calcium 9.1 Liver Function 08/07/24 Range/Units 06:15 Total Bilirubin 0.5 (0.2-1.0) mg/dl AST 25 (13-39) U/L ALT 28 (7-52) U/L Alkaline Phosphatase 66 (34-104) U/L Albumin 4.0 (3.4-5.0) gm/dl Medications Administered Current Inpatient Medications Acetaminophen (Acetaminophen 325 Mg Tab) 650 mg PO Q4H PRN PRN Reason: pain/fever Stop: 09/04/24 15:50 Acetaminophen (Acetaminophen 500 Mg Tab) 1,000 mg PO Q8 RENETTA Stop: 09/05/24 21:59 Last Admin: 08/07/24 06:02 Dose: 1,000 mg Bisacodyl (Bisacodyl 10 Mg Supp) 10 mg CO DAILY PRN PRN Reason: Constipation Stop: 09/05/24 16:56 Cetirizine HCl (Cetirizine Oral Soln 1 Mg/Ml) 10 mg PO DAILY RENETTA Stop: 09/04/24 17:14 Last Admin: 08/07/24 08:21 Dose: 10 mg Diphenhydramine HCl (Diphenhydramine 50 Mg/Ml Vial) 25 mg IV Q6H PRN PRN Reason: Itching Stop: 09/04/24 21:53 Last Admin: 08/07/24 08:41 Dose: 25 mg Docusate Sodium (Docusate Sodium 100 Mg Cap) 100 mg PO BID RENETTA Stop: 09/05/24 20:59 Last Admin: 08/07/24 08:18 Dose: 100 mg Ferrous Sulfate (Ferrous Sulfate 325 Mg Tab) 325 mg PO QAM RENETTA Stop: 09/06/24 08:59 Last Admin: 08/07/24 08:20 Dose: 325 mg Hydromorphone HCl (Hydromorphone Inj 0.5 Mg/0.5 Ml Syr) 0.5 mg IV Q4H PRN PRN Reason: Pain Stop: 08/19/24 21:55 Last Admin: 08/07/24 08:22 Dose: 0.5 mg Lactated Ringer's (Lr) 1,000 mls @ 15 mls/hr IV .Q24H [facility] Stop: 09/05/24 13:14 Last Infusion: 08/06/24 14:57 Dose: Infused Vancomycin HCl 1,500 mg/ (Sodium Chloride) 530 mls @ 200 mls/hr IV Q12H [facility] Stop: 08/14/24 01:59 Last Infusion: 08/07/24 05:02 Dose: Infused Lactobacillus Acidophilus (Advanced Probiotic 625 Mg Capsule) 1,250 mg PO DAILY [facility] Stop: 09/04/24 08:59 Last Admin: 08/07/24 08:20 Dose: 1,250 mg Magnesium Hydroxide (Magnesium Hydroxide Susp 30 Ml Udc) 30 ml PO Q6H PRN PRN Reason: Constipation Stop: 09/05/24 16:56 Metoclopramide HCl (Metoclopramide Hcl Inj 5 Mg/Ml 2 Ml Vial) 10 mg IV Q6H PRN PRN Reason: Nausea And Vomiting Stop: 09/05/24 16:56 Miscellaneous Information (Vancomycin Consult Active) 1 each N/A UD PRN PRN Reason: Consult Stop: 09/05/24 13:05 Multivitamins (Multivitamin Tab) 1 tab PO QAM [facility] Stop: 09/06/24 08:59 Last Admin: 08/07/24 10:22 Dose: 1 tab Mupirocin (Mupirocin 2% Oint 22 Gm Tube) 1 appln EXT BID [facility] Stop: 08/16/24 12:14 Last Admin: 08/07/24 08:21 Dose: 1 appln Naloxone HCl (Naloxone Hcl 0.4 Mg/1 Ml Vial/Carp) 0.1 mg IV Q5M PRN PRN Reason: Oversedation/Resp Depression Stop: 09/05/24 16:56 Ondansetron HCl (Ondansetron Inj 2 Mg/Ml 2 Ml Vial) 4 mg IV Q6H PRN PRN Reason: Nausea And Vomiting Stop: 09/05/24 16:56 Oxycodone HCl (Oxycodone Hcl Ir 5 Mg Tab (Immediate Release)) 5 - 10 mg PO QID PRN PRN Reason: Pain Stop: 08/19/24 21:54 Last Admin: 08/07/24 10:29 Dose: 10 mg Sennosides (Senna 8.6 Mg Tab) 17.2 mg PO HS RENETTA Stop: 09/05/24 20:59 Last Admin: 08/06/24 20:55 Dose: 17.2 mg Zinc Acetate/Diphenhydramine (Diphenhydramine 2%/Zinc 0.1% Cream 28.4gm Tube) 1 appln EXT QID PRN PRN Reason: itchy skin Stop: 09/05/24 00:42 Last Admin: 08/07/24 03:19 Dose: 1 appln
[2024-08-07] MEDS: MUPIROCIN 2% OINT 22 GM TUBE EXT SCH (12:52)
[2024-08-07] MEDS: OPTIRAY 320 100ml IV ONE (13:10)
[2024-08-07] MEDS: ACETAMINOPHEN 325 MG TAB PO PRN (13:54)
--- NOTE | 2024-08-07 15:42 | CT Scan Report ---
CT SCAN OF THE BRAIN WITH IV CONTRAST CLINICAL HISTORY: Headaches. COMPARISON STUDY: No priors. TECHNIQUE: Axial CT scan of the brain is performed from the vertex to the skull base following the IV administration of 94 cc of Optiray 320. IV contrast was administered without complication. A dose l owering technique was utilized adhering to the principles of ALARA. Note that evaluation for hemorrha ge is degraded by the presence of IV contrast. CT DOSE: 547.75 mGy.cm FINDINGS: Brain parenchyma: The brain parenchyma is normal in appearance. There is no evidence of hemorrhage, m ass effect, or acute territorial ischemia by CT criteria. No enhancing mass lesion is suspected. Ratliff -white matter differentiation is preserved. No extra-axial fluid collection is seen. Ventricles, sulci, cisterns: Normal in configuration. Intracranial vasculature: The visualized intracranial vasculature at the skull base is normal in appe arance. Calvarium: Unremarkable. Sinuses and mastoids: The visualized paranasal sinuses are clear. The mastoid air cells are well pneu matized. Orbits: The bony orbits are grossly intact. IMPRESSION: No acute intracranial abnormality. ACT 112: Negative or not required by law. Electronically signed by: Tal Bynum M.D. 08/07/2024 3:40 PM
--- NOTE | 2024-08-07 17:53 | Orthopedic Progress Note ---
Date of Service August 07, 2024 Assessment & Plan (1) Abscess of left hand: Plan: 33-year-old gentleman postop day 1 from I&D of left hand abscess and right knee abscess. He is doing well. Plan: We will plan on leave the dressings in place for today and begin dressing changes tomorrow. Will likely start soaking his hand twice a day and do wet-to-dry dressing changes. The wound care nurse has been consulted to assist in care with this. The plan would be a wet-to-dry dressing changes twice a day on the hand. Just needs routine the dressing changes to the knee once a day. Antibiotics will be tailored based on sensitivities. He can follow-up in wound clinic as needed. Any orthopedic questions can be directly [phone] (2) Abscess of right knee: Admission and Anticipated Discharge Date Admission Date: August 05, 2024 Subjective 33-year-old gentleman postop day 1 from a left hand I&D and right leg I&D. Gram stain was positive for staph species. He is doing better today. The hand is feeling some better. Still little bit sore. No new complaints. No pain at all in the right knee. Physical Exam Physical Exam: Physical exam shows a pleasant middle-age male. Examination left hand reveals dressing clean dry and intact he can flex his DIP and stand his fingers appropriately. Some mild swelling. Examination the right knee reveals a dressing in place. He can do a straight leg raise. No tenderness. He is neurologically intact. No drainage. Results & Data Vital Signs (Past 12 Hours) Vital Signs Temp Pulse Resp BP Pulse Ox O2 Del Method 08/07/24 14:25 36.9 C 80 18 159/72 H 96 Room Air 08/07/24 13:00 36.9 C 82 18 130/70 95 Room Air 08/07/24 11:00 36.9 C 82 18 131/74 94 Room Air 08/07/24 07:45 37.0 C 83 18 158/71 H 96 Room Air Laboratory Results Gram stain result reveals gram-positive cocci. Cultures are growing staph. Sensitivities pending
[2024-08-07] MEDS: MELATONIN 3 MG TAB PO SCH (21:33)
[2024-08-07 23:09] VITALS: PULSE 69
[2024-08-08 07:31] LABS: Basophils # (auto) 0.13 K/uL (0.00-0.20); Basophils % (auto) 1.1 %; Eosinophils % (auto) 2.5 %; Hematocrit (blood only) 35.9 % (42.0-52.0); Hemoglobin 12.4 g/dl (14.0-18.0); Immature Granulocytes % (auto) 4.1 %; Lymphocytes # (auto) 3.44 K/uL (1.20-3.40); Lymphocytes % (auto) 28.1 %; Mean Corpuscular Hemoglobin 29.1 pg (25.0-34.0); Mean Corpuscular Hgb Conc 34.5 g/dL (32.0-36.0); Mean Corpuscular Volume 84.3 fL (80.0-100.0); Mean Platelet Volume 9.1 fL (9.4-12.4); Monocytes # (auto) 1.23 K/uL (0.11-0.59); Monocytes % (auto) 10.1 %; Neutrophils # (auto) 6.63 K/uL (1.40-6.50); Neutrophils % (auto) 54.1 %; Platelet Count 220 K/uL (130-400); RDW Coefficient of Variation 12.6 % (11.5-14.5); RDW Standard Deviation 38.7 fL (36.4-46.3); Red Blood Count 4.26 M/uL (4.70-6.10); White Blood Count 12.23 K/ul (4.8-10.8)
[2024-08-08 07:55] LABS: BUN Creatinine Ratio 16.5 (10-20); Calcium 8.6 mg/dl (8.6-10.3); Creatinine Clr Calc Pharmacy 116.2 ml/min; Potassium 4.1 mmol/L (3.5-5.1)
[2024-08-08 07:56] VITALS: RESP 18; O2SAT 96
[2024-08-08] MEDS: INFLUENZA VACC TS2024-25(6m+)/PF (IIV3) 0.5mL Syr IM ONE (09:36)
[2024-08-08 14:31] LABS: Estimated Average Glucose 111 mg/dl; Hemoglobin A1C 5.5 % (4.5-5.6)
[2024-08-08] MEDS: VANCOMYCIN LEVEL ONE (14:48)
--- NOTE | 2024-08-08 15:37 | Discharge Summary ---
Discharge Summary Date of Service August 08, 2024 Principal Dx & Hospital Course #1 = Principal Diagnosis (1) MRSA colonization: (2) Abscess of right shoulder: (3) Hematochezia: Plan The patient is a 33-year-old male with no significant past medical history, presenting from [facility] on 08/05/2024 with concerns of left hand infection and found to have MSSA. Left hand cellulitis Abscess at dorsal aspect of 4th met[address] CT hand: 14 x 8 x 13mm abscess dorsal aspect 4th metacarpal Orthopedics consulted - S/p I&D L hand and R leg ID consulted - recommended vanco Blood cultures NGTD Intraoperative cultures growing MSSA, similar to previous ESR/CRP elevated, IgM immunoglobin low otherwise panel so far unrevealing, HIV/Hep C negative Suspect patient getting recurrent boils from "itching/picking" - has improved with antihistamine Not classic locations for hidradenitis Will need derm follow up Based on resulting wound culture sensitivities, will discharge patient on 10 days of Bactrim BID. ID does not feel a chronic suppressive abx has a role at this time MRSA colonization MRSA nares + pt high risk for MRSA infection given living in jail and recurrent abscess Discharge on Bactroban to nares BID x 10 days (also apply to R shoulder and L cheek) Discharge on chlorhexidine washes daily for 10 days as pt as risk for MRSA infection given recurrent skin infection Hematochezia Hgb stable, occurring weekly for over a year CTAP w/o abnormality Recommend outpt colonoscopy and routine bowel habits Continue stool softener 100mg BID, discussed increasing water intake as well Iron deficiency anemia Hgb stable, resume iron Hyperglycemia fasting glucose this a.m. 217, previous fasting glucose normal A1c from 08/08 is WNL at 5.5 Discussed plan with provider at [facility] over the phone. They have medications on formulary. Patient hemodynamically stable at time of discharge to [facility]. Notes For Next Care Provider Recurrent MSSA abscesses, left hand abscess s/p I&D Medication Changes From Visit Bactrim 800/160mg tablet twice a day x 10 days Bactroban to nares BID x 10 days Chlorhexidine washes daily for 10 days Sodium docusate 100mg BID added 2/2 constipation Zyrtec antihistamine daily PRN itching Admission HPI Per Admitting Provider The patient is a 33-year-old male with no significant past medical history, currently resides in [facility] who presents to the ER today on 08/05/2024 with concerns of left hand infection. Patient reports over the past 6 months he has been developing boils and sores on different places of his body. He was recently hospitalized and discharged on 05/12/2024 after he was admitted with left upper extremity cellulitis s/p left wrist/left bicep washout. At this time he was seen by infectious disease and orthopedics and he was discharged home on Keflex and Flagyl for 7 days after his wound culture grew MSSA, blood cultures were negative at that time. He has been incarcerated for about 5 years and he reports he recently switched jails and he has been noticing the sores over the past 6 months. He denies any history of autoimmune disorders. He reports being tested for HIV and hepatitis 4 months ago which were negative. He denies any fever/chills/nausea/vomiting/abdominal pain. Today, there is a boil on his right shoulder, right knee and left cheek. He reports that most of the cyst/abscesses recur on his left side. At the time of his last hospitalization, patient also had a dental abscess in the left side of his mouth s/p #10 tooth ex traction and palatal/abscess drainage. He also reported some bright red blood per rectum over the past week with each bowel movement. Reports it is like "a girl with her period". Denies any pain with bowel movements and reports having a daily bowel movement, denies constipation or diarrhea. The patient was given IV Dapto/cefepime in the ED which will be continued On arrival to the ED, labs are fairly unremarkable. No leukocytosis Left hand x-ray did not show any signs of osteomyelitis or abscess The patient will be admitted for further management of left hand cellulitis Admission Exam Per Admitting Provider Constitutional: WD/WN, vitals as above Eyes: PERRL, conjunctivae normal, anicteric sclerae ENMT: external ear and nose normal, oropharynx normal Neck: trachea midline, no thyromegaly Respiratory: normal respiratory effort, lungs clear to auscultation Cardiovascular: RRR, no murmur, no edema Gastrointestinal (Abdomen): normal bowel sounds, soft, nontender, no hepatosplenomegaly Musculoskeletal: no cyanosis or clubbing, extremities motor strength 5/5 Skin: no rashes, warm and dry Left hand cyst/redness/cellulitis, right knee redness, right upper shoulder cyst, currently draining, left cheek boil Neurologic: PERRL, EOMI, accommodation nl, no face palsy, no dysarthria Psychiatric: A+Ox3, euthymic affect Lymphatic: no cervical or axillary lymphadenopathy Discharge Exam Gen: WD/WN, NAD, resting comfortably, A&Ox3 HEENT: Normocephalic, atraumatic, conjunctivae moist, sclerae anicteric, mucous membranes moist Lung: Clear to Auscultation bilaterally, no wheezes/rales/rhonchi Heart: Regular rate, regular rhythm, no murmurs, rubs, or gallops Abdomen: Soft, NT, ND +BS x 4 Extremities:+ Dressing to L forearm/R knee. + lesion on L cheek improving, + healing lesion R base of neck lesion with surrounding erythema, no drainage, no edema Skin: Warm, no rash Updated Medication List Medication Instructions Recorded Confirmed Type ferrous sulfate 325 mg (65 mg 325 mg PO QAM #30 tabs 05/12/24 08/05/24 Rx iron) tablet,delayed release acetaminophen 325 mg tablet 325 mg PO TID PRN Pain 08/05/24 08/05/24 History (Tylenol) amoxicillin 875 mg-potassium 1 tab PO BID 08/05/24 08/05/24 History clavulanate 125 mg tablet benzoyl peroxide 10 % topical gel 1 applic topical DAILY 08/05/24 08/05/24 History benzoyl peroxide 5 % topical 1 applic topical DAILY 08/05/24 08/05/24 History cleanser chlorhexidine gluconate 0.12 % 15 ml buccal DAILY 08/05/24 08/05/24 History mouthwash (Periogard) lidocaine 5 % topical ointment 1 applic topical BID PRN Unknown 08/05/24 08/05/24 History meloxicam 7.5 mg tablet 7.5 mg PO DAILY 08/05/24 08/05/24 History cetirizine 10 mg tablet 10 mg PO DAILY PRN allergy 08/08/24 Rx symptoms #30 tabs docusate sodium 100 mg capsule 100 mg PO BID #30 caps 08/08/24 Rx mupirocin 2 % topical ointment 1 applic EXT BID #15 grams 08/08/24 Rx sulfamethoxazole 800 1 tab PO BID 10 days #20 tabs 08/08/24 Rx mg-trimethoprim 160 mg tablet (Bactrim DS) Hospital Stay Data Consultations 08/05/24 12:09 ED Decision to Admit Stat 08/05/24 13:06 Consult Orthopedic Surgery Routine 08/05/24 15:51 Consult Infectious Diseases Routine 08/05/24 22:58 Consult Gastroenterology Routine 08/06/24 16:57 Consult Wound Care Provider Routine Procedures Performed Operation Date: 08/06/24 13:40 Actual Procedures p Left Hand Incision and Drainage; Right Knee Incision and Drainage(Not Applicable) - Burak Menon MD Diagnostic Imagining Performed 08/05/24 13:10 CT hand LT w con Stat 08/05/24 15:51 CT Abdomen and Pelvis [CT abd pelvis wo con] Routine 08/07/24 11:00 CT head/brain w con Routine Pending Results Patient Have Any Pending Studies at Discharge: Yes Discharge Instructions Given to Patient (Per Discharging Provider) MEDICATION CHANGES: Bactrim 800/160mg tablet twice a day x 10 days Bactroban to nares BID x 10 days Chlorhexidine washes daily for 10 days Sodium docusate 100mg BID added 2/2 constipation Zyrtece antihistamine daily as needed for itching SUMMARY OF TEST RESULTS: You were admitted for left hand cellulitis, abscess on dorsal aspect of hand s/p I&D HIV/Hep C negative IgM immunoglobin low otherwise panel so far unrevealing Wound culture grew MSSA susceptible to Bactrim Blood culture negative RECOMMENDATIONS FOR FOLLOW-UP: Follow up with PCP as scheduled. Complete antibiotic in its entirety. Continue medication regimen as scheduled aside from changes noted above. Recommend outpatient colonoscopy for occasional hematochezia, continue BID stool softener OTHER INSTRUCTIONS: Seek medical attention if you have: * temperature above 101 * chest pain or trouble breathing * abdominal pain, nausea, vomiting * diarrhea, dark stools or bloody stools * any unanswered questions or concerns Call 911 if symptoms are severe. Please take good care of yourself. Call if you have any questions or problems. You can reach a [facility] hospitalist on duty at [facility] 24 hours a day by calling [phone]. Total Time Total Time Spent Total Time Spent (In Minutes): 60 Supervising Physician Co-Signing Physician Notes I have seen and discussed the case with the collaborating advanced practitioner. I agree with the above DS. I have reviewed and confirmed the patients medical history, the findings on physical examination, and the patients diagnosis and treatment plan with Sinna DILLARD and agree with the information documented. Evaluated patient. Discussed avoiding scratching/itching/picking tendencies. Discussed case with ID to complete course of bactrim. Agree with bactroban/chlorhexadine while healing at [facility] given high risk/hx of mrsa. I spent a total of 10 minutes coordinating, documenting, and providing care for this patient excluding time spent in the performance of separately billed services. All of the aforementioned completed outside of collaborating with the assigned advanced practitioner for a full treatment plan. I have reviewed the advanced practitioner's documentation, and I agree with, and take responsibility for the plan of care
[2024-08-08 15:42] VITALS: BP 131/78; TEMP 98.1
[2024-08-08] MEDS ORDERED: VANCOMYCIN HCL 1,250 MG in SODIUM CHLORIDE 0.9% 250 ML IV SCH (23:00)
[2024-08-09 01:33] LABS: Anti Nuclear Antibody Screen NEGATIVE (NEGATIVE); Immunoglobulin D 26 mg/L (<179); Immunoglobulin IgE 107 kU/L (<OR=114)
== END 2024-08-08 18:50 | DRG 580 ==
LOC: ED 08:33 → EDINP 12:16 → SUATTDRO 12:16 → 3W 15:36